=== PATIENT | male | born 1965 | race Hispanic/Latino ===

== ENCOUNTER 2019-05-24 16:59 | Inpatient (IN) | payer MEDICARE, OTHER ==
[~2019-05-24] VITALS: Ht 175.3 cm; Wt 110.5 kg
[~2019-05-24 16:59] MED LIST: FUROSEMIDE40 MG PO; HYDRALAZINE HCL25 MG PO; METOPROLOL TART25 MG PO
--- NOTE | 2019-05-24 17:12 | NUR ---
PT TAKEN TO RM 5 VIA W/C AND PLACED ON STRETCHER. PT VERY DIAPHORETIC AND STARTED SEIZING. CPR STARTED
--- NOTE | 2019-05-24 17:15 | NUR ---
SEE CODE BLUE SHEET FOR MEDS GIVEN DURING CPR.
[2019-05-24] MEDS ORDERED: SODIUM CHLORIDE 0.9% 1000ML 1,000 ML IV STA (17:18)
[2019-05-24] MEDS ORDERED: SODIUM CHLORIDE 0.9% 1000ML 1,000 ML ONE (17:22)
[2019-05-24] MEDS ORDERED: SODIUM BICARBONATE 8.4% SYRING 50 ML ONE (17:29)
[2019-05-24 17:39] LABS: BASOPHILS # (AUTO) 0.1 (0.0-0.1); BASOPHILS % 0.7 % (0.0-1.0); EOSINOPHILS # (AUTO) 0.3 (0.0-0.4); EOSINOPHILS % 2.7 % (0.0-6.0); HEMATOCRIT 41.9 % (38.2-49.6); HEMOGLOBIN 13.5 g/dL (14.0-18.0); LYMPHOCYTES # (AUTO) 4.3 (1.0-3.2); LYMPHOCYTES % 41.2 % (18.0-39.1); MEAN CORPUSCULAR HEMOGLOBIN 33.6 pg (28-32); MEAN CORPUSCULAR HGB CONC 32.2 g/dL (31-35); MEAN CORPUSCULAR VOLUME 104.2 fL (81-99); MONOCYTES # (AUTO) 0.7 (0.2-0.8); MONOCYTES % 6.9 % (4.4-11.3); NEUTROPHILS % 48.2 % (38.7-80.0); PLATELET COUNT 216 x10e3/uL (140-360); RED BLOOD COUNT 4.02 x10e6/uL (4.3-5.7); RED CELL DISTRIBUTION WIDTH 15.6 % (11.7-14.4)
[2019-05-24 17:54] LABS: ALBUMIN/GLOBULIN RATIO 0.9 (0.8-2.0); ANION GAP 28.2 mmol/L (8-16); CALCIUM 10.4 mg/dL (8.4-10.2); CREATININE, SERUM 11.52 mg/dL (0.72-1.25); POTASSIUM 4.2 mmol/L (3.5-5.1)
[2019-05-24 17:54] LABS: INR 1.04; PROTHROMBIN TIME 14.1 seconds (11.9-14.5)
[2019-05-24 17:55] LABS: PARTIAL THROMBOPLASTIN TIME 28.5 seconds (23.8-35.5)
[2019-05-24 18:13] LABS: THYROID STIMULATING HORMONE 1.029 uIU/mL (0.350-4.940)
[2019-05-24] MEDS ORDERED: LIDOCAINE HCL 2% LOCAL 20 ML VIAL ONE (18:15)
[2019-05-24] MEDS ORDERED: NITROGLYCERIN/D5W 200 MCG/ML 250 ML ONE (18:15)
[2019-05-24] MEDS ORDERED: HEPARIN SOD/SOD CHLORIDE 2,000 ML ONE (18:15)
--- NOTE | 2019-05-24 18:15 | NUR ---
DR. SPRING HAS UPDATED PT'S FAMILY.
--- NOTE | 2019-05-24 18:15 | Diagnostic Imaging Report ---
EXAMINATION: CHEST SINGLE (PORTABLE) INDICATION: Shortness of breath, intubation. COMPARISON: Chest radiograph 07/17/2014. FINDINGS: TUBES and LINES: ET tube terminates 2.4 cm above the reyna. LUNGS: The lungs are moderately inflated. There are are diffuse bilateral airspace opacities. PLEURA: No pleural effusion or pneumothorax. HEART AND MEDIASTINUM: The cardiomediastinal silhouette is unremarkable. BONES AND SOFT TISSUES: No acute osseous abnormality. UPPER ABDOMEN: No free air under the diaphragm. IMPRESSION: Diffuse bilateral airspace opacities, which may reflect pulmonary edema and/or multifocal pneumonia. ET tube as above. No evidence of pneumothorax Signed by: Dr. Sakshi Kaufman MD on 05/24/2019 6:11 PM
[2019-05-24 18:17] LABS: B-TYPE NATRIURETIC PEPTIDE2 560.7 pg/mL (0-100)
[2019-05-24] MEDS ORDERED: HEPARIN SOD (PORCINE) 1000 UNIT/ML 30ML ONE (18:18)
--- NOTE | 2019-05-24 18:18 | Diagnostic Imaging Report ---
Examination: CT BRAIN WO History:Seizures Comparison studies:None Technique: Axial images were obtained from the skull base to the vertex. Coronal and sagittal images reconstructed from the axial data. Dose modulation, iterative reconstruction, and/or weight based adjustment of the mA/kV was utilized to reduce the radiation dose to as low as reasonably achievable. Intravenous contrast: None Findings: Scalp: No abnormalities. Bones: No fractures, blastic or lytic lesions. Brain sulci: Appropriate for age. Ventricles: Normal in size and configuration. No hydrocephalus. Extra-axial space: No abnormalities. Parenchyma: No masses, hemorrhage, or acute or chronic cortical based vascular insults.. Sellar/suprasellar region: No abnormalities. Craniocervical junction: Patent foramen magnum. No Chiari one malformation. Incidental findings: None. Impression: No intracranial abnormalities. Signed by: Dr. Blanquita Fraser M.D. on 05/24/2019 6:15 PM
[2019-05-24] MEDS ORDERED: FENTANYL CITRATE/PF 100MCG/2 ML INJ ONE (18:19)
[2019-05-24] MEDS ORDERED: MIDAZOLAM HCL 2 MG/2 ML VIAL ONE (18:19)
[2019-05-24 18:22] LABS: ABG HCO3 28 mmol/L (23-28); ABG PCO2 71 mmHg (41-51); ABG PO2 68 mmHg (80-105)
--- NOTE | 2019-05-24 18:25 | NUR ---
DR. Vivek BROWNING HAS SPOKEN WITH [facility] INTERVENTIONS
--- NOTE | 2019-05-24 18:35 | NUR ---
PT. TAKEN TO RESIDENT MANAGER.
[2019-05-24] MEDS ORDERED: IOPAMIDOL 370 MG/ML 200 ML INFUS..BTL INJ ONE (18:45)
[2019-05-24] MEDS ORDERED: ATROPINE SULFATE 0.1 MG/ML 10ML SYR ONE ×3 (18:50→23:42)
--- NOTE | 2019-05-24 18:51 | NUR ---
FAMILY ESCORTED TO BILLING AND QUALITY TECHNICIAN WAITING ROOM.
[2019-05-24 19:22] VITALS: BP 173/89
--- OUTSIDE RECORDS SUMMARY | 2019-05-24 19:39 | XMS REPORT ---
Author Author [facility] Address Unknown Phone Unavailable Care Team Providers Care Machine Operator Cane Cutter Name Role Phone Javad SPRING Unavailable Unavailable Problems This patient has no known problems. Allergies, Adverse Reactions, Alerts This patient has no known allergies or adverse reactions. Medications This patient has no known medications. Results Test Description Test Time Test Comments Text Results Atomic Results Result Comments CT BRAIN WO 2019-05-24 18:12:00 [place] [id number] Patient Name: LUDWIG MCGEE MR #: [id number] : 1965 Age/Sex: 53/M Req #: [id number] Adm Physician: Ordered by: FARNAZ SPRING MD Report #: [id number] Location: ER Room/Bed: Procedure: [id number] CT/CT BRAIN WO Exam Date: 05/24/19 Exam Time: 1800 REPORT STATUS: Signed Examination: CT BRAIN WO History:Seizures Comparison studies:None Technique: Axial images were obtained from the skull base to the vertex. Coronal and sagittal images reconstructed from the axial data. Dose modulation, iterative reconstruction, and/or weight based adjustment of the mA/kV was utilized to reduce the radiation dose to as low as reasonably achievable. Intravenous contrast: None Findings: Scalp: No abnormalities. Bones: No fractures, blastic or lytic lesions. Brain sulci: Appropriate for age. Ventricles: Normal in size and configuration. No hydrocephalus. Extra-axial space: No abnormalities. Parenchyma: No masses, hemorrhage, or acute or chronic cortical based vascular insults.. Sellar/suprasellar region: No abnormalities. Craniocervical junction: Patent foramen magnum. No Chiari one malformation. Incidental findings: None. Impression: No intracranial abnormalities. Signed by: Dr. Blanquita Fraser M.D. on 05/24/2019 6:15 PM Dictated By: BLANQUITA HERNANDEZ MD 14 Transcribed By: BRIAN on 05/24/191814 COPY TO: FARNAZ SPRING MD CHEST SINGLE (PORTABLE) 2019-05-24 18:09:00 [place] [id number] Patient Name: LUDWIG MCGEE MR #: [id number] : 1965 Age/Sex: 53/M Req #: [id number] Adm Physician: Ordered by: CARMINE CHAVES AUTOMOBILE BODY REPAIR SUPERVISOR Report #: [id number] Location: ER Room/Bed: Procedure: [id number] DX/CHEST SINGLE (PORTABLE) Exam Date: 05/24/19 Exam Time: 1735 REPORT STATUS: Signed EXAMINATION: CHEST SINGLE (PORTABLE) INDIC ATION: Shortness of breath, intubation. COMPARISON: Chest radiograph 07/17/2014. FINDINGS: TUBES and LINES: ET tube terminates 2.4 cm above the reyna. LUNGS: The lungs are moderately inflated. There are are diffuse bilateral airspace opacities. PLEURA: No pleural effusion or pneumothorax. HEART AND MEDIASTINUM: The cardiomediastinal silhouette is unremarkable. BONES AND SOFT TISSUES: No acute osseous abnormality. UPPER ABDOMEN: No free air under the diaphragm. IMPRESSION: Diffuse bilateral airspace opacities, which may reflect pulmonary edema and/or multifocal pneumonia. ET tube as above. No evidence of pneumothorax Signed by: Dr. Kamila Chavira MD on 05/24/2019 6:11 PM Dictated By: KAMILA CHAVIRA MD 10 Transcribed By: BRIAN on 05/24/191810 COPY TO: CARMINE CHAVES NP
[2019-05-24 20:00] VITALS: BP 161/87
[2019-05-24] MEDS: PROPOFOL IV EMULSION 10MG/ML 100 ML IV SCH (20:14)
[2019-05-24] MEDS ORDERED: HYDRALAZINE HCL 20 MG/ML VIAL IV PRN (20:30)
[2019-05-24 21:00] VITALS: BP 122/72
[2019-05-24] MEDS: SODIUM CHLORIDE 0.9% 1000ML 1,000 ML IV SCH (21:42)
[2019-05-24] MEDS ORDERED: DEXMEDETOMIDINE 200MCG/NS 50ML 50 ML IV ONE (21:57)
[2019-05-24 22:00] VITALS: BP 115/78
[2019-05-24] MEDS ORDERED: DEXMEDETOMIDINE HCL 200 MCG in SODIUM CHLORIDE 0.9% 50ML 48 ML IV PRN ×2 (22:00→23:00)
[2019-05-24] MEDS ORDERED: ALBUMIN 25% 12.5GM 0.25 GM/ML BTL IV ONE (22:00)
[2019-05-24 23:00] VITALS: BP 115/78
[2019-05-24] MEDS ORDERED: EPINEPHRINE HCL 1:1000 1ML 4.8 MG in DEXTROSE 5% 250ML 300 ML IV SCH (23:11)
[2019-05-24] MEDS ORDERED: LORAZEPAM INJ 2 MG/ML VIAL IV ONE (23:30)
[2019-05-24] MEDS ORDERED: EPINEPHRINE HCL SYRINGE ONE (23:32)
[2019-05-24] MEDS ORDERED: SODIUM CHLORIDE 0.9% INJ PRN ×2 (23:45)
[2019-05-24] MEDS ORDERED: LORAZEPAM INJ PRN ×2 (23:45)
[2019-05-24 23:53] LABS: BASOPHILS % 0.2 % (0.0-1.0); EOSINOPHILS # (AUTO) 0.1 (0.0-0.4); EOSINOPHILS % 0.9 % (0.0-6.0); HEMATOCRIT 36.7 % (38.2-49.6); HEMOGLOBIN 12.3 g/dL (14.0-18.0); LYMPHOCYTES # (AUTO) 0.8 (1.0-3.2); LYMPHOCYTES % 4.7 % (18.0-39.1); MEAN CORPUSCULAR HEMOGLOBIN 33.7 pg (28-32); MEAN CORPUSCULAR HGB CONC 33.5 g/dL (31-35); MONOCYTES # (AUTO) 1.1 (0.2-0.8); MONOCYTES % 6.9 % (4.4-11.3); NEUTROPHILS # (AUTO) 13.9 (2.1-6.9); NEUTROPHILS % 86.9 % (38.7-80.0); RED BLOOD COUNT 3.65 x10e6/uL (4.3-5.7); RED CELL DISTRIBUTION WIDTH 15.7 % (11.7-14.4)
[2019-05-24 23:58] LABS: MEAN CORPUSCULAR VOLUME 100.5 fL (81-99); PLATELET COUNT 181 x10e3/uL (140-360)
[2019-05-25] VITALS (23 sets, daily range): BP systolic 77–149; BP diastolic 48–87
[2019-05-25 00:11] LABS: ALBUMIN 4.3 g/dL (3.5-5.0); ALBUMIN/GLOBULIN RATIO 1.1 (0.8-2.0); ANION GAP 25.3 mmol/L (8-16); CALCIUM 10.5 mg/dL (8.4-10.2); CREATININE, SERUM 9.23 mg/dL (0.72-1.25)
[2019-05-25 00:14] LABS: POTASSIUM 5.3 mmol/L (3.5-5.1)
[2019-05-25] MEDS ORDERED: DEXTROSE 5% 250ML 250 ML IV ONE (00:17)
[2019-05-25] MEDS ORDERED: EPINEPHRINE HCL SYRINGE ONE (00:17)
[2019-05-25 00:18] LABS: CREATINE KINASE MB 47.2 ng/mL (0-5.0)
--- NOTE | 2019-05-25 00:40 | NUR ---
Called and spoke with Dr Norman. Notified of rapid response due to HR 28. Pt is now paced at 60 bpm. BP has been 70/80 systolic, but now 90's systolic. The pt is awake and oriented. Dr Vivek Patiño ordered dopamine drip.
[2019-05-25] MEDS ORDERED: CEFEPIME 1GM/NS 0.9% 50 ML 50 ML IV SCH (02:00)
[2019-05-25] MEDS ORDERED: DOXYCYCLINE 100MG/NS 100ML 100 ML IV SCH ×2 (02:00→03:45)
--- NOTE | 2019-05-25 03:00 | NUR ---
Dr No at bedside place a short right IJ line after unsuccessful attempt inserting triple lumen.
--- NOTE | 2019-05-25 03:33 | Diagnostic Imaging Report ---
EXAMINATION: CHEST SINGLE (PORTABLE) COMPARISON: Chest x-ray 05/24/2019 INDICATION: ^chf; S/P CENTRAL LINE PLACEMENT ^[id number] ^0310 DISCUSSION: Frontal view of the chest obtained at 0314 hours. HEART AND MEDIASTINUM: The heart is enlarged and stable in morphology LINES: Endotracheal tube terminates 5 to 6 cm above the reyna. A central venous catheter is not visualized. No evidence of enteric tube. LUNGS: Low lung volumes. Diffuse airspace opacities show some improvement. PLEURA: No pleural effusion or pneumothorax. BONES AND SOFT TISSUES: No focal osseous lesion. The soft tissues are normal. IMPRESSION: No evidence for central line. Endotracheal tube as described above. Minimal improvement in alveolar consolidation. Signed by: Dr. Isabell Faust MD on 05/25/2019 3:30 AM
[2019-05-25 03:57] LABS: ABG HCO3 30 mmol/L (23-28); ABG PCO2 49 mmHg (41-51); ABG PO2 249 mmHg (80-105)
[2019-05-25] MEDS: LORAZEPAM INJ 2 MG/ML VIAL IV PRN ×6 (04:02→23:53)
[2019-05-25] MEDS ORDERED: SODIUM CHLORIDE 0.9% 250ML 250 ML ONE (04:04)
[2019-05-25] MEDS: DOXYCYCLINE 100MG/NS 100ML 100 ML IV SCH ×2 (04:52→15:26)
[2019-05-25 05:04] LABS: BASOPHILS % 0.1 % (0.0-1.0); HEMATOCRIT 37.7 % (38.2-49.6); HEMOGLOBIN 12.4 g/dL (14.0-18.0); LYMPHOCYTES # (AUTO) 0.6 (1.0-3.2); LYMPHOCYTES % 4.3 % (18.0-39.1); MEAN CORPUSCULAR HEMOGLOBIN 33.4 pg (28-32); MEAN CORPUSCULAR HGB CONC 32.9 g/dL (31-35); MEAN CORPUSCULAR VOLUME 101.6 fL (81-99); MONOCYTES # (AUTO) 0.6 (0.2-0.8); MONOCYTES % 4.8 % (4.4-11.3); NEUTROPHILS # (AUTO) 12.1 (2.1-6.9); NEUTROPHILS % 90.3 % (38.7-80.0); PLATELET COUNT 169 x10e3/uL (140-360); RED BLOOD COUNT 3.71 x10e6/uL (4.3-5.7); RED CELL DISTRIBUTION WIDTH 15.7 % (11.7-14.4)
[2019-05-25 05:10] LABS: INR 1.06; PROTHROMBIN TIME 14.3 seconds (11.9-14.5)
[2019-05-25] MEDS ORDERED: MIDAZOLAM HCL 2 MG/2 ML VIAL ONE ×5 (05:10→17:27)
[2019-05-25 05:11] LABS: PARTIAL THROMBOPLASTIN TIME 27.1 seconds (23.8-35.5)
[2019-05-25 05:17] LABS: ALBUMIN 4.3 g/dL (3.5-5.0); ALBUMIN/GLOBULIN RATIO 1.1 (0.8-2.0); ANION GAP 24.9 mmol/L (8-16); CALCIUM 10.2 mg/dL (8.4-10.2); CREATININE, SERUM 9.75 mg/dL (0.72-1.25)
[2019-05-25 05:23] LABS: POTASSIUM 6.9 mmol/L (3.5-5.1)
--- NOTE | 2019-05-25 05:30 | NUR ---
Right IJ not flushing, unable to obtain blood return. Dr. French to bedside and placed left IJ triple lumen cath x 1 attempt. Patient tolerated procedure well
[2019-05-25] MEDS ORDERED: SOD POLYSTYRENE SULFONATE SUSP 15 GM/60 ML BTL PO STA (05:31)
[2019-05-25] MEDS ORDERED: CALCIUM GLUCONATE 10% INJ 0.465 MEQ/ML VIAL IV STA (05:31)
[2019-05-25] MEDS ORDERED: DEXTROSE 50% SYRINGE 50 ML IV STA (05:31)
[2019-05-25 05:42] LABS: CREATINE KINASE MB 85.6 ng/mL (0-5.0)
[2019-05-25] MEDS ORDERED: INSULIN REGULAR, HUMAN 100 UNIT/1 ML 3ML VIAL IV ONE (05:45)
--- NOTE | 2019-05-25 05:55 | NUR ---
Called Dr. Nelson with labs, informed of orders received from Dr. French to treat elevated potassium. Orders received to redraw BMP - specimen obtained and taken to lab. will hold all treatment until new lab results reported to Dr. Nelson.
--- NOTE | 2019-05-25 05:59 | Diagnostic Imaging Report ---
EXAMINATION: CHEST SINGLE (PORTABLE) COMPARISON: Chest x-ray 0314 hours INDICATION: ^S/P CVC PLACEMENT DISCUSSION: Frontal view of the chest obtained at 0535 hours. HEART AND MEDIASTINUM: The heart is enlarged and stable in morphology. The aorta is tortuous LINES: Right IJ catheter terminates in the brachiocephalic vein. Endotracheal tube terminates approximate 5 cm above the reyna. LUNGS: Stable low lung volumes. No change in diffuse pulmonary infiltrates PLEURA: No pleural effusion or pneumothorax. BONES AND SOFT TISSUES: No focal osseous lesion. The soft tissues are normal. IMPRESSION: Left IJ catheter terminates in the brachiocephalic vein without pneumothorax. No change in diffuse pulmonary infiltrates. Endotracheal tube as described above. Signed by: Dr. Isabell Faust MD on 05/25/2019 5:55 AM
--- NOTE | 2019-05-25 06:04 | NUR ---
Spoke with ER physician, Dr. Gillian momin to use left IJ central line
--- NOTE | 2019-05-25 06:45 | Consultation ---
DATE OF CONSULTATION: 05/24/2019 Pulmonary and Critical Care Medicine Consult REASON FOR REFERRAL: Respiratory failure, multiorgan dysfunction. HISTORY OF PRESENT ILLNESS: Mr. Duke is a pleasant 53-year-old gentleman with shortness of breath. The patient came to emergency room with shortness of breath, but he was seem to have increasing shortness of breath. The patient degenerated into asystole. He had 8 minutes into return of spontaneous circulation. The patient was intubated during the time frame. The patient after the arrest had some arrhythmia of bradycardia, possibly junctional rhythm with bradycardia into the 30 beats per minute. The patient required pressors and positive chronotropes. The patient's chest x-ray with manish pulmonary edema. He did have dialysis already of 3 hours with 2 L out. He did eventually recover full neurologic status, asking and writing complex questions. PAST MEDICAL HISTORY: Diabetes, hypertension, ESRD, chronic anemia, peripheral vascular disease, status post toe amputation, possible obstructive sleep apnea. MEDICATIONS: Medication list reviewed per the chart record. ALLERGIES: NO KNOWN DRUG ALLERGIES. SOCIAL HISTORY: No smoking. No drinking. No drugs. He is and at bedside. FAMILY HISTORY: Noncontributory. REVIEW OF SYSTEMS: Cannot get as he is intubated, not speaking. OBJECTIVE: VITAL SIGNS: Afebrile, vital signs stable recently but poorly. He is looking better and more stable with heart rate 110 beats per minute. HEENT: Normocephalic, atraumatic. NECK: Supple. Throat midline. LUNGS: Bilateral air entry, rare rhonchi. CARDIOVASCULAR: S1, S2. No murmurs, rubs, or gallops. ABDOMEN: Soft and nontender. EXTREMITIES: No clubbing. No cyanosis. There is no edema. INTEGUMENT: No rash. No purpura. LABORATORY DATA: ABG; 7.20/21/68/28. 5.2 potassium, 25 bicarbonate, 14 BUN, 9.2 creatinine. 6 white count, 37 hematocrit, 181 platelets. The albumin was 4.3, globulin 3.8, troponin was 6.3, 561 BNP, lactic acid 84. TSH normal. 16 white count, 37 hematocrit, 101 platelets. Chest x-ray with manish pulmonary edema, intubated. CT scan of the head with no acute abnormality. IMPRESSION AND PLAN: 1. Acute respiratory failure, intubated. 2. Pulmonary edema. 3. Abnormal chest x-ray, possible pneumonia. 4. Status post cardiac arrest. 5. Critical bradycardia, possible junctional rhythm versus atrial fibrillation with junctional rhythm versus other sick sinus syndrome with bradycardia. 6. End-stage renal disease. 7. Hypertension. 8. Diabetes. 9. Chronic anemia. 10. Peripheral vascular disease, status post toe amputation. 11. Shock, likely attributed. Heart catheterization just done with no obstructive coronary artery disease, LVEF 65%. 12. Encephalopathy, multifactorial including mild anoxia, resolving fast. 13. Shock. Multiple orders given. Maintain blood pressure and heart rate. Maintain intubated. Adjust settings and check blood gas. Continue positive chronotrope and mild inotrope. Sedate him for safety and comfort. We will follow along closely. Greater than 30 minutes in direct care today, multiple evaluations and intervention. Thank you very much, Dr. Miranda and Dr. Mcgraw for allowing me a chance to participate in the care of Mr. Braxton Duke. Please call with any questions. MD MARLENE Mcallister/ROBER /[id number]
[2019-05-25 06:57] LABS: ANION GAP 22.3 mmol/L (8-16); CALCIUM 9.7 mg/dL (8.4-10.2); CREATININE, SERUM 9.86 mg/dL (0.72-1.25)
--- NOTE | 2019-05-25 07:15 | Operative Report ---
DATE OF PROCEDURE: 05/25/2019 SURGEON: Fredi No MD PROCEDURE: Central venous catheter placement, ultrasound guided. INDICATION: Medication administration, shock. CONSENT: Informed consent obtained from the patient. ANESTHESIA: 5 mL 1% anesthesia administered twice due to need to reprep the patient. OPERATIVE FINDINGS: Under ultrasound guidance, the patient had sterile prep and drape. The patient had ultrasound identification of the right internal jugular vein at the anterior triangle area. The central venous catheter needle was inserted on three different occasions into the right IJ with limitation on advancement of the guidewire. As we cannot confirm full advancement of the guidewire, we never dilated into this area as there was consideration for obstruction at this level. Thereafter, we prepped the patient once again with more 1% lidocaine to get that 5 mL total and the single- lumen short internal jugular catheter was inserted into the right internal jugular vein without difficulty. There was flow back upon aspiration and this line was flushed and sutured in place. Therefore, the procedure was terminated after. Difficult/aborted placement of the three-lumen central venous catheter via the right internal jugular access. Consideration for venous obstruction. Thereafter successful single-lumen short internal jugular catheter passed into right internal jugular vein with ultrasound guidance successfully. RECOMMENDATION: May use line. Continue to get chest x-ray not to confirm the line placement but to ensure there is no pneumothorax after procedure. Consideration can be per Renal or Vascular specialist and the need to further study the venous anatomy if indicated. MD MARLENE Mcallister/MODL /[id number] MTDMayte
[2019-05-25 07:17] LABS: POTASSIUM 6.3 mmol/L (3.5-5.1)
--- NOTE | 2019-05-25 07:53 | NUR ---
NOTIFIED MD DIAZ OF CRITICAL LABS STATES HE HAS ALREADY SPOKEN TO DIALYSIS NURSE
--- NOTE | 2019-05-25 08:18 | NUR ---
SPOKE TO REGARDING POC, STATES HE WILL CALL EP DOC TO DISCUSS FURTHER POC.
[2019-05-25] MEDS: FAMOTIDINE 20 MG/2 ML VIAL IV SCH (08:21)
[2019-05-25] MEDS: HEPARIN SOD (PORCINE) 5,000 UNIT/ML VIAL SC SCH ×2 (08:28→20:21)
[2019-05-25] MEDS ORDERED: RENVELA0.8 GM PO (10:33)
[2019-05-25] MEDS ORDERED: SODIUM BICARBO650 MG PO (10:34)
[2019-05-25] MEDS ORDERED: CLONIDINE HCL0.1 MG PO (10:34)
--- NOTE | 2019-05-25 12:42 | Consultation ---
DATE OF CONSULTATION: 05/25/2019 Renal Consultation HISTORY OF PRESENT ILLNESS: Thank you for the consultation. Mr. Duke is a well known patient of mine, 53-year-old male patient with a past medical history significant for end-stage renal disease. The patient has been on hemodialysis, Saturday, Saturday, and Saturday at [facility] under my care. The patient also has a prior history of hypertension. In any case, the patient came into the hospital emergency room apparently with shortness of breath. Chest x-ray was consistent with what appears to be pulmonary edema. During his time in the emergency room apparently, the patient became unresponsive and underwent a Code ABC, had to be intubated. Subsequently, was taken urgently to the cardiac cath lab technologist and also urgently had dialysis treatment yesterday for about 2-1/2 hours, about 2 L of fluid were removed. The patient's potassium this morning was high at 6.9, was treated medically and repeat potassium was slightly better at 6.3. He remains intubated. However, he is responsive to commands and follows commands appropriately. The patient is currently seen on the dialysis treatment, which he is tolerating. He is being dialyzed on a low-potassium bath. He also remains on low-dose dopamine to keep his heart rate up since he has been getting more bradycardic without it. He is also scheduled to have a pacemaker placed later today. Most of the history is obtained from the chart. The patient is unable to provide any history since he is intubated and sedated. PAST MEDICAL HISTORY: As outlined above. MEDICATIONS: That he takes at home, metoprolol, hydralazine, furosemide, and Renvela. Medications have all been reviewed per chart. REVIEW OF SYSTEMS: As in HPI, otherwise all systems negative or not obtainable. FAMILY HISTORY: Noncontributory. SOCIAL HISTORY: No tobacco, no alcohol use. ALLERGIES: NO KNOWN DRUG ALLERGIES. PHYSICAL EXAMINATION: VITAL SIGNS: Blood pressure 140s/70s, heart rate is in the 100, and 18 respiration. The patient is on the vent. HEENT: No cervical lymphadenopathy. NECK: Supple without masses. No obvious JVD. Moist-appearing mucosa. SKIN: Moist with good skin turgor. CHEST WALL: Good expansion. No chest wall tenderness. LUNGS: Rales bilateral lung aranda. CARDIOVASCULAR: S1 and S2. No obvious gallop or murmur. ABDOMEN: Soft. Positive bowel sounds. Nontender. EXTREMITIES: Evidence of 2+ edema. No clubbing. No cyanosis. NEUROLOGICAL: He is intubated and sedated. He is, however, arousable and does follow commands. LABORATORY DATA: H and H are 12.4 and 37.7. Chemistry; sodium 137, potassium was 6.9, now at 6.3, earlier last night was 5.2, that was post dialysis. When he came in, it was actually 4.2. Sodium 137, potassium 6.3, chloride 95, bicarb 26, BUN 45, and creatinine 9.86. Chest x-ray shows diffuse bilateral pulmonary infiltrates, likely pulmonary edema. IMPRESSION AND PLAN: 1. End-stage renal disease. We will continue to provide hemodialysis. We will do 4 hours today on 1% 1K bath, which is a low K bath to allow the potassium to come down and we will make further recommendations. Recheck labs again in the morning including basic metabolic panel, mag, phos, CBC and make further recommendations. 2. Hypertension. Would recommend to use p.r.n. medications for now, especially since the patient is on dopamine. I would not be too aggressive with lowering his blood pressure since I would like to be able to do more ultrafiltration to allow for improvement in his pulmonary edema. Would gradually re-introduce his blood pressure medications. 3. Bradycardia. Plan is for pacemaker as per Cardiology recommendations. We will keep the dopamine at low doses to allow for the heart rate to increase. We will also do dialysis on a low-potassium bath to allow for the potassium to improve, which should also help for the bradycardia. 4. Anemia of chronic disease. Stable HGB. We will continue to monitor closely and make further recommendations. 5. Hyperkalemia has been treated medically and also did an urgent dialysis last night and we will also do another dialysis session today on a low-potassium bath. Thank you once again for the consultation. Total time spent in this consultation is 35 minutes. MD MIGEL Dhaliwal/MODL /[id number] cc: MD Joe Johansen MD
--- NOTE | 2019-05-25 13:02 | Progress Note ---
DATE: 05/25/2019 Cardiology Progress Note SUBJECTIVE: The patient remains intubated, but will follow commands and communicate with writing per the staff. OBJECTIVE: VITAL SIGNS: Temperature 98.5 degrees, pulse 101, respiratory rate 18, blood pressure 149/72, oxygen saturation 100% on mechanical ventilation. GENERAL: Well-developed and well-nourished man, in no acute distress. Remains intubated. LUNGS: Clear to auscultation in anterior lung aranda. No wheezes or crackles. CARDIOVASCULAR: Tachycardic, but regular. No murmur. Normal S1, S2. ABDOMEN: Soft, nontender. EXTREMITIES: No edema. CARDIAC MEDICATIONS: None. LABORATORY DATA: WBC 13.35, hemoglobin 12.4, hematocrit 37.7, platelets 169. Sodium 137, potassium 6.3, chloride 95, CO2 of 26, BUN 45, creatinine 9.86. Troponin 19.196. TELEMETRY: Sinus rhythm, episode of what appears to be atrial fib with a slow ventricular response. IMPRESSION: 1. Acute respiratory failure, currently intubated. 2. Status post cardiac arrest. 3. Elevated troponin. 4. Bradycardia, appears to be sick sinus syndrome. 5. End-stage renal disease, on hemodialysis. 6. Hypertension. 7. Diabetes mellitus. 8. Peripheral arterial disease. RECOMMENDATIONS: Mechanical ventilation per Pulmonary. Continue supportive care. The patient is undergoing hemodialysis at this time per Nephrology for his volume overload as well as hyperkalemia. Continue trending cardiac biomarkers. The patient had emergent cardiac catheterization done yesterday evening with no obstructive coronary artery disease, likely secondary to his cardiac arrest. LVEF was preserved at the time of cardiac catheterization. EP has been consulted for permanent pacemaker placement, await their evaluation. Monitor patient closely on telemetry. Hold all AV mamie blocking agents. Thank you for this consult. We will continue to follow. Ching Melchor MD ABS/MODL /[id number]
[2019-05-25 13:08] LABS: CREATINE KINASE MB 64.3 ng/mL (0-5.0)
--- NOTE | 2019-05-25 13:48 | NUR ---
Pulmonary / CCM Medicine Date of encounter: 05/25/2019 SUBJECTIVE: pATIENT remains in the ICU. Intubated with the critical bradycardia, possible junctional escape as low as 29 bpm the patient is tentative for PPM insertion today. remains on low dose dopamine < 5 mcg /min pt is awake REVIEW OF SYSTEMS: Cannot get as he is intubated, not speaking. OBJECTIVE: VITAL SIGNS: vital signs reviewed per EMR HEENT: Normocephalic, atraumatic. NECK: Supple. Throat midline. LUNGS: Bilateral air entry, rare rhonchi. CARDIOVASCULAR: S1, S2. No murmurs, rubs, or gallops. ABDOMEN: Soft and nontender. EXTREMITIES: No clubbing. No cyanosis. There is no edema. INTEGUMENT: No rash. No purpura. LABORATORY DATA: 6.3 k, hco3 26, cr 9.9. 13 wbc. 38 hct. plt 169 Chest x-ray with improving pulmonary edema, intubated. IMPRESSION AND PLAN: 1. Acute respiratory failure, intubated. 2. Pulmonary edema. 3. Abnormal chest x-ray, possible pneumonia. 4. Status post cardiac arrest. 5. Critical bradycardia, symptomatic junctional rhythm escape (sick sinus syndrome) 6. End-stage renal disease. 7. Hypertension. 8. Diabetes. 9. Chronic anemia. 10. Peripheral vascular disease, status post toe amputation. 11. Shock, likely distributive. Heart catheterization just done with no obstructive coronary artery disease, LVEF 65%. 12. Encephalopathy, resolved? Dopamine PPM investigation/implantation likely today PM HD this AM. Treat kalemia Maintain intubated, ventilator suppport. Glycemic control Thank you very much, Dr. Miranda and Dr. Mcgraw for allowing me a chance to participate in the care of Mr. Braxton Duke. Please call with any questions. Greater than 30 minutes in direct care today not including procedure time, with multiple evaluations and intervention during the night and day.
--- NOTE | 2019-05-25 14:48 | NUR ---
NOTIFIED OFFICE OF PATIENT TRANSFER OF CARE TO HIS SERVICE.
[2019-05-25] MEDS ORDERED: FENTANYL CITRATE/PF 100MCG/2 ML INJ ONE ×2 (15:36→17:27)
[2019-05-25] MEDS ORDERED: BACITRACIN 50,000 UNIT VIAL ONE (15:37)
[2019-05-25] MEDS ORDERED: LIDOCAINE HCL 2% LOCAL 20 ML VIAL ONE (15:37)
[2019-05-25] MEDS ORDERED: VANCOMYCIN 1GM/NS 250 ML 250 ML ONE (15:37)
[2019-05-25] MEDS ORDERED: SODIUM CHLORIDE 0.9% 1000ML 3,000 ML ONE (15:38)
[2019-05-25] MEDS: SODIUM CHLORIDE 0.9% 1000ML 1,000 ML IV SCH (15:41)
--- NOTE | 2019-05-25 15:45 | NUR ---
PATIENT TO CASH REGISTER OPERATOR FOR PACEMAKER PLACEMENT.
[2019-05-25] MEDS: SODIUM BICARBONATE 650 MG TAB PO SCH (17:00)
[2019-05-25] MEDS: SEVELAMER CARBONATE 800 MG TAB PO SCH (17:00)
--- NOTE | 2019-05-25 18:15 | NUR ---
RECEIVED PT FROM BRUSH HEAD MAKER FOR PACEMAKER PLACEMENT, R UPPER CHEST PRESSURE DRESSING NOTED PER TO STAY IN PLACE AT THIS TIME. WILL CONTINUE TO MONITOR
--- NOTE | 2019-05-25 19:30 | History and Physical ---
ADDENDUM: Time spent around 45 minutes. MD CUBA Johansen/ROBER /[id number]
--- NOTE | 2019-05-25 19:35 | History and Physical ---
HISTORY OF PRESENT ILLNESS: The patient is a 53-year-old male, past medical history positive for hypertension, diabetes, history of dialysis also. Apparently, never had any cardiac issues. He has history of smoking also. The patient had a cardiac arrest and he was successfully resuscitated. He was found to have atrial fibrillation and left bundle-branch block. He was found to have also hyperkalemia. He received dialysis today. The potassium is down to 6.3. He also was sent to the cardiac stucco laborer immediately. There was no evidence of any coronary artery disease and ejection fraction was 65%. The patient is intubated right now with a central line. He is undergoing dialysis. Apparently, he has been on dialysis for several years, like 4 or 5 years at least after he was diagnosed with diabetes. Permanent pacemaker going to be placed today. REVIEW OF SYSTEMS: The patient is intubated, cannot get any information obviously. PAST MEDICAL HISTORY: End-stage renal disease on dialysis for 4 or 5 years at least, uncontrolled diabetes mellitus type 2, and hypertension. SOCIAL HISTORY: He does smoke. He does not drink apparently, he does socially. PHYSICAL EXAMINATION: VITAL SIGNS: Blood pressure 113/50, temperature 98.5, heart rate 72 per minute, respiratory rate 22 per minute, and oxygen saturation 100%. HEART: Showed regular rhythm. Normal S1 and S2 sound. LUNGS: Clear bilaterally. ABDOMEN: Soft. EXTREMITIES: Show no evidence of cyanosis or hematoma. LABORATORY DATA: On the BMP; sodium 137, potassium 6.3, chloride 95, CO2 26, BUN 45, creatinine 9.86, and glucose 303. On the CBC; white blood cell count 13,300, hemoglobin 12.4, hematocrit 37.7, and platelet count 159,000. PTT 14.3, INR 1.06, and PTT 27.1. AST 70, ALT 23, total bilirubin 1.0, and alkaline phosphatase 110. FINAL IMPRESSION: 1. Status post cardiac arrest, most likely secondary to hyperkalemia. 2. Acute respiratory failure. 3. Hyperkalemia. 4. End-stage renal disease, on dialysis. 5. Uncontrolled diabetes mellitus type 2 with end-stage renal disease. 6. Hypotension. PLAN OF TREATMENT: The patient is going to go for pacemaker today. He is on dialysis, which we will continue. Continue dopamine infusion. Continue cefepime 1 g IV daily. Continue epinephrine drip p.r.n. for hypotension, lorazepam 2 mg IV q.2 hours as needed, doxycycline 100 mg IV twice a day, hydralazine 10 mg IV every 2 hours as needed for hypertension, propofol drip, Pepcid 20 mg daily, heparin 5000 units subcutaneously twice a day for DVT prophylaxis. I discussed the case with the family at the bedside and with the ER physician. The patient is in critical condition. Today, he is going to go for pacemaker. MD CUBA Johansen/ROBER /[id number]
[2019-05-25] MEDS: PROPOFOL IV EMULSION 10MG/ML 100 ML IV SCH (20:00)
[2019-05-25 22:00] LABS: CREATINE KINASE MB 30.6 ng/mL (0-5.0)
[2019-05-26] VITALS (25 sets, daily range): BP systolic 97–170; BP diastolic 44–103
[2019-05-26] MEDS: DOXYCYCLINE 100MG/NS 100ML 100 ML IV SCH ×2 (04:00→17:47)
--- NOTE | 2019-05-26 04:39 | Diagnostic Imaging Report ---
EXAMINATION: CHEST SINGLE (PORTABLE) INDICATION: Congestive heart failure COMPARISON: Chest radiograph 05/25/2019 5:35 AM FINDINGS: AP view TUBES and LINES: ET tube tip terminates in the mid intrathoracic trachea. Left jugular venous catheter tip projects at the expected location of the left brachiocephalic vein. New right chest wall cardiac device with leads in the right atrium and right ventricle. LUNGS: Lungs are well inflated. Lungs are clear. There is no evidence of pneumonia or pulmonary edema. Prominent central pulmonary vasculature. Hazy airspace opacities in the mid to lower lungs. PLEURA: No pleural effusion or pneumothorax. HEART AND MEDIASTINUM: Cardiac size is mildly enlarged. BONES AND SOFT TISSUES: No acute osseous lesion. Soft tissues are unremarkable. UPPER ABDOMEN: No free air under the diaphragm. IMPRESSION: New right chest wall cardiac device with leads in the right atrium and right ventricle. Mild cardiomegaly and pulmonary edema. Signed by: Andrade Albrecht DO on 05/26/2019 4:35 AM
--- NOTE | 2019-05-26 05:17 | Operative Report ---
DATE OF PROCEDURE: 05/25/2019 SURGEON: Dylan Baxter MD PREPROCEDURE DIAGNOSES: 1. Complete heart block. 2. Status post cardiac arrest from asystole and severe bradycardia. POSTPROCEDURE DIAGNOSES: 1. Complete heart block. 2. Status post cardiac arrest from asystole and severe bradycardia. 3. End-stage renal disease on hemodialysis. ESTIMATED BLOOD LOSS: 5 mL. COMPLICATIONS: None. PROCEDURES PERFORMED: 1. Dual chamber pacemaker placement. 2. Moderate sedation. Moderate conscious sedation was provided under my direct supervision by a sedation trained nurse. Sedation approximate time 30 minutes, Versed and fentanyl. There were no complications. See sedation form for details. DESCRIPTION OF PROCEDURE: After informed consent was obtained, the patient was brought to the electrophysiology laboratory in a fasting state. He was intubated and sedated. The area over his chest was prepped and draped in the usual sterile fashion. Moderate sedation and prophylactic antibiotic were given and 1% lidocaine was used as local anesthetic and a 3 cm skin incision was made in the right subclavicular area. Electrocautery, sharp and blunt dissection were used to bridge the muscular fascia and a pocket was created for the implantation of the device. Vascular access was obtained x2 in the right axillary vein using a modified Seldinger technique under fluoroscopic guidance. Two 7-Korean sheaths were placed. Ventricular lead advanced to the RV apex, R-wave 4, pacing 0.4 at 3.6. Atrial lead to the right atrial appendage, P-wave 1.5, pacing 0.4 at 3.6. Impedance around 400. Sheaths were removed from the body. Leads were secured through fascia using Ethibond. Pocket was irrigated with antibiotic solution using the pulse adjunct professor of [employer]. Hemostasis was meticulous. Leads were connected to the device and entire pacemaker sits in place in the pocket. Incision was closed using absorbable sutures and Dermabond. The patient tolerated the procedure well. The procedure was then complete. SUMMARY OF HARDWARE IMPLANT: The new pacemaker is Medtronic, serial #[id number]. The atrial lead is Medtronic, serial #[id number]. The ventricular lead is Medtronic, serial #[id number]. IMPRESSION: Successful dual chamber pacemaker placement via right axillary vein. PLAN: 1. Routine postoperative monitoring on telemetry bed. 2. Chest x-ray. 3. Follow up in 2 weeks. MD RUBIN Chacon/ROBER /[id number]
[2019-05-26 05:29] LABS: BASOPHILS % 0.2 % (0.0-1.0); EOSINOPHILS % 0.3 % (0.0-6.0); HEMATOCRIT 33.4 % (38.2-49.6); HEMOGLOBIN 10.7 g/dL (14.0-18.0); LYMPHOCYTES # (AUTO) 1.1 (1.0-3.2); LYMPHOCYTES % 12.6 % (18.0-39.1); MEAN CORPUSCULAR HEMOGLOBIN 33.3 pg (28-32); MONOCYTES # (AUTO) 0.7 (0.2-0.8); MONOCYTES % 7.9 % (4.4-11.3); NEUTROPHILS % 78.7 % (38.7-80.0); PLATELET COUNT 130 x10e3/uL (140-360); RED BLOOD COUNT 3.21 x10e6/uL (4.3-5.7); RED CELL DISTRIBUTION WIDTH 15.9 % (11.7-14.4)
[2019-05-26 05:53] LABS: ALBUMIN 3.6 g/dL (3.5-5.0); ALBUMIN/GLOBULIN RATIO 0.9 (0.8-2.0); ANION GAP 20.3 mmol/L (8-16); CALCIUM 10.1 mg/dL (8.4-10.2); CREATININE, SERUM 7.99 mg/dL (0.72-1.25); POTASSIUM 4.3 mmol/L (3.5-5.1)
--- NOTE | 2019-05-26 05:56 | Consultation ---
DATE OF CONSULTATION: 05/25/2019 REASON FOR CONSULT: Heart block. HISTORY OF PRESENT ILLNESS: This is a 53-year-old gentleman with history of end-stage renal disease on hemodialysis, who presented to the ER. He had a cardiac arrest. He was found to have asystole and episodes of bradycardia with complete heart block. He has a left bundle branch block at baseline. He then received dopamine and multiple pressors with heart rate improved, currently going intermittently into heart block. There is no evidence of ventricular arrhythmias. The patient is currently intubated and sedated in the ICU. REVIEW OF SYSTEMS: Unable to obtain due to the patient is intubated. PAST MEDICAL HISTORY: End-stage renal disease on hemodialysis. PAST SURGICAL HISTORY: Left-sided AV fistula. SOCIAL HISTORY: There is no history of alcohol or smoking. FAMILY HISTORY: There is no history of premature coronary artery disease. No sudden cardiac . PHYSICAL EXAMINATION: VITAL SIGNS: Blood pressure 148/60, pulse 40, respirations 20, and O2 saturation 98%. GENERAL: No acute distress. HEENT: Moist mucous membranes. CARDIOVASCULAR: Regular. RESPIRATORY: Clear. ABDOMEN: Soft and nontender. MUSCULOSKELETAL: 2+ pulses. NEUROLOGIC: No focal deficits. LABORATORY DATA: EKG, sinus rhythm, complete heart block and left bundle branch block, only escape rhythm. IMPRESSION: 1. Complete heart block and status post cardiac arrest due to severe bradycardia and asystole. 2. End-stage renal disease on hemodialysis. 3. Normal ejection fraction. RECOMMENDATIONS: Discussed with the patient's family and wished to proceed. Benefits and risks. Plan for dual chamber pacemaker placement. MD RUBIN Chacon/MODL /[id number]
[2019-05-26] MEDS: SEVELAMER CARBONATE 800 MG TAB PO SCH ×3 (07:51→17:00)
[2019-05-26] MEDS: SODIUM BICARBONATE 650 MG TAB PO SCH ×2 (08:01→17:00)
[2019-05-26] MEDS: FAMOTIDINE 20 MG/2 ML VIAL IV SCH (08:01)
[2019-05-26] MEDS: HEPARIN SOD (PORCINE) 5,000 UNIT/ML VIAL SC SCH ×2 (08:38→20:46)
--- NOTE | 2019-05-26 11:49 | Progress Note ---
DATE: 05/26/2019 Renal Progress Note SUBJECTIVE: Followed for end-stage renal disease. The patient tolerated dialysis yesterday. He is awake, alert, and responsive. Today, the patient is much better in terms of breathing. He is on CPAP trial. Chest x-ray still showing some vascular congestion, however, it significantly improved. No fever, no chills, no nausea, no vomiting, and no abdominal pain at this time. OBJECTIVE: VITAL SIGNS: Have been noted, blood pressure is 130s to 160s/70s, heart rate in the 90s, and 20 respirations. LUNGS: Rales at the bases bilaterally. CARDIOVASCULAR: S1, S2. No rub. ABDOMEN: Soft and nontender. EXTREMITIES: 1+ edema. LABORATORY DATA: Potassium 4.3, BUN is 41, and creatinine 7.99. IMPRESSION AND PLAN: 1. End-stage renal disease. We will do a short dialysis treatment today and then place him back on his regular schedule Saturday, Saturday, and Saturday from tomorrow. The patient likely will get extubated today post dialysis. 2. Hypertension. Continue current medications. 3. Anemia of chronic disease, stable H and H. 4. Hyperkalemia, resolved now. We will continue to monitor closely. MD MIGEL Dhaliwal/ROBER /[id number]
--- NOTE | 2019-05-26 11:50 | NUR ---
PT EXTUBATED IN ROOM, PT PLACED ON 2 L NC
[2019-05-26] MEDS: SODIUM CHLORIDE 0.9% 1000ML 1,000 ML IV SCH (12:00)
--- NOTE | 2019-05-26 12:05 | Progress Note ---
DATE: 05/26/2019 Cardiology progress note. SUBJECTIVE: The patient remains intubated, but awake. He reports his chest is sore. Denies any shortness of breath. Plan for additional ultrafiltration today status post permanent pacemaker yesterday by Dr. Grady. OBJECTIVE: VITAL SIGNS: Temperature 97.9 degrees, pulse 97, respiratory rate 25, blood pressure 150/79, oxygen saturation 100% on mechanical ventilation. GENERAL: Well-developed, well-nourished man, in no acute distress. Remains intubated. LUNGS: Clear to auscultation in anterior lung aranda. No wheezes or crackles. CARDIOVASCULAR: Tachycardic but regular. No murmur. Normal S1, S2. ABDOMEN: Soft and nontender. EXTREMITIES: No edema. CARDIAC MEDICATIONS: None. LABORATORY DATA: WBC 8.95, hemoglobin 10.7, hematocrit 33.4, platelets 130. Sodium 139, potassium 4.3, chloride 99, CO2 of 24, BUN 41, creatinine 7.99. Troponin 16.744. BNP 608. TELEMETRY: Sinus tachycardia. IMPRESSION: 1. Acute respiratory failure, currently intubated. 2. Status post cardiac arrest. 3. Elevated troponin. 4. Sick sinus syndrome status post permanent pacemaker. 5. End-stage renal disease, on hemodialysis. 6. Hypertension. 7. Diabetes mellitus. 8. Peripheral arterial disease. RECOMMENDATIONS: Mechanical ventilation per Pulmonary. Continue supportive care. Further volume removal per Nephrology given need for dialysis. The patient's elevated troponin is likely secondary to cardiac arrest as he had emergent cardiac catheterization done Saturday evening without obstructive coronary artery disease with preserved LVEF at time of catheterization. Appreciate EP assistance for permanent pacemaker placement. Continue to monitor patient on telemetry. Monitor blood pressure. If he becomes more hypertensive, we will start carvedilol. Thank you for this consult. We will continue to follow. Ching Melchor MD ABS/MODL /[id number]
--- NOTE | 2019-05-26 13:11 | NUR ---
ST Note: Order for bedside swallow eval noted. Pt extubated ~ 1100 today, intubated >48 hours. Will defer swallow eval until tomorrow 05/27/19. Spoke with АНДРЕЙ Deras.
--- NOTE | 2019-05-26 15:00 | NUR ---
DIALYSIS STARTED AT THIS TIME
--- NOTE | 2019-05-26 19:30 | NUR ---
page out to Dr. Knutson regarding pain or cough medication
[2019-05-26] MEDS: PROPOFOL IV EMULSION 10MG/ML 100 ML IV SCH (20:00)
--- NOTE | 2019-05-26 20:05 | NUR ---
Dr. Knutson, returned page. New order noted, see eMAR
[2019-05-26] MEDS ORDERED: GUAIFENESIN/CODEINE 10 ML CUP PO PRN (20:15)
--- NOTE | 2019-05-26 21:22 | NUR ---
Pulmonary / CCM Medicine Date of encounter: 05/26/2019 SUBJECTIVE: ventilator on patient received PPM yesterday heart rhythm stable so far given a chance for extubation today AM patient noted with good spontaneous breathing after REVIEW OF SYSTEMS: Cannot get as he is intubated, not speaking. OBJECTIVE: VITAL SIGNS: vital signs reviewed per EMR HEENT: Normocephalic, atraumatic. NECK: Supple. Throat midline. LUNGS: Bilateral air entry, rare rhonchi. CARDIOVASCULAR: S1, S2. No murmurs, rubs, or gallops. ABDOMEN: Soft and nontender. EXTREMITIES: No clubbing. No cyanosis. There is no edema. INTEGUMENT: No rash. No purpura. LABORATORY DATA: 4.3 k, cr 7.99. 9 wbc. 33 hct. plt 130 Chest x-ray with improving pulmonary edema, intubated. IMPRESSION AND PLAN: 1. Acute respiratory failure, intubated/extubated 2. Pulmonary edema. Improving 3. Abnormal chest x-ray, possible pneumonia. 4. Status post cardiac arrest. 5. Critical bradycardia, asystoles + symptomatic junctional rhythm escape 6. End-stage renal disease. 7. Hypertension. 8. Diabetes. 9. Chronic anemia. 10. Peripheral vascular disease, status post toe amputation. 11. Shock, distributive + cardiac. Heart catheterization just done with no obstructive coronary artery disease, LVEF 65%. 12. Encephalopathy, resolved? Dopamine wean off s/p PPM, follow per EPS HD per renal expert exntubated, dc ventilator suppport. Glycemic control consider initiating PO diet today PM per patient progress Thank you very much, Dr. Miranda and Dr. Mcgraw for allowing me a chance to participate in the care of Mr. Braxton Duke. Please call with any questions.
[2019-05-26] MEDS: ACETAMINOPHEN 325 MG TAB PO PRN (21:38)
[2019-05-27] VITALS (26 sets, daily range): BP systolic 92–160; BP diastolic 50–105
[2019-05-27] MEDS: DOXYCYCLINE 100MG/NS 100ML 100 ML IV SCH ×2 (04:14→16:00)
[2019-05-27 04:30] LABS: BASOPHILS % 0.3 % (0.0-1.0); EOSINOPHILS # (AUTO) 0.1 (0.0-0.4); EOSINOPHILS % 0.5 % (0.0-6.0); HEMATOCRIT 33.8 % (38.2-49.6); HEMOGLOBIN 11.1 g/dL (14.0-18.0); LYMPHOCYTES # (AUTO) 1.4 (1.0-3.2); LYMPHOCYTES % 14.7 % (18.0-39.1); MEAN CORPUSCULAR HEMOGLOBIN 33.5 pg (28-32); MEAN CORPUSCULAR HGB CONC 32.8 g/dL (31-35); MEAN CORPUSCULAR VOLUME 102.1 fL (81-99); MONOCYTES # (AUTO) 0.7 (0.2-0.8); MONOCYTES % 7.9 % (4.4-11.3); NEUTROPHILS % 76.2 % (38.7-80.0); PLATELET COUNT 130 x10e3/uL (140-360); RED BLOOD COUNT 3.31 x10e6/uL (4.3-5.7); RED CELL DISTRIBUTION WIDTH 15.7 % (11.7-14.4)
[2019-05-27 04:49] LABS: MAGNESIUM 2.3 MG/DL (1.3-2.1)
[2019-05-27 04:53] LABS: ALBUMIN 3.7 g/dL (3.5-5.0); ALBUMIN/GLOBULIN RATIO 0.9 (0.8-2.0); ANION GAP 22.3 mmol/L (8-16); CALCIUM 10.5 mg/dL (8.4-10.2); CREATININE, SERUM 8.21 mg/dL (0.72-1.25); POTASSIUM 4.3 mmol/L (3.5-5.1)
--- NOTE | 2019-05-27 07:44 | Diagnostic Imaging Report ---
EXAMINATION: CHEST SINGLE (PORTABLE) INDICATION: Cardiac arrest, CHF. COMPARISON: Chest radiograph 05/26/19. FINDINGS: TUBES and LINES: Interval extubation. Left IJ central central venous catheter terminates in the expected location of the left brachiocephalic vein. Right-sided pacemaker with leads in the right atrium and right ventricle. LUNGS: Lungs are well inflated. Persistent bilateral perihilar and interstitial opacities. Patchy opacities of the bilateral lower lungs. PLEURA: No pleural effusion or pneumothorax. HEART AND MEDIASTINUM: Cardiac size is mildly enlarged. BONES AND SOFT TISSUES: No acute osseous abnormality. UPPER ABDOMEN: No free air under the diaphragm. IMPRESSION: Cardiomegaly and persistent pulmonary edema. Superimposed pneumonia is possible in the appropriate clinical setting. Signed by: Dr. Sakshi Kaufman MD on 05/27/2019 7:41 AM
[2019-05-27] MEDS: HEPARIN SOD (PORCINE) 5,000 UNIT/ML VIAL SC SCH ×2 (09:00→20:20)
[2019-05-27] MEDS: FAMOTIDINE 20 MG/2 ML VIAL IV SCH (09:00)
[2019-05-27] MEDS ORDERED: SODIUM CHLORIDE 0.9% 1000ML 2,000 ML IV PRN (09:30)
[2019-05-27] MEDS ORDERED: MANNITOL 25% 12.5GM/50 ML VIAL IV PRN (09:30)
[2019-05-27] MEDS: SODIUM BICARBONATE 650 MG TAB PO SCH ×2 (09:30→17:25)
[2019-05-27] MEDS ORDERED: SODIUM CHLORIDE 0.9% 250ML 250 ML IV PRN (09:30)
[2019-05-27] MEDS ORDERED: ALBUMIN 25% 12.5GM 0.25 GM/ML BTL IV PRN (09:30)
[2019-05-27] MEDS: SEVELAMER CARBONATE 800 MG TAB PO SCH ×3 (09:30→17:25)
[2019-05-27] MEDS: ASPIRIN 81 MG CHEW TAB PO SCH (10:15)
--- NOTE | 2019-05-27 10:55 | Progress Note ---
DATE: 05/27/2019 Renal Progress Note SUBJECTIVE: Followed for end-stage renal disease. Tolerating dialysis Saturday, Saturday, and Saturday, also needed additional treatments for profound fluid overload, pulmonary edema. The patient is much better now. He is extubated. No nausea, no vomiting. Breathing is improved significantly. He is extubated now, in no acute distress. OBJECTIVE: VITAL SIGNS: Blood pressure is 160/75, 94 pulse. Afebrile. LUNGS: Mostly clear to auscultation bilaterally. CARDIOVASCULAR: S1, S2. ABDOMEN: Soft. Positive bowel sounds. EXTREMITIES: No edema. LABORATORY DATA: Labs reviewed for today is 4.3 potassium, BUN is 47, creatinine is 8.2, calcium is 10.5. IMPRESSION AND PLAN: 1. End-stage renal disease. We will continue dialysis today and then Saturday, Saturday, Saturday per his schedule. 2. Hypertension, stable. Continue to monitor closely. Would recommend to discontinue the IV fluids. 3. Anemia of chronic disease, stable. We will continue to monitor closely. MD MIGEL Dhaliwal/MODL /[id number]
[2019-05-27] MEDS ORDERED: DEXTROSE 50% SYRINGE 50 ML IV PRN (11:00)
[2019-05-27] MEDS: GUAIFENESIN/DEXTROMETHORPHAN LIQD 5 ML UDC NG PRN ×2 (11:00→18:44)
[2019-05-27] MEDS: INSULIN LISPRO 100 UNIT/1 ML 3ML VIAL SQ SCH ×3 (11:30→20:44)
--- NOTE | 2019-05-27 16:42 | Progress Note ---
DATE: 05/27/2019 Cardiology Progress Note SUBJECTIVE: The patient was successfully extubated. He was seen during dialysis. He reports his chest is sore from CPR, but denies shortness of breath. OBJECTIVE: VITAL SIGNS: Temperature 99 degrees, pulse 94, respiratory rate 18, blood pressure 160/78, oxygen saturation 100% on 2 L nasal cannula. GENERAL: Well-developed, well-nourished man, in no acute distress. LUNGS: Clear to auscultation in anterior lung aranda. No wheezes or crackles. CARDIOVASCULAR: Normal rate, regular rhythm. No murmur. Normal S1, S2. ABDOMEN: Soft, nontender. EXTREMITIES: No edema. CARDIAC MEDICATIONS: Aspirin 81 mg p.o. daily. LABORATORY DATA: Sodium 140, potassium 4.3, chloride 99, CO2 of 23, BUN 47, creatinine 8.71. BNP 766. Troponin 13.8. WBC 9.17, hemoglobin 11.1, hematocrit 33.8, platelets 130. TELEMETRY: Normal sinus rhythm. IMPRESSION: 1. Acute respiratory failure, now extubated. 2. Status post cardiac arrest. 3. Elevated troponin. 4. Sick sinus syndrome, status post permanent pacemaker. 5. End-stage renal disease, on hemodialysis. 6. Hypertension. 7. Diabetes mellitus. 8. Peripheral arterial disease. RECOMMENDATIONS: The patient has been successfully extubated. Continue supportive care. Volume management per Nephrology given need for dialysis, would likely benefit from continued ultrafiltration, given elevated BNP. Elevated troponins secondary to cardiac arrest as he had emergent cardiac catheterization without obstructive coronary artery disease and preserved LVEF. Appreciate EP assistance for permanent pacemaker placement. Continue to monitor patient on telemetry. Check fasting lipid panel as the patient is now more hypertensive, start low-dose carvedilol. Thank you for this consult. We will continue to follow. Ching Melchor MD ABS/MODL /[id number]
--- NOTE | 2019-05-27 16:56 | NUR ---
Nutrition Screen Note RD Recommendation for Physician: -Continue diet as ordered Plan of Care: RD following, monitoring for tolerance and adequacy Nutrition reason for involvement: Diagnosis Primary Diagnose(s): Cardiac arrest, acute respiratory failure, ESRD, CHF PMH: End-stage renal disease on dialysis for 4 or 5 years at least, uncontrolled diabetes mellitus type 2, and hypertension Ht: 69in Wt: 248lb BMI: 26.6kg/m2 IBW: 160lb +/- 10% RD Assessment: (05/27) Chart reviewed. Labs and meds reviewed. 53yo M, who was admitted for cardiac diet. Pt was extubated yesterday. Pt had HD today. Diet has been advanced to ADA/ renal. Visited pt in the room. Pt reported feeling hungry and eager to eat. No complain of nausea or vomiting. Pt denied any chewing or swallowing difficulty. Pt reported some weight gain recently. Pt was aware of renal diet restriction but not compliant with diet at home. Son stated that the family will be going to HD treatment with patient to speak with dietitian there for diet instruction. Family will be caring for pt once discharged. No other question at this time. Current Diet: ADA 2000/ renal Malnutrition Evaluation (05/27) The patient does not meet criteria for a specified degree of malnutrition at this time. Will re-evaluate at follow-up as appropriate. Diet Education Needs Assessment: Diet education indicated, pt and family would like to follow up with his dietitian at [facility]. Nutrition Care Level: low Signed: Holli Arias, MS, RD, LD
[2019-05-27] MEDS: CARVEDILOL 3.125 MG TAB PO SCH ×2 (17:00→19:15)
[2019-05-27] MEDS: ALBUTEROL/IPRATROPIUM 3 ML NEB NEB SCH ×3 (17:39→23:32)
--- NOTE | 2019-05-27 20:18 | NUR ---
Pulmonary / CCM Medicine Date of encounter: 05/27/2019 SUBJECTIVE: Eats ok Off dopamine 2 L/min by nasal cannula wears sling HD today, ~3.5 L out REVIEW OF SYSTEMS: Cannot get as he is intubated, not speaking. OBJECTIVE: VITAL SIGNS: vital signs reviewed per EMR HEENT: Normocephalic, atraumatic. NECK: Supple. Throat midline. LUNGS: Bilateral air entry, rare rhonchi. CARDIOVASCULAR: S1, S2. No murmurs, rubs, or gallops. ABDOMEN: Soft and nontender. EXTREMITIES: No clubbing. No cyanosis. There is no edema. INTEGUMENT: No rash. No purpura. LABORATORY DATA: k 4.3. cr 8.2. hco3 23. bun 47. 9 wbc, hct 34. plt 130. Chest x-ray with continued pulmonary edema, intubated. IMPRESSION AND PLAN: 1. Acute respiratory failure, intubated/extubated 2. Pulmonary edema. Improving 3. Abnormal chest x-ray, possible pneumonia. 4. Status post cardiac arrest. 5. Critical bradycardia, asystoles + symptomatic junctional rhythm escape 6. End-stage renal disease. 7. Hypertension. 8. Diabetes. 9. Chronic anemia. 10. Peripheral vascular disease, status post toe amputation. 11. Shock, distributive + cardiac. Heart catheterization just done with no obstructive coronary artery disease, LVEF 65%. 12. Encephalopathy, resolved? Dopamine dc PPM care per EPS HD per renal expert Glycemic control PO diet Thank you very much, Dr. Miranda and Dr. Mcgraw for allowing me a chance to participate in the care of Mr. Braxton Duke. Please call with any questions.
[2019-05-27] MEDS: INSULIN GLARGINE 100 UNITS/ML VIAL SQ SCH (20:44)
[2019-05-27] MEDS: CEFEPIME 1GM/NS 0.9% 50 ML 50 ML IV SCH (21:20)
[2019-05-27] MEDS ORDERED: HYDROCODONE/APAP 5MG-325MG TAB ONE (21:48)
[2019-05-27] MEDS: HYDROCODONE/APAP 5MG-325MG TAB PO PRN (21:51)
[2019-05-28] VITALS (24 sets, daily range): BP systolic 86–160; BP diastolic 52–97
[2019-05-28] MEDS: ALBUTEROL/IPRATROPIUM 3 ML NEB NEB SCH ×4 (03:00→14:20)
[2019-05-28] MEDS: DOXYCYCLINE 100MG/NS 100ML 100 ML IV SCH ×2 (04:35→16:00)
[2019-05-28 05:05] LABS: BASOPHILS % 0.4 % (0.0-1.0); EOSINOPHILS # (AUTO) 0.2 (0.0-0.4); HEMATOCRIT 33.5 % (38.2-49.6); HEMOGLOBIN 11.1 g/dL (14.0-18.0); LYMPHOCYTES # (AUTO) 1.4 (1.0-3.2); LYMPHOCYTES % 19.5 % (18.0-39.1); MEAN CORPUSCULAR HEMOGLOBIN 33.2 pg (28-32); MEAN CORPUSCULAR HGB CONC 33.1 g/dL (31-35); MEAN CORPUSCULAR VOLUME 100.3 fL (81-99); MONOCYTES # (AUTO) 0.7 (0.2-0.8); MONOCYTES % 9.1 % (4.4-11.3); NEUTROPHILS # (AUTO) 4.9 (2.1-6.9); NEUTROPHILS % 67.3 % (38.7-80.0); PLATELET COUNT 132 x10e3/uL (140-360); RED BLOOD COUNT 3.34 x10e6/uL (4.3-5.7); RED CELL DISTRIBUTION WIDTH 15.5 % (11.7-14.4)
[2019-05-28 05:21] LABS: ALBUMIN 3.3 g/dL (3.5-5.0); ALBUMIN/GLOBULIN RATIO 0.8 (0.8-2.0); ANION GAP 18.8 mmol/L (8-16); CALCIUM 9.9 mg/dL (8.4-10.2); CREATININE, SERUM 7.04 mg/dL (0.72-1.25); POTASSIUM 3.8 mmol/L (3.5-5.1)
[2019-05-28 06:00] LABS: CHOL/HDL RATIO 4.1 (3.9-4.7)
[2019-05-28] MEDS: GUAIFENESIN/DEXTROMETHORPHAN LIQD 5 ML UDC NG PRN ×2 (06:41→09:30)
[2019-05-28] MEDS: INSULIN LISPRO 100 UNIT/1 ML 3ML VIAL SQ SCH ×4 (07:30→20:45)
[2019-05-28] MEDS: SEVELAMER CARBONATE 800 MG TAB PO SCH ×3 (08:00→17:46)
[2019-05-28] MEDS: ACETAMINOPHEN 325 MG TAB PO PRN ×2 (08:34→20:50)
[2019-05-28] MEDS: HEPARIN SOD (PORCINE) 5,000 UNIT/ML VIAL SC SCH ×2 (09:00→20:45)
[2019-05-28] MEDS: CARVEDILOL 3.125 MG TAB PO SCH ×2 (09:00→17:46)
[2019-05-28] MEDS: ASPIRIN 81 MG CHEW TAB PO SCH (09:00)
[2019-05-28] MEDS: SODIUM BICARBONATE 650 MG TAB PO SCH ×2 (09:00→17:46)
[2019-05-28] MEDS: FAMOTIDINE 20 MG/2 ML VIAL IV SCH (09:00)
--- NOTE | 2019-05-28 17:03 | Progress Note ---
DATE: 05/28/2019 Cardiology Progress Note SUBJECTIVE: The patient denies chest pain or shortness of breath. OBJECTIVE: VITAL SIGNS: Temperature 97.7 degrees, pulse 93, respiratory rate 18, blood pressure 98/76, oxygen saturation 100% on 2 L nasal cannula. GENERAL: Awake, alert, in no acute distress. LUNGS: Clear to auscultation bilaterally. No wheezes or crackles. CARDIOVASCULAR: Normal rate, regular rhythm. No murmur. Normal S1, S2. ABDOMEN: Soft, nontender. EXTREMITIES: No edema. CARDIAC MEDICATIONS: Carvedilol 3.125 mg p.o. b.i.d., aspirin 81 mg p.o. daily. LABORATORY DATA: WBC 7.28, hemoglobin 11.1, hematocrit 33.5, platelets 132. Sodium 138, potassium 3.8, chloride 97, CO2 of 26, BUN 37, creatinine 7.04. Cholesterol 153, triglycerides 241, LDL 68, HDL 37. TELEMETRY: Normal sinus rhythm. IMPRESSION: 1. Acute respiratory failure, now extubated. 2. Status post cardiac arrest. 3. Elevated troponin secondary to cardiac arrest. 4. Sick sinus syndrome status post permanent pacemaker. 5. End-stage renal disease, on hemodialysis. 6. Hypertension. 7. Diabetes mellitus. 8. Peripheral arterial disease. RECOMMENDATIONS: Continue supportive care. Volume management per Nephrology given need for dialysis, likely benefit from continued ultrafiltration. Elevated troponin secondary to cardiac arrest as he had emergent cardiac catheterization without obstructive coronary artery disease and preserved LVEF. Appreciate EP systems for permanent pacemaker. Monitor patient closely on telemetry. Continue low-dose carvedilol. The patient's LDL is at goal. Continue aspirin. Thank you for this consult. We will continue to follow. Ching Melchor MD ABS/MODL /[id number]
[2019-05-28] MEDS: HYDROCODONE/APAP 5MG-325MG TAB PO PRN (17:30)
[2019-05-28] MEDS: ALBUTEROL/IPRATROPIUM 3 ML NEB NEB PRN ×2 (19:10→23:15)
--- NOTE | 2019-05-28 20:21 | Diagnostic Imaging Report ---
EXAMINATION: CHEST 2 VIEWS INDICATION: ^CHF and pneumonia ^[id number] ^1931 ^Y COMPARISON: Chest radiograph 05/27/2019 5:52 AM FINDINGS: PA and lateral views TUBES and LINES: Stable left IJ central venous catheter with tip overlying either the brachiocephalic vein or a persistent left SVC, unchanged. 2-lead pacemaker device overlying the right upper chest with leads overlying the right atrial appendage and right ventricle, stable. There are 2 packing material overlying the right shoulder. LUNGS: Lungs are well inflated. Resolved pulmonary edema. Bibasilar atelectasis. PLEURA: No pleural effusion or pneumothorax. HEART AND MEDIASTINUM: Stable moderate enlargement of the cardiac silhouette. BONES AND SOFT TISSUES: No acute osseous lesion. Soft tissues are unremarkable. UPPER ABDOMEN: No free air under the diaphragm. IMPRESSION: Interval resolution of the bilateral pulmonary edema. No consolidation to suggest pneumonia. Signed by: Dr. Catrachita Burnette M.D. on 05/28/2019 8:18 PM
[2019-05-28] MEDS: INSULIN GLARGINE 100 UNITS/ML VIAL SQ SCH (20:46)
--- NOTE | 2019-05-28 21:43 | NUR ---
Pulmonary / CCM Medicine Date of encounter: 05/28/2019 SUBJECTIVE: 97% saturation RA fio2 walked, no dizziness eating REVIEW OF SYSTEMS: no headaches, no bleed OBJECTIVE: VITAL SIGNS: vital signs reviewed per EMR HEENT: Normocephalic, atraumatic. NECK: Supple. Throat midline. LUNGS: Bilateral air entry, rare rhonchi. CARDIOVASCULAR: S1, S2. No murmurs, rubs, or gallops. ABDOMEN: Soft and nontender. EXTREMITIES: No clubbing. No cyanosis. There is no edema. INTEGUMENT: No rash. No purpura. LABORATORY DATA: 3.8 k, cr 7.0 wbc 7.3, pl t 132 Chest x-ray with continued pulmonary edema, intubated. IMPRESSION AND PLAN: 1. Acute respiratory failure, intubated/extubated 2. Pulmonary edema. Improving 3. Abnormal chest x-ray, possible pneumonia. 4. Status post cardiac arrest. 5. Critical bradycardia, asystoles + symptomatic junctional rhythm escape 6. End-stage renal disease. 7. Hypertension. 8. Diabetes. 9. Chronic anemia. 10. Peripheral vascular disease, status post toe amputation. 11. Shock, distributive + cardiac. Resolved. Heart catheterization just done with no obstructive coronary artery disease, LVEF 65%. 12. Encephalopathy, resolved PPM care per EPS, sling mobilize PT follow up HD per renal expert Glycemic control PO diet de-escalate meds Thank you very much, Dr. Miranda and Dr. Mcgraw for allowing me a chance to participate in the care of Mr. Braxton Duke. Please call with any questions.
[2019-05-29] VITALS (7 sets, daily range): BP systolic 106–147; BP diastolic 51–85
[2019-05-29] MEDS: DOXYCYCLINE 100MG/NS 100ML 100 ML IV SCH ×2 (03:39→17:04)
[2019-05-29 04:57] LABS: BASOPHILS % 0.2 % (0.0-1.0); EOSINOPHILS # (AUTO) 0.2 (0.0-0.4); EOSINOPHILS % 1.6 % (0.0-6.0); HEMATOCRIT 34.1 % (38.2-49.6); HEMOGLOBIN 11.3 g/dL (14.0-18.0); LYMPHOCYTES % 9.6 % (18.0-39.1); MEAN CORPUSCULAR HGB CONC 33.1 g/dL (31-35); MEAN CORPUSCULAR VOLUME 99.7 fL (81-99); MONOCYTES % 8.8 % (4.4-11.3); NEUTROPHILS # (AUTO) 8.6 (2.1-6.9); NEUTROPHILS % 79.2 % (38.7-80.0); PLATELET COUNT 151 x10e3/uL (140-360); RED BLOOD COUNT 3.42 x10e6/uL (4.3-5.7); RED CELL DISTRIBUTION WIDTH 15.2 % (11.7-14.4)
[2019-05-29 05:21] LABS: ALBUMIN 3.5 g/dL (3.5-5.0); ALBUMIN/GLOBULIN RATIO 0.8 (0.8-2.0); ANION GAP 22.2 mmol/L (8-16); CALCIUM 10.2 mg/dL (8.4-10.2); CREATININE, SERUM 9.32 mg/dL (0.72-1.25); POTASSIUM 4.2 mmol/L (3.5-5.1)
--- NOTE | 2019-05-29 07:10 | NUR ---
Pt received resting in bed during walking rounds. Alert and oriented x4 with left forearm AV fistula, pt is for HD. Oriented to staff and surroundings. Encouraged to press call jeffries if help needed. Pt verbalized understanding of teaching. Emotional support given. Call jeffries within reach. Will monitor
[2019-05-29] MEDS: CARVEDILOL 3.125 MG TAB PO SCH ×2 (09:00→17:04)
[2019-05-29] MEDS: ASPIRIN 81 MG CHEW TAB PO SCH (09:25)
[2019-05-29] MEDS: FAMOTIDINE 20 MG/2 ML VIAL IV SCH (09:25)
[2019-05-29] MEDS: ACETAMINOPHEN 325 MG TAB PO PRN ×2 (09:25→17:00)
[2019-05-29] MEDS: SEVELAMER CARBONATE 800 MG TAB PO SCH ×3 (09:25→17:04)
--- NOTE | 2019-05-29 09:25 | NUR ---
Pt given all meds as ordered. Dialysis nurse at bedside to begin treatment. Will monitor
[2019-05-29] MEDS: SODIUM BICARBONATE 650 MG TAB PO SCH ×2 (09:26→17:04)
[2019-05-29] MEDS: INSULIN LISPRO 100 UNIT/1 ML 3ML VIAL SQ SCH ×6 (09:26→21:03)
[2019-05-29] MEDS: HEPARIN SOD (PORCINE) 5,000 UNIT/ML VIAL SC SCH ×2 (09:27→20:44)
--- NOTE | 2019-05-29 11:59 | NUR ---
EDUCATED ABOUT IMM, SIGNED, FILED IN CHART, WITH COPY LEFT WITH FAMILY AT BEDSIDE.
[2019-05-29] MEDS: GUAIFENESIN/DEXTROMETHORPHAN LIQD 5 ML UDC NG PRN ×2 (12:03→22:03)
--- NOTE | 2019-05-29 13:09 | NUR ---
Pulmonary / CCM Medicine Date of encounter: 05/29/2019 SUBJECTIVE: HD tolerated well, 2 L out eating well BM walked REVIEW OF SYSTEMS: no headaches, no bleed OBJECTIVE: VITAL SIGNS: vital signs reviewed per EMR HEENT: Normocephalic, atraumatic. NECK: Supple. Throat midline. LUNGS: Bilateral air entry, rare rhonchi. CARDIOVASCULAR: S1, S2. No murmurs, rubs, or gallops. ABDOMEN: Soft and nontender. EXTREMITIES: No clubbing. No cyanosis. There is no edema. INTEGUMENT: No rash. No purpura. LABORATORY DATA: per EMR Chest x-ray with resolving edema yesterday IMPRESSION AND PLAN: 1. Acute respiratory failure, intubated/extubated 2. Pulmonary edema. Improving 3. Abnormal chest x-ray, possible pneumonia. 4. Status post cardiac arrest. 5. Critical bradycardia, asystoles + symptomatic junctional rhythm escape 6. End-stage renal disease. 7. Hypertension. 8. Diabetes. 9. Chronic anemia. 10. Peripheral vascular disease, status post toe amputation. 11. Shock, distributive + cardiac. Resolved. Heart catheterization just done with no obstructive coronary artery disease, LVEF 65%. 12. Encephalopathy, resolved PPM care per EPS, sling mobilize PT follow up HD per renal expert Glycemic control, started long acting insulin ~ 32 hrs ago PO diet Thank you very much, Dr. Miranda and Dr. Mcgraw for allowing me a chance to participate in the care of Mr. Braxton Duke. Please call with any questions.
--- NOTE | 2019-05-29 13:40 | NUR ---
Hemodialysis completed. 2L fluid pulled. Vitals stable. Will monitor
--- NOTE | 2019-05-29 16:38 | Progress Note ---
DATE: 05/29/2019 Internal Medicine Progress Note SUBJECTIVE: The patient complained of chest pain after he had a CPR when he had a cardiac arrest almost a week ago. Otherwise, no other significant complaint. PHYSICAL EXAMINATION: VITAL SIGNS: Blood pressure 106/51, temperature 99.2, heart rate 92 per minute, respiratory rate 17 per minute, and O2 saturation 97%. HEART: Showed regular rhythm. Normal S1, S2 sound. LUNGS: Clear bilaterally. ABDOMEN: Soft. LABORATORY DATA: On the BMP; sodium 137, potassium 4.2, chloride 95, CO2 24, BUN 59, creatinine 9.32, glucose 179. On the CBC; white blood count 10.8, hemoglobin 11.3, hematocrit 34.1, platelet count 161,000. PT 14.3, INR 1.06, PTT 27.1. AST 23, ALT 20, total bilirubin 1.0, alkaline phosphatase 94. FINAL IMPRESSION: 1. Status post cardiac arrest. 2. Acute respiratory failure, which has resolved. 3. Hyperkalemia, which has resolved. 4. End-stage renal disease, on dialysis. 5. Uncontrolled diabetes mellitus type 2 with end-stage renal disease. 6. Hypertension, which has resolved. 7. Anemia of chronic disease. 8. Chronic systolic congestive heart failure. PLAN OF TREATMENT: 1. Continue current medication regimen. 2. Continue physical and occupational therapy. 3. Pain control for costochondral pain. 4. Continue albuterol and Atrovent q.4 hours. 5. Doxycycline 100 mg IV twice a day. 6. Cefepime 1 g IV Saturday, Saturday, and Saturday. 7. Continue with heparin 5000 units subcutaneous twice a day for DVT prophylaxis. 8. Guaifenesin 10 mL q.4 hours as needed for cough. 9. Continue [place] 1 tablet q.4 hours as needed for severe pain. 10. Sevelamer 4000 mg three times a day. 11. Continue Lantus 28 units at bedtime subcutaneously. 12. Continue hydralazine 10 mg IV q.82 hours as needed for hypertension. 13. Continue sodium bicarbonate 650 mg twice a day. 14. Continue to monitor blood sugar before meals and at bedtime. 15. Continue Pepcid 20 mg daily. 16. Tylenol 650 mg q.6 hours as needed. 17. Aspirin 81 mg daily. 18. Carvedilol 3.125 mg twice a day. Dr. Hamlin will be here tomorrow to continue seeing the patient. MD CUBA Johansen/ROBER /[id number]
--- NOTE | 2019-05-29 17:19 | Progress Note ---
DATE: 05/29/2019 Cardiology Progress Note SUBJECTIVE: The patient reports that chest is sore from his prior CPR. He denies any shortness of breath. He was seen during hemodialysis. OBJECTIVE: VITAL SIGNS: Temperature 100.4 degrees, pulse 103, respiratory rate 19, blood pressure 131/81, and oxygen saturation 99% on 2 L nasal cannula. GENERAL: Awake and alert, in no acute distress. LUNGS: Clear to auscultation bilaterally. No wheezes or crackles. CARDIOVASCULAR: Normal rate. Regular rhythm. No murmur. Normal S1, S2. ABDOMEN: Soft, nontender. EXTREMITIES: No edema. CARDIAC MEDICATIONS: Aspirin 81 mg p.o. daily and carvedilol 3.125 mg p.o. b.i.d. LABORATORY DATA: WBC 10.86, hemoglobin 11.3, hematocrit 34.1, and platelets 151. Sodium 137, potassium 4.2, chloride 95, CO2 of 24, BUN 59, and creatinine 9.32. Chest x-ray interval resolution of bilateral pulmonary edema. No consolidation to suggest pneumonia. Telemetry, normal sinus rhythm. IMPRESSION: 1. Acute respiratory failure, now extubated. 2. Status post cardiac arrest. 3. Elevated troponin secondary to cardiac arrest. 4. Sick sinus syndrome status post permanent pacemaker. 5. End-stage renal disease, on hemodialysis. 6. Hypertension. 7. Diabetes mellitus. 8. Peripheral arterial disease. RECOMMENDATIONS: Continue supportive care. Volume management per Nephrology given need for dialysis. Elevated troponin secondary to cardiac arrest as he had emergent cardiac catheterization without obstructive coronary artery disease and preserved LVEF. Appreciate EP assistance for permanent pacemaker. Monitor patient closely on telemetry while admitted. Continue low-dose carvedilol. LDL is at goal. Continue aspirin. Thank you for this consult. We will continue to follow. Ching Melchor MD ABS/MODL /[id number]
--- NOTE | 2019-05-29 18:10 | NUR ---
Temp 101.9. Dr. Mcgraw called. Blood cultures ordered. Dr. Melvin consulted. Will monitor Addendum: 05/29/19 at 1812 by Lb Cano RN Tylenol 650mg PO given
--- NOTE | 2019-05-29 18:21 | NUR ---
Dr. Melvin paged regarding consult
[2019-05-29] MEDS: CEFEPIME 1GM/NS 0.9% 50 ML 50 ML IV SCH (20:53)
[2019-05-29] MEDS: INSULIN GLARGINE 100 UNITS/ML VIAL SQ SCH (21:02)
[2019-05-30] VITALS (8 sets, daily range): BP systolic 90–133; BP diastolic 44–66
[2019-05-30] MEDS: DOXYCYCLINE 100MG/NS 100ML 100 ML IV SCH (03:59)
[2019-05-30 05:05] LABS: BASOPHILS % 0.1 % (0.0-1.0); EOSINOPHILS # (AUTO) 0.1 (0.0-0.4); EOSINOPHILS % 0.6 % (0.0-6.0); HEMOGLOBIN 10.4 g/dL (14.0-18.0); LYMPHOCYTES # (AUTO) 1.4 (1.0-3.2); LYMPHOCYTES % 10.3 % (18.0-39.1); MEAN CORPUSCULAR HEMOGLOBIN 33.7 pg (28-32); MEAN CORPUSCULAR HGB CONC 33.5 g/dL (31-35); MEAN CORPUSCULAR VOLUME 100.3 fL (81-99); MONOCYTES # (AUTO) 1.4 (0.2-0.8); MONOCYTES % 10.3 % (4.4-11.3); NEUTROPHILS # (AUTO) 10.7 (2.1-6.9); NEUTROPHILS % 78.4 % (38.7-80.0); PLATELET COUNT 144 x10e3/uL (140-360); RED BLOOD COUNT 3.09 x10e6/uL (4.3-5.7); RED CELL DISTRIBUTION WIDTH 15.3 % (11.7-14.4)
--- NOTE | 2019-05-30 07:00 | NUR ---
Pt received resting in bed. Walking rounds done with outgoing nurse. Will monitor
[2019-05-30] MEDS: SEVELAMER CARBONATE 800 MG TAB PO SCH ×3 (08:00→16:55)
[2019-05-30] MEDS: ASPIRIN 81 MG CHEW TAB PO SCH (08:12)
[2019-05-30] MEDS: SODIUM BICARBONATE 650 MG TAB PO SCH ×2 (08:13→16:55)
[2019-05-30] MEDS: CARVEDILOL 3.125 MG TAB PO SCH ×2 (08:13→16:21)
[2019-05-30] MEDS: INSULIN LISPRO 100 UNIT/1 ML 3ML VIAL SQ SCH ×8 (08:14→20:12)
--- NOTE | 2019-05-30 08:14 | NUR ---
Pt took home Renvela. Educated to refrain from taking home meds. Emotional support given. Will monitor
[2019-05-30] MEDS: HEPARIN SOD (PORCINE) 5,000 UNIT/ML VIAL SC SCH ×2 (08:15→20:11)
--- NOTE | 2019-05-30 09:00 | NUR ---
Linens changed. Pt took a bath last night. Will monitor
[2019-05-30] MEDS: GUAIFENESIN/DEXTROMETHORPHAN LIQD 5 ML UDC NG PRN ×3 (12:15→21:09)
[2019-05-30] MEDS: HYDROCODONE/APAP 7.5MG-325MG 1 EA TAB PO PRN (12:48)
[2019-05-30] MEDS: CEPACOL SORE THROAT LOZENGES PO PRN (13:24)
--- NOTE | 2019-05-30 15:11 | NUR ---
Pulmonary / CCM Medicine Date of encounter: 05/30/2019 SUBJECTIVE: eats well BM walked min dizziness REVIEW OF SYSTEMS: no headaches, no bleed OBJECTIVE: VITAL SIGNS: vital signs reviewed per EMR HEENT: Normocephalic, atraumatic. NECK: Supple. Throat midline. LUNGS: Bilateral air entry, rare rhonchi. CARDIOVASCULAR: S1, S2. No murmurs, rubs, or gallops. ABDOMEN: Soft and nontender. EXTREMITIES: No clubbing. No cyanosis. There is no edema. INTEGUMENT: No rash. No purpura. LABORATORY DATA: per EMR Chest x-ray with resolving edema yesterday IMPRESSION AND PLAN: 1. Acute respiratory failure, intubated/extubated 2. Pulmonary edema. Improving 3. Abnormal chest x-ray, possible pneumonia. 4. Status post cardiac arrest. 5. Critical bradycardia, asystoles + symptomatic junctional rhythm escape 6. End-stage renal disease. 7. Hypertension. 8. Diabetes. 9. Chronic anemia. 10. Peripheral vascular disease, s/p toe amputation. 11. Shock, distributive + cardiac. Resolved. Heart catheterization with no obstructive coronary artery disease, LVEF 65%. 12. Encephalopathy, resolved PPM care per EPS, clark mobilize PT follow up HD per renal expert Glycemic control PO diet Thank you very much, Dr. Miranda and Dr. Mcgraw for allowing me a chance to participate in the care of Mr. Braxton Duke. Please call with any questions.
[2019-05-30] MEDS: CHOLESTYRAMINE 4 GM PACKET PO PRN (16:55)
--- NOTE | 2019-05-30 17:40 | Progress Note ---
DATE: 05/30/2019 Cardiology Progress Note SUBJECTIVE: The patient is feeling better. Reports some musculoskeletal chest pain. OBJECTIVE: VITAL SIGNS: Temperature is 98.9, heart rate is 81, respirations are 15, blood pressure is 103/49 and ox saturation 95% on 2 L nasal cannula. GENERAL: Well appearing, no apparent distress. CARDIOVASCULAR: Regular rate and rhythm. LUNGS: Clear to auscultation. ABDOMEN: Soft, nontender, and nondistended. EXTREMITIES: No edema. CARDIOVASCULAR MEDICATIONS: Reviewed. Telemetry monitoring revealed normal sinus rhythm with PACs. LABORATORY DATA: Reviewed. IMPRESSION: 1. Acute respiratory failure, resolved. 2. Status post cardiac arrest. 3. Elevated troponin secondary to cardiac arrest. 4. Sick sinus syndrome, status post pacemaker. 5. End-stage renal disease. 6. Hypertension. 7. Hyperlipidemia. 8. Diabetes mellitus. 9. Peripheral artery disease. RECOMMENDATIONS: Continue current cardiovascular medications. Cardiac catheterization after the cardiac arrest revealed no obstructive coronary artery disease with preserved left ventricular ejection fraction. He is now status post pacemaker for sick sinus syndrome. Continue to monitor on telemetry. DO CHRIS Mckee/MODL /[id number]
[2019-05-30] MEDS: INSULIN GLARGINE 100 UNITS/ML VIAL SQ SCH (20:12)
--- NOTE | 2019-05-30 22:26 | Consultation ---
DATE OF CONSULTATION: 05/30/2019 REASON FOR CONSULTATION: Fever. HISTORY OF PRESENT ILLNESS: This patient who is a very pleasant 53-year-old with history of obesity, history of end-stage renal disease, on hemodialysis. The patient comes in on May 25 to [facility] with shortness of breath. The patient came to the emergency room with shortness of breath. Apparently, he was intubated. He had an arrest. He had arrhythmia, possibly bradycardia, possibly junctional rhythm. The patient's chest x-ray showed pulmonary edema. He had dialysis 3 hours, 2 L were removed. The patient started antibiotic. He is currently alert and oriented. He has been here since then. He has been seen by Pulmonary. He has been seen by Critical Care. The patient was admitted in the hospital. He is currently alert and oriented. He has no complaints whatsoever, but he is telling me he has been having diarrhea for a while on and off and his renal doctor told him this has to do with his dialysis, but I was asked to see him for a fever. He is telling me he did not feel the fever when it took place yesterday. PAST MEDICAL HISTORY: Obesity, diabetes mellitus, hypertension, end-stage disease on hemodialysis, chronic anemia, peripheral vascular disease, status post toe amputation, obstructive sleep apnea, coronary artery disease. PAST SURGICAL HISTORY: Amputation of the toe, IV access for dialysis. ALLERGIES: NKA. SOCIAL HISTORY: There is no smoking, drug abuse, or alcohol abuse. FAMILY HISTORY: Hypertension. REVIEW OF SYSTEMS: HEENT: Negative. PULMONARY: Negative. CARDIAC: Negative. : Negative. GI: Negative. SKIN: There are no other rashes. JOINTS: Negative. LABORATORY DATA: Reviewed. Blood cultures negative for 3 days. His white count when he first came was 8.9, it went up to 13.4, hemoglobin 10.4. Sodium 137, potassium 4.2, calcium of 6.3. PHYSICAL EXAMINATION: GENERAL: He is currently alert, oriented, does not seem to be in acute distress. VITAL SIGNS: He is running the low temperature now at 100.0, yesterday it was 100.4, had no fevers before that. Vital signs stable. HEENT: Normocephalic, not icteric. NECK: Supple. No JVD. No lymphadenopathy. No thyromegaly. CHEST: Clear bilateral. HEART: S1, S2. No S3, S4, or murmur. ABDOMEN: Soft. Bowel sounds present. No tenderness. EXTREMITIES: No edema. SKIN: No rash. IMPRESSION: Low fever. Clinically seems to be stable. Has no evidence of infection at present time. I would recommend to discontinue antibiotic. Observe the patient clinically. It could be drug fever versus others. Discussed with the patient. Discussed with the medical team. We will reassess in the morning. Laboratory data reviewed. Chart reviewed again. MD PRATIK Mello/ROBER /[id number]
[2019-05-31] VITALS (7 sets, daily range): BP systolic 98–142; BP diastolic 52–86
[2019-05-31] MEDS: HYDROCODONE/APAP 7.5MG-325MG 1 EA TAB PO PRN ×4 (00:52→21:32)
--- NOTE | 2019-05-31 07:00 | NUR ---
Pt received resting in recliner during shift change. at bedside. Call jeffries within reach. Will monitor
[2019-05-31] MEDS: INSULIN LISPRO 100 UNIT/1 ML 3ML VIAL SQ SCH ×8 (07:30→21:23)
[2019-05-31] MEDS: SODIUM BICARBONATE 650 MG TAB PO SCH ×2 (07:58→15:49)
[2019-05-31] MEDS: SEVELAMER CARBONATE 800 MG TAB PO SCH ×3 (07:58→16:49)
[2019-05-31] MEDS: HEPARIN SOD (PORCINE) 5,000 UNIT/ML VIAL SC SCH ×2 (07:58→21:24)
[2019-05-31] MEDS: ASPIRIN 81 MG CHEW TAB PO SCH (07:58)
[2019-05-31] MEDS: CARVEDILOL 3.125 MG TAB PO SCH ×2 (07:58→15:49)
[2019-05-31] MEDS: GUAIFENESIN/DEXTROMETHORPHAN LIQD 5 ML UDC NG PRN ×2 (07:59→15:49)
[2019-05-31] MEDS: CEPACOL SORE THROAT LOZENGES PO PRN (07:59)
--- NOTE | 2019-05-31 08:00 | NUR ---
All meds given as ordered. Call jeffries within reach. at bedside. Will monitor
--- NOTE | 2019-05-31 12:32 | Progress Note ---
DATE: 05/31/2019 Cardiology Progress Note SUBJECTIVE: The patient is feeling better. Denies any chest pain or shortness of breath. Some musculoskeletal pain with movement. OBJECTIVE: VITAL SIGNS: Temperature 96.5, heart rate 78, respirations are 19, blood pressure is 142/72, ox saturation 100% on 2 L nasal cannula. GENERAL: Well appearing, well built, in no apparent distress. CARDIOVASCULAR: Regular rate and rhythm. LUNGS: Clear to auscultation. ABDOMEN: Soft, nontender, nondistended. EXTREMITIES: Trace edema. LABORATORY DATA: Reviewed. Hemoglobin 10.4. CARDIOVASCULAR MEDICATIONS: Reviewed. Telemetry monitoring revealed normal sinus rhythm. IMPRESSION: 1. Cardiac arrest. 2. Elevated troponin secondary to cardiac arrest. 3. Sick sinus syndrome, status post pacemaker. 4. End-stage renal disease. 5. Hypertension. 6. Hyperlipidemia. 7. Diabetes mellitus. 8. Peripheral artery disease. RECOMMENDATIONS: The patient is stable from a cardiovascular standpoint. Continue current cardiovascular medications. Cardiac catheterization after his cardiac arrest revealed no obstructive coronary artery disease with preserved left ventricular ejection fraction. He is now status post pacemaker for his sick sinus syndrome. The patient may be discharged from a cardiovascular standpoint with outpatient followup. DO CHRIS Mckee/MODL /[id number]
[2019-05-31] MEDS: CHOLESTYRAMINE 4 GM PACKET PO PRN (15:50)
--- NOTE | 2019-05-31 16:17 | NUR ---
Pulmonary / CCM Medicine Date of encounter: 05/31/2019 SUBJECTIVE: fever low level cultures unremarkable so far new pacer in place, arm slinged REVIEW OF SYSTEMS: no headaches, no bleed OBJECTIVE: VITAL SIGNS: vital signs reviewed per EMR HEENT: Normocephalic, atraumatic. NECK: Supple. Throat midline. LUNGS: Bilateral air entry, rare rhonchi. CARDIOVASCULAR: S1, S2. No murmurs, rubs, or gallops. ABDOMEN: Soft and nontender. EXTREMITIES: No clubbing. No cyanosis. There is no edema. INTEGUMENT: No rash. No purpura. LABORATORY DATA: k 4.2, cr 9.3 IMPRESSION AND PLAN: 1. Acute respiratory failure, intubated/extubated 2. Pulmonary edema. Improving 3. Abnormal chest x-ray, possible pneumonia. 4. Status post cardiac arrest. 5. Critical bradycardia, asystoles + symptomatic junctional rhythm escape 6. End-stage renal disease. 7. Hypertension. 8. Diabetes. 9. Chronic anemia. 10. Peripheral vascular disease, s/p toe amputation. 11. Shock, distributive + cardiac. Resolved. Heart catheterization with no obstructive coronary artery disease, LVEF 65%. 12. Encephalopathy, resolved PPM care per EPS, sling mobilize PT follow up HD per renal expert Glycemic control PO diet Follow fevers closely, especially in the setting of the new pacer Check AM CXR Thank you very much, Dr. Miranda and Dr. Mcgraw for allowing me a chance to participate in the care of Mr. Braxton Duke. Please call with any questions.
--- NOTE | 2019-05-31 17:39 | Progress Note ---
DATE: 05/31/2019 SUBJECTIVE: Mr. Duke is doing well today, has no complaints, looking forward to go home. REVIEW OF SYSTEMS: HEENT: Negative. PULMONARY: Negative. CARDIAC: Negative. : Negative. All within normal limit. PHYSICAL EXAMINATION: GENERAL: He is currently alert, oriented, does not seem to be in acute distress. VITAL SIGNS: Stable, afebrile. HEENT: Normocephalic, not icteric. NECK: Supple. CHEST: Clear. HEART: S1, S2. No murmur. ABDOMEN: Soft and obese. No tenderness. No hepatosplenomegaly. EXTREMITIES: No edema. SKIN: No rash. His physical examination is currently alert and oriented. There is no more fever since 8 a.m. LABORATORY DATA: His cultures are remaining negative. His white count is 13.64, hemoglobin of 10. His platelet 144, and there is no left shift. IMPRESSION: 1. Low fever. Clinically stable, off antibiotic, probably due to antibiotic since I started antibiotic there is no more fever. 2. End-stage renal disease. 3. Obesity. 4. Diabetes mellitus. 5. Hypertension. 6. Peripheral vascular disease. From Infectious Disease point of view, the patient seemed to be doing well and stable. Discharge planning per Internal Medicine and other. MD PRATIK Mello/MODL /[id number]
[2019-05-31] MEDS: INSULIN GLARGINE 100 UNITS/ML VIAL SQ SCH (21:24)
--- NOTE | 2019-05-31 21:40 | NUR ---
dialysis called and confirmed that patient will have dialysis tomorrow. Spoke with Ray.
--- NOTE | 2019-05-31 22:47 | NUR ---
patient got sweaty and lethargic, blood sugar was checked it was 50 at this time. Dextrose 50% given, will continue to monitor.
--- NOTE | 2019-05-31 23:08 | NUR ---
re checked blood sugar again, its 186 this time.
[2019-06-01 00:11] VITALS: BP 85/60
[2019-06-01 04:13] VITALS: BP 130/106
--- NOTE | 2019-06-01 07:21 | NUR ---
reports given to upcoming nurse.
[2019-06-01] MEDS: INSULIN LISPRO 100 UNIT/1 ML 3ML VIAL SQ SCH ×4 (07:30→11:25)
[2019-06-01 07:34] VITALS: BP 139/84
[2019-06-01 07:35] VITALS: BP 139/84
[2019-06-01] MEDS: CARVEDILOL 3.125 MG TAB PO SCH (08:31)
--- NOTE | 2019-06-01 08:32 | NUR ---
PT BEGINNING DIALYSIS
[2019-06-01] MEDS: SODIUM BICARBONATE 650 MG TAB PO SCH (08:48)
[2019-06-01] MEDS: SEVELAMER CARBONATE 800 MG TAB PO SCH ×2 (08:48→11:25)
[2019-06-01] MEDS: ASPIRIN 81 MG CHEW TAB PO SCH (08:48)
--- NOTE | 2019-06-01 08:50 | Diagnostic Imaging Report ---
EXAMINATION: CHEST SINGLE (PORTABLE) INDICATION: Shortness of breath COMPARISON: Multiple prior chest radiographs, most recently of 05/28/2019 FINDINGS: LINES/TUBES:Left IJ central venous catheter terminates in the left innominate vein. EKG leads overlie the chest. Right chest pacemaker device with leads terminating in the right atrium and right ventricle. LUNGS:The lungs are well-inflated. No focal consolidation or manish edema. PLEURA: No pleural effusion or pneumothorax. MEDIASTINUM:Cardiomediastinal silhouette is stably enlarged. BONES/SOFT TISSUES:No acute osseous injury. ABDOMEN:No free air under the diaphragm. IMPRESSION: No focal pneumonia or pulmonary edema. Signed by: Jay Jay Ferrell MD on 06/01/2019 8:47 AM
[2019-06-01] MEDS: ACETAMINOPHEN 325 MG TAB PO PRN (10:56)
[2019-06-01 11:24] VITALS: BP 122/62
[2019-06-01] MEDS: CHOLESTYRAMINE 4 GM PACKET PO PRN (13:03)
[2019-06-01 15:52] VITALS: BP 117/63
--- NOTE | 2019-06-01 15:53 | NUR ---
reviewed dc instructions with pt and family, verbalized understanding. stable
--- NOTE | 2019-06-01 22:49 | NUR ---
Pulmonary / CCM Medicine Date of encounter: 06/01/2019 SUBJECTIVE: patient with low normal blood pressure during Blood pressure with goal of 3-4 L< chest x-ray NEARLY RESOLVED Room air FiO2 REVIEW OF SYSTEMS: no headaches, no bleed OBJECTIVE: VITAL SIGNS: vital signs reviewed per EMR HEENT: Normocephalic, atraumatic. NECK: Supple. Throat midline. LUNGS: Bilateral air entry, rare rhonchi. CARDIOVASCULAR: S1, S2. No murmurs, rubs, or gallops. ABDOMEN: Soft and nontender. EXTREMITIES: No clubbing. No cyanosis. There is no edema. INTEGUMENT: No rash. No purpura. LABORATORY DATA: no new updates IMPRESSION AND PLAN: 1. Acute respiratory failure, intubated/extubated 2. Pulmonary edema. Improving 3. Abnormal chest x-ray, possible pneumonia. 4. Status post cardiac arrest. 5. Critical bradycardia, asystoles + symptomatic junctional rhythm escape 6. End-stage renal disease. 7. Hypertension. 8. Diabetes. 9. Chronic anemia. 10. Peripheral vascular disease, s/p toe amputation. 11. Shock, distributive + cardiac. Resolved. Heart catheterization with no obstructive coronary artery disease, LVEF 65%. 12. Encephalopathy, resolved PPM care, sling mobilize PT follow up HD per renal expert Glycemic control PO diet okay for discharge and outpatient fo Thank you very much, Dr. Miranda and Dr. Mcgraw for allowing me a chance to participate in the care of Mr. Braxton Duke. Please call with any questions.
--- NOTE | 2019-06-01 23:22 | Progress Note ---
DATE: 06/01/2019 Cardiology Progress Note SUBJECTIVE: The patient denies shortness of breath. His chest continues to be sore, but improving. OBJECTIVE: VITAL SIGNS: Temperature 98.4 degrees, pulse 81, respiratory rate 18, blood pressure 122/62, oxygen saturation 100% on 2 L nasal cannula. He was seen on hemodialysis. GENERAL: Awake and alert, in no acute distress. LUNGS: Clear to auscultation bilaterally. No wheezes or crackles. CARDIOVASCULAR: Normal rate and regular rhythm. No murmur. Normal S1 and S2. ABDOMEN: Soft, nontender. EXTREMITIES: No edema. CARDIAC MEDICATIONS: Aspirin 81 mg p.o. daily and carvedilol 3.125 mg p.o. b.i.d. LABORATORY DATA: None today. TELEMETRY: Normal sinus rhythm. IMPRESSION: 1. Cardiac arrest. 2. Elevated troponin secondary to cardiac arrest. 3. Sick sinus syndrome, status post pacemaker. 4. End-stage renal disease, on hemodialysis. 5. Hypertension. 6. Hyperlipidemia. 7. Diabetes mellitus. 8. Peripheral arterial disease. RECOMMENDATIONS: The patient has been stable from a cardiovascular standpoint. Continue current cardiac medications. Cardiac catheterization after his cardiac arrest reveal nonobstructive coronary artery disease with preserved LVEF. He is now status post permanent pacemaker. The patient was instructed on the importance of followup with Electrophysiology and Cardiology 1 week after discharge. Thank you for this consult. We will continue to follow. Ching Melchor MD ABS/MODL /[id number]
--- NOTE | 2019-06-08 14:08 | Operative Report ---
DATE OF PROCEDURE: 05/24/2019 SURGEON: César Patiño MD INDICATION FOR PROCEDURE: Suspected ST-elevation TX and ventricular tachycardia. PROCEDURES PERFORMED: 1. Coronary angiography, right femoral approach. 2. Left heart catheterization. PROCEDURE DETAILS: The patient was brought to the cardiac catheterization laboratory in an emergency fashion. Bilateral groins were prepped and draped in a sterile fashion. Access to the right common femoral artery was obtained using modified Seldinger technique. A 6-Fijian sheath was inserted into the right common femoral artery without any complications. Coronary angiography was performed using the JL4 and JR4 diagnostic catheters. Left heart catheterization was performed using pigtail catheter. Left ventricular angiography was performed using the same pigtail catheter. Multiple orthogonal views were taken of each coronary artery. All catheters were removed over a wire. Access site was closed using ProGlide vascular closure device. There were no immediate complications. SIGNIFICANT FINDINGS: Right dominant system with luminal irregularities only. No significant coronary artery disease. Left ventricular end-diastolic pressure of 28 mmHg. Left ventricular ejection fraction of 65%. No gradient across the aortic valve. GRAFTS AND IMPLANTS: None. SPECIMEN REMOVED: None. ESTIMATED BLOOD LOSS: 10 mL. COMPLICATIONS: None. FINAL RECOMMENDATIONS: 1. Continue optimal medical therapy and risk factor control. 2. Follow up in clinic 2 weeks post procedure. César Patiño MD KVP/MODL /[id number]
--- NOTE | 2019-06-08 17:29 | Consultation ---
DATE OF CONSULTATION: 05/25/2019 Cardiology Consult Note REASON FOR CONSULT: Ventricular tachycardia, suspected ST-elevation OR. CHIEF COMPLAINT: Shortness of breath. HISTORY OF PRESENT ILLNESS: This is a 53-year-old man with history of hypertension, diabetes, end-stage renal disease and dialysis, and prior history of smoking, quit many years ago, who presented to the ER with shortness of breath, pulmonary edema requiring emergent intubation was noted to have ventricular tachycardia and cardiac arrest while he was in the ER, status post shock and returned to sinus rhythm followed by atrial fibrillation with rapid ventricular response concern for ST-elevation OR given left bundle-branch block and possible VT. The patient was taken to the cardiac catheterization laboratory urgent manner for suspected ST-elevation OR. However, coronary angiography revealed no significant coronary artery disease. REVIEW OF SYSTEMS: Could not be obtained as the patient is intubated. PAST MEDICAL HISTORY: 1. End-stage renal disease. 2. Hypertension. 3. Diabetes. 4. Hyperlipidemia. SOCIAL HISTORY: The patient is a former smoker, currently does not smoke or drink per the family. FAMILY HISTORY: Noncontributory. REVIEW OF SYSTEMS: Could not be obtained. OUTPATIENT MEDICATIONS: List not available to review. ALLERGIES: NO KNOWN DRUG ALLERGIES. PHYSICAL EXAMINATION: VITAL SIGNS: Temperature afebrile, blood pressure 113/50, heart rate 72, respiratory rate 22, saturating on mechanical ventilation. GENERAL: Intubated and sedated. CARDIOVASCULAR: Regular rate and rhythm. No murmurs, rubs, or gallops. LUNGS: Clear to auscultation bilaterally. ABDOMEN: Soft, nontender, nondistended. INPATIENT MEDICATIONS: Reviewed. LABORATORY DATA: Reviewed. TELEMETRY DATA: Reviewed. Unclear whether he had DVT or not earlier, as no strips were available. The patient has left bundle-branch block at baseline. ASSESSMENT AND PLAN: 1. Cardiac arrest, most likely secondary to hyperkalemia. 2. Acute respiratory failure requiring mechanical ventilation. 3. Hyperkalemia. 4. End-stage renal disease, on dialysis. 5. Uncontrolled diabetes. 6. History of hypertension. PLAN: Coronary angiography did not reveal any significant coronary artery disease as left bundle baseline left ventriculography showed normal LV ejection fraction. Cardiac arrest most likely secondary to hyperkalemia and respiratory failure, which are being treated with dialysis. Continue IV amiodarone. We will continue to monitor closely. Thank you for this consult. We will continue to follow. MD HARPER Damian/ROBER /[id number]
== END 2019-06-01 16:30 | disposition home or self-care (01) | DRG 242 ==
LOC: ER 16:59 → ERHOLD 18:41 → ICU 19:38 → IMCU 05-29 02:41
PROC: 5A1945Z Respiratory Ventilation, 24-96 Consecutive Hours (ICD-10-PCS; principal; 2019-05-24)
PROC: 4A023N7 Measurement of Cardiac Sampling and Pressure, Left Heart, Percutaneous Approach (ICD-10-PCS; 2019-05-24)
PROC: B2111ZZ Fluoroscopy of Multiple Coronary Arteries using Low Osmolar Contrast (ICD-10-PCS; 2019-05-24)
PROC: B2151ZZ Fluoroscopy of Left Heart using Low Osmolar Contrast (ICD-10-PCS; 2019-05-24)
PROC: 5A1D70Z Performance of Urinary Filtration, Intermittent, Less than 6 Hours Per Day (ICD-10-PCS; 2019-05-24)
PROC: 0JH606Z Insertion of Pacemaker, Dual Chamber into Chest Subcutaneous Tissue and Fascia, Open Approach (ICD-10-PCS; 2019-05-25)
PROC: 02H63JZ Insertion of Pacemaker Lead into Right Atrium, Percutaneous Approach (ICD-10-PCS; 2019-05-25)
PROC: 02HK3JZ Insertion of Pacemaker Lead into Right Ventricle, Percutaneous Approach (ICD-10-PCS; 2019-05-25)
PROC: 05H433Z Insertion of Infusion Device into Left Innominate Vein, Percutaneous Approach (ICD-10-PCS; 2019-05-25)
PROC: 5A1D70Z Performance of Urinary Filtration, Intermittent, Less than 6 Hours Per Day (ICD-10-PCS; 2019-05-25)
PROC: 5A1D70Z Performance of Urinary Filtration, Intermittent, Less than 6 Hours Per Day (ICD-10-PCS; 2019-05-27)
PROC: 5A1D70Z Performance of Urinary Filtration, Intermittent, Less than 6 Hours Per Day (ICD-10-PCS; 2019-05-29)
PROC: 5A1D70Z Performance of Urinary Filtration, Intermittent, Less than 6 Hours Per Day (ICD-10-PCS; 2019-06-01)
DX: I44.2 Atrioventricular block, complete (principal); J96.00 Acute respiratory failure, unspecified whether with hypoxia or hypercapnia; I21.4 Non-ST elevation (NSTEMI) myocardial infarction; I46.9 Cardiac arrest, cause unspecified; N18.6 End stage renal disease; I50.21 Acute systolic (congestive) heart failure; R57.9 Shock, unspecified; I12.0 Hypertensive chronic kidney disease with stage 5 chronic kidney disease or end stage renal disease; J81.1 Chronic pulmonary edema; G93.1 Anoxic brain damage, not elsewhere classified; I13.2 Hypertensive heart and chronic kidney disease with heart failure and with stage 5 chronic kidney disease, or end stage renal disease; I49.5 Sick sinus syndrome; E87.5 Hyperkalemia; I10 Essential (primary) hypertension; E11.22 Type 2 diabetes mellitus with diabetic chronic kidney disease; I48.91 Unspecified atrial fibrillation; I44.7 Left bundle-branch block, unspecified; E11.65 Type 2 diabetes mellitus with hyperglycemia; Z99.2 Dependence on renal dialysis; Z79.4 Long term (current) use of insulin; D63.1 Anemia in chronic kidney disease; E11.51 Type 2 diabetes mellitus with diabetic peripheral angiopathy without gangrene; E66.9 Obesity, unspecified; Z68.36 Body mass index [BMI] 36.0-36.9, adult
CPT/HCPCS: 33208; 36415; 36600; 70450; 71045; 71046; 80048; 80053; 80061; 82550; 82553; 82805; 82948; 83605; 83735; 83880; 84100; 84132; 84443; 84484; 85025; 85610; 85730; 86704; 86705; 86706; 86707; 87040; 87340; 87350; 90962; 93005; 93306; 93458; 94002; 94003; 94640; 96372; 99285; C1725; C1751; C1769; J0171; J0692; J1644; J1815; J2001; J2060; J2250; J3010; J3370; J7030; J7050; J7070; J7799; Q9967

== ENCOUNTER 2019-06-15 14:31 | Emergency (ER) | payer MEDICARE ==
[~2019-06-15] VITALS: Ht 175.3 cm; Wt 110.2 kg
[~2019-06-15 14:31] MED LIST changes: +CLONIDINE HCL0.1 MG PO; +RENVELA0.8 GM PO; +SODIUM BICARBO650 MG PO
[2019-06-15 15:38] LABS: BASOPHILS % 0.5 % (0.0-1.0); EOSINOPHILS # (AUTO) 0.1 (0.0-0.4); EOSINOPHILS % 0.9 % (0.0-6.0); HEMATOCRIT 29.8 % (38.2-49.6); LYMPHOCYTES # (AUTO) 0.9 (1.0-3.2); LYMPHOCYTES % 9.6 % (18.0-39.1); MEAN CORPUSCULAR HEMOGLOBIN 33.2 pg (28-32); MEAN CORPUSCULAR HGB CONC 33.6 g/dL (31-35); MONOCYTES # (AUTO) 0.9 (0.2-0.8); MONOCYTES % 10.5 % (4.4-11.3); NEUTROPHILS # (AUTO) 6.9 (2.1-6.9); NEUTROPHILS % 78.2 % (38.7-80.0); PLATELET COUNT 221 x10e3/uL (140-360); RED BLOOD COUNT 3.01 x10e6/uL (4.3-5.7); RED CELL DISTRIBUTION WIDTH 14.5 % (11.7-14.4)
[2019-06-15 15:49] LABS: INR 1.15; PROTHROMBIN TIME 15.3 seconds (11.9-14.5)
[2019-06-15 16:02] LABS: CREATINE KINASE MB 1.7 ng/mL (0-5.0)
[2019-06-15 16:17] LABS: ALBUMIN 2.8 g/dL (3.5-5.0); ALBUMIN/GLOBULIN RATIO 0.8 (0.8-2.0); ANION GAP 14.4 mmol/L (8-16); CALCIUM 9.2 mg/dL (8.4-10.2); CREATININE, SERUM 5.03 mg/dL (0.72-1.25); POTASSIUM 3.4 mmol/L (3.5-5.1)
--- NOTE | 2019-06-15 16:53 | Diagnostic Imaging Report ---
EXAMINATION: CHEST SINGLE (PORTABLE) INDICATION: Fever, abdominal pain COMPARISON: None FINDINGS: LINES/TUBES:Right chest wall lead pacemaker with with leads in unchanged position. LUNGS:The lungs are moderately inflated. There is perihilar fullness and indistinctness of the pulmonary vasculature. PLEURA:No pleural effusion or pneumothorax. MEDIASTINUM:Cardiomediastinal silhouette is stably enlarged. BONES/SOFT TISSUES:No acute osseous injury. ABDOMEN:No free air under the diaphragm. IMPRESSION: Cardiomegaly and mild pulmonary edema. Signed by: Jay Jay Ferrell MD on 06/15/2019 4:50 PM
--- NOTE | 2019-06-15 17:05 | Diagnostic Imaging Report ---
EXAM: CT Abdomen and Pelvis WITHOUT intravenous contrast INDICATION: Fever, abdominal pain COMPARISON: None. TECHNIQUE: Abdomen and pelvis were scanned utilizing a multidetector helical scanner from the lung base to the pubic symphysis without administration of IV contrast. Coronal and sagittal reformations were obtained. IV CONTRAST: None ORAL CONTRAST: Water COMPLICATIONS: None RADIATION DOSE: Total DLP: 892.98 mGy*cm Dose modulation, iterative reconstruction, and/or weight based adjustment of the mA/kV was utilized to reduce the radiation dose to as low as reasonably achievable. FINDINGS: LOWER THORAX: Minimal bibasilar dependent subsegmental atelectasis. Pacemaker leads partially visualized. Atherosclerotic calcifications of the coronary arteries. HEPATOBILIARY: No focal liver lesions. Gallbladder appears unremarkable. SPLEEN: No splenomegaly. PANCREAS: No focal masses or ductal dilatation. ADRENALS: No adrenal nodules. KIDNEYS/URETERS: No hydronephrosis, stones, or solid mass lesions. PELVIC ORGANS/BLADDER: Unremarkable. PERITONEUM / RETROPERITONEUM: Trace free fluid in the pelvis. No free air. LYMPH NODES: Multiple enlarged right lower quadrant mesenteric lymph nodes along the course of the ileocolic branch of the superior mesenteric artery, the largest of which measures up to 17 x 9 mm (series 3 image 101). There is adjacent mesenteric fat stranding in this distribution as well. VESSELS: Diffuse atherosclerotic calcifications of the nonaneurysmal abdominal aorta and major branches, particularly mesenteric and renal arterial branches. GI TRACT: Mild small bowel wall thickening in the right lower quadrant adjacent to area of mesenteric fat stranding, possibly reactive. No other abnormal bowel wall thickening. No bowel obstruction. Normal appendix. BONES AND SOFT TISSUES: No acute osseous injury. No suspicious lytic or blastic lesions. Mild degenerative changes of the visualized spine. IMPRESSION: Right lower quadrant mesenteric lymphadenopathy along the ileocolic branch of the superior mesenteric artery with adjacent mesenteric fat stranding and likely reactive adjacent small bowel wall thickening. Trace associated free fluid in the pelvis. In the presence of a normal appendix, this likely represents mesenteric adenitis. No other acute findings in abdomen or pelvis. Specifically, no renal calculi or hydronephrosis. Signed by: Jay Jay Ferrell MD on 06/15/2019 5:02 PM
[2019-06-15 18:33] VITALS: BP 102/59
== END 2019-06-15 17:45 | disposition home or self-care (01) ==
LOC: ER 14:31
DX: R50.9 Fever, unspecified (principal); R10.33 Periumbilical pain
CPT/HCPCS: 36415; 71045; 74176; 80053; 82150; 82550; 82553; 83690; 84484; 85025; 85610; 85730; 87400; 93005; 99284

== ENCOUNTER 2019-08-17 04:31 | Emergency (ER) | payer MEDICARE, OTHER ==
[~2019-08-17] VITALS: Ht 175.3 cm; Wt 110.2 kg
[2019-08-17 04:54] LABS: BASOPHILS # (AUTO) 0.1 (0.0-0.1); BASOPHILS % 0.7 % (0.0-1.0); EOSINOPHILS # (AUTO) 0.3 (0.0-0.4); EOSINOPHILS % 3.8 % (0.0-6.0); LYMPHOCYTES # (AUTO) 2.1 (1.0-3.2); LYMPHOCYTES % 29.7 % (18.0-39.1); MEAN CORPUSCULAR HEMOGLOBIN 28.5 pg (28-32); MEAN CORPUSCULAR HGB CONC 30.3 g/dL (31-35); MONOCYTES # (AUTO) 0.5 (0.2-0.8); MONOCYTES % 6.8 % (4.4-11.3); NEUTROPHILS # (AUTO) 4.2 (2.1-6.9); NEUTROPHILS % 58.7 % (38.7-80.0); PLATELET COUNT 224 x10e3/uL (140-360); RED BLOOD COUNT 3.51 x10e6/uL (4.3-5.7)
[2019-08-17 05:08] LABS: ALBUMIN 2.2 g/dL (3.5-5.0); ALBUMIN/GLOBULIN RATIO 0.6 (0.8-2.0); ANION GAP 15.8 mmol/L (8-16); CREATININE, SERUM 9.23 mg/dL (0.72-1.25); POTASSIUM 3.8 mmol/L (3.5-5.1)
[2019-08-17 05:15] LABS: CREATINE KINASE MB 4.1 ng/mL (0-5.0)
--- NOTE | 2019-08-17 05:15 | NUR ---
pt c 5 beat and beat run of vtach. to room, pt resting quietly in bed. no distress noted. resp even and unlabored on o2 3l nc. dr rodas informed, strips printed and placed on chart. Addendum: 08/17/19 at 0526 by HEAVEN pt c 5 beat and 8 beat run of vtach. to room, pt resting quietly in bed. no distress noted. resp even and unlabored on o2 3l nc. dr rodas informed, strips printed and placed on chart. Addendum: 08/17/19 at 0642 by HEAVEN pt c arrhythmia on telemetry. to room, pt resting quietly in bed. no distress noted. resp even and unlabored on o2 3l nc. dr rodas informed, strips printed and placed on chart.
--- NOTE | 2019-08-17 05:59 | Diagnostic Imaging Report ---
EXAMINATION: CHEST SINGLE (PORTABLE) INDICATION: Chest pain. COMPARISON: Chest radiograph 06/15/2019. FINDINGS: LINES/TUBES: Right chest wall lead pacemaker with with leads in unchanged position. LUNGS:The lungs are moderately inflated. There is increasing perihilar fullness and indistinctness of the pulmonary vasculature. Patchy bibasilar opacities, likely atelectasis. No new consolidation. PLEURA:No pleural effusion or pneumothorax. MEDIASTINUM: Mild enlargement of the cardiomediastinal silhouette. BONES/SOFT TISSUES:No acute osseous injury. ABDOMEN:No free air under the diaphragm. IMPRESSION: Cardiomegaly and increasing pulmonary edema. Signed by: Dr. Sakshi Kaufman MD on 08/17/2019 5:55 AM
[2019-08-17 08:04] LABS: CREATINE KINASE MB 3.7 ng/mL (0-5.0)
[2019-08-17] MEDS ORDERED: CEFTRIAXONE SOD 1 GM/NS 50 ML 50 ML IV STA (08:35)
[2019-09-22] MEDS ORDERED: ELIQUIS5 MG PO (12:33)
== END 2019-08-17 08:22 | disposition home or self-care (01) ==
LOC: ER 04:31
DX: I12.0 Hypertensive chronic kidney disease with stage 5 chronic kidney disease or end stage renal disease (principal); E11.22 Type 2 diabetes mellitus with diabetic chronic kidney disease; N18.6 End stage renal disease; Z99.2 Dependence on renal dialysis; I25.2 Old myocardial infarction
CPT/HCPCS: 36415; 71045; 80053; 82550; 82553; 84484; 85025; 93005; 99284

== ENCOUNTER 2019-12-23 15:37 | Inpatient (IN) | payer MEDICARE, OTHER ==
[~2019-12-23] VITALS: Ht 175.3 cm; Wt 106.1 kg
[~2019-12-23 15:37] MED LIST changes: +ELIQUIS5 MG PO
--- OUTSIDE RECORDS SUMMARY | 2019-12-23 15:40 | XMS REPORT | Summary of Care ---
Author Author [facility] - Health Organization [facility] - Health Address Unknown Phone Unavailable Care Team Providers Care Certified Medication Technician Name Role Phone Danielle Truong PCP Encounter Details Care Team Description Date Type Department Doctor Unassigned, [address] [place] [address] 10/06/2019 Orders Only [address] [address] Allergies No Known Allergiesdocumented as of this encounter (statuses as of 10/06/2019) Medications End Date Status Medication Sig Dispensed Refills Start Date Active metoprolol succinate XL Take 25 mg by 0 25 mg 24 hr tablet mouth daily. Active amLODIPine 5 mg tablet Take 5 mg by 0 mouth daily. Active apixaban (ELIQUIS) 5 mg Take 5 mg by 0 tablet mouth 2 (two) times daily. Active cloNIDine 0.1 mg tablet Take 0.1 mg 0 by mouth 2 (two) times daily. Active furosemide 40 mg tablet Take 40 mg by 0 mouth daily. Active insulin detemir (LEVEMIR inject under 0 U-100 INSULIN SC) the skin at bedtime. Active NOVOLOG U-100 INSULIN inject under 0 ASPART SC the skin. Active omeprazole 20 mg capsule Take 20 mg by 0 mouth daily. Active sevelamer (RENVELA) 800 Take 800 mg 0 mg tablet by mouth 3 (three) times daily with meals. Active SODIUM BICARBONATE ORAL Take 650 mg 0 by mouth 2 (two) times daily. Active acetaminophen (TYLENOL Take 500 mg 0 ORAL) by mouth as needed. Active amiodarone 200 mg Take 1 tablet 90 tablet 1 tabletIndications: S/P by mouth 2 0 ablation of atrial (two) times fibrillation daily. 10/30/2019 Active sucralfate 100 mg/mL Take 10 mL by 600 mL 0 suspensionIndications: mouth 2 (two) 0 S/P ablation of atrial times daily fibrillation for 30 days. documented as of this encounter (statuses as of 10/06/2019) Active Problems Problem Noted Date S/P ablation of atrial fibrillation 09/29/2019 Overview: Pulmonary vein isolation ablation by Dr. Baxter on 09/29/2019 H/O atrioventricular mamie ablation 09/29/2019 documented as of this encounter (statuses as of 10/06/2019) Social History Date Tobacco Use Types Packs/Day Years Used Never Assessed Sex Assigned at Date Recorded Not on file Industry Job Start Date Occupation Not on file Not on file Not on file Travel End Travel History Travel Start No recent travel history available. documented as of this encounter Last Filed Vital Signs Not on filedocumented in this encounter Plan of Treatment Health Maintenance Due Date Last Done Comments HEPATITIS C (HCV) SCREEN 1964 DTaP,Tdap,and Td Vaccines 01/01/1976 (1 - Tdap) COLONOSCOPY 2014 Zoster Recombinant 2014 Vaccine (SHINGRIX) (1 of 2) INFLUENZA VACCINE (#1) 2019 PNEUMOCOCCAL 0-64 YEARS Aged Out No longer eligible based COMBINED SERIES on patient's age to complete this topic documented as of this encounter Implants Device Identifier Shelf Expiration Date Model / Serial / Lot Implanted Type Area Manufactur er Pacemaker PACEMAKER Left: Chest documented as of this encounter Procedures Comments Procedure Name Priority Date/Time Associated Diagnosis EXTERNAL PROVIDER RECORDS Routine 10/06/2019 12:01 AM 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 [place] [id number] HMO/PPO/POS [facility] [id number] 2019-P HEALTHCARE resent PPO documented as of this encounter
--- OUTSIDE RECORDS SUMMARY | 2019-12-23 15:40 | XMS REPORT | Summary of Care ---
Author Author [facility] - Health Organization [facility] - Health Address Unknown Phone Unavailable Care Team Providers Care Speech Pathology Supervisor Name Role Phone Danielle Truong PCP Reason for Visit * Auth/Cert Referred By Contact Referred To Contact Status Reason Specialty Diagnoses / Procedures Clc [address]a [address] [place] [address] Medicine - Diagnoses Inpatient only Paroxysmal atrial fibrillation I48.1 Procedures EP procedure Encounter Details Care Team Description [place] [address] [facility] [address] [place] [address] [phone] [place] [address] [facility] [address] [place] [address] [phone] 1, Clc Cardiac Proc Room Anesthesia, Clc Ep Lab S/P ablation of atrial fibrillation 09/29/2019 Hospital [facility] Health - Encounter Medicine/Surgery CLC 4A 09/30/2019 [address] [place] [address] Allergies No Known Allergiesdocumented as of this encounter (statuses as of 09/30/2019) Medications End Date Status Medication Sig Dispensed [...] as of this encounter (statuses as of 09/30/2019) Active Problems Problem Noted Date S/P ablation of atrial fibrillation 09/29/2019 Overview: Pulmonary vein isolation ablation by Dr. Baxter on 09/29/2019 H/O atrioventricular mamie ablation 09/29/2019 documented as of this encounter (statuses as of 09/30/2019) Social History Date Tobacco Use Types Packs/Day Years Used Never Assessed Sex Assigned at Date Recorded Not on file Industry Job Start Date Occupation Not on file Not on file Not on file Travel End Travel History Travel Start No recent travel history available. documented as of this encounter Last Filed Vital Signs Reading Time Taken Comments Vital Sign 135/76 09/30/2019 7:27 PM DENSITOMETRIST Blood Pressure 74 09/30/2019 7:27 PM DENSITOMETRIST Pulse 37 C (98.6 F) 09/30/2019 7:27 PM DENSITOMETRIST Temperature 17 09/30/2019 7:27 PM DENSITOMETRIST Respiratory Rate 98% 09/30/2019 7:27 PM DENSITOMETRIST Oxygen Saturation - - Inhaled Oxygen Concentration 106.8 kg (235 lb 7.2 oz) 09/30/2019 7:08 PM DENSITOMETRIST Weight - - Height 34.77 09/22/2019 7:55 AM DENSITOMETRIST Body Mass Index documented in this encounter Discharge Summaries * Sudarshan Suarez MD - 09/30/2019 12:14 PM DENSITOMETRIST XpertMD Discharge Note Dr. Sudarshan Suarez Subjective: Patient seen & examined. Events reviewed. Objective: Vitals: 09/29/19 2000 09/30/19 0000 09/30/19 0400 09/30/19 0800 BP: (!) 180/83 119/50 (!) 153/62 (!) 179/94 Pulse: 97 82 74 85 Resp: 16 18 16 18 Temp: 36.8 C (98.2 F) 37.4 C (99.3 F) 37.2 C (98.9 F) 36.8 C (98.3 F) TempSrc: Oral Oral Oral Oral SpO2: 93% 97% 98% 93% General: awake, alert, no distress HEENT: NC, AT, PERRLA, EOMI, MMM, anicteric sclera Neck: no JVD/lymphadenopathy CV: RRR, no murmurs, rubs, gallops Lungs: clear to auscultation bilaterally Abdomen: soft, NT, ND, (+)BS Skin: no rashes Extremities: no clubbing, cyanosis, edema Neuro: CN 2-12 intact, no focal deficits Psych: oriented x 3, normal affect Labs: Recent Results (from the past 48 hour(s)) Type and Screen - ONCE Routine Collection Time: 09/29/19 11:09 AM Result Value Ref Range ABO & RH B Positive IAT Negative BASIC METABOLIC PANEL (NA, K, CL, CO2, GLUCOSE, BUN, CREATININE, CA) Collection Time: 09/29/19 11:11 AM Result Value Ref Range NA 138 135 - 145 mmol/L K 3.8 3.5 - 5.0 mmol/L CL 97 (L) 98 - 108 mmol/L CO2 TOTAL 30 23 - 31 mmol/L AGAP 11 2 - 16 BUN 18 7 - 23 mg/dL GLUCOSE 140 (H) 70 - 110 mg/dL CREATININE 5.77 (H) 0.60 - 1.25 mg/dL CALCIUM 8.9 8.6 - 10.6 mg/dL eGFR Calculation (Non-) 10.3 mL/min/1.73m2 eGFR Calculation () 12.5 mL/min/1.73m2 PROTHROMBIN TIME / INR Collection Time: 09/29/19 11:11 AM Result Value Ref Range PROTIME PATIENT 16.8 (H) 10.1 - 12.6 Seconds INR 1.5 CBC WITH DIFFERENTIAL Collection Time: 09/29/19 11:11 AM Result Value Ref Range WBC 6.35 4.20 - 10.70 10*3/L RBC 4.37 4.26 - 5.52 10*6/L HGB 11.9 (L) 12.2 - 16.4 g/dL HCT 39.8 38.4 - 49.3 % MCV 91.1 81.7 - 95.6 fL MCH 27.2 26.1 - 32.7 pg MCHC 29.9 (L) 31.2 - 35.0 g/dL RDW-SD 49.1 38.5 - 51.6 fL RDW-CV 15.0 12.1 - 15.4 % PLT 215 150 - 328 10*3/L MPV 10.3 9.8 - 13.0 fL NRBC/100 WBC 0.0 0.0 - 10.0 /100 WBCs NRBC x10^3 <0.01 10*3/L GRAN MAT (NEUT) % 60.5 % IMM GRAN % 0.30 % LYMPH % 27.1 % MONO % 8.8 % EOS % 2.7 % BASO % 0.6 % GRAN MAT x10^3(ANC) 3.84 1.99 - 6.95 10*3/uL IMM GRAN x10^3 <0.03 0.00 - 0.06 10*3/uL LYMPH x10^3 1.72 1.09 - 3.23 10*3/uL MONO x10^3 0.56 0.36 - 1.02 10*3/uL EOS x10^3 0.17 0.06 - 0.53 10*3/uL BASO x10^3 0.04 0.01 - 0.09 10*3/uL ABORH CONFIRMATION Collection Time: 09/29/19 11:55 AM Result Value Ref Range ABO & RH B Positive POCT ACT LOW RANGE Collection Time: 09/29/19 12:45 PM Result Value Ref Range ACTLR 353 (H) 89 - 169 Seconds POCT ACT LOW RANGE Collection Time: 09/29/19 1:38 PM Result Value Ref Range ACTLR 271 (H) 89 - 169 Seconds POCT GLUCOSE (AUTOMATED) Collection Time: 09/29/19 6:21 PM Result Value Ref Range POCT GLU 157 (H) 70 - 110 mg/dL POCT GLUCOSE (AUTOMATED) Collection Time: 09/29/19 8:58 PM Result Value Ref Range POCT GLU 163 (H) 70 - 110 mg/dL Basic Metabolic Panel (NA, K, CL, CO2, GLUCOSE, BUN, CREATININE, CA) Collection Time: 09/30/19 5:55 AM Result Value Ref Range NA 136 135 - 145 mmol/L K 4.2 3.5 - 5.0 mmol/L CL 99 98 - 108 mmol/L CO2 TOTAL 29 23 - 31 mmol/L AGAP 8 2 - 16 BUN 24 (H) 7 - 23 mg/dL GLUCOSE 122 (H) 70 - 110 mg/dL CREATININE 6.56 (H) 0.60 - 1.25 mg/dL CALCIUM 8.7 8.6 - 10.6 mg/dL eGFR Calculation (Non-) 8.9 mL/min/1.73m2 eGFR Calculation () 10.8 mL/min/1.73m2 CBC WITH DIFFERENTIAL Collection Time: 09/30/19 5:55 AM Result Value Ref Range WBC 5.79 4.20 - 10.70 10*3/L RBC 3.70 (L) 4.26 - 5.52 10*6/L HGB 10.6 (L) 12.2 - 16.4 g/dL HCT 34.2 (L) 38.4 - 49.3 % MCV 92.4 81.7 - 95.6 fL MCH 28.6 26.1 - 32.7 pg MCHC 31.0 (L) 31.2 - 35.0 g/dL RDW-SD 50.9 38.5 - 51.6 fL RDW-CV 15.3 12.1 - 15.4 % PLT 189 150 - 328 10*3/L MPV 10.0 9.8 - 13.0 fL NRBC/100 WBC 0.0 0.0 - 10.0 /100 WBCs NRBC x10^3 <0.01 10*3/L GRAN MAT (NEUT) % 63.5 % IMM GRAN % 0.30 % LYMPH % 22.1 % MONO % 10.5 % EOS % 3.1 % BASO % 0.5 % GRAN MAT x10^3(ANC) 3.67 1.99 - 6.95 10*3/uL IMM GRAN x10^3 <0.03 0.00 - 0.06 10*3/uL LYMPH x10^3 1.28 1.09 - 3.23 10*3/uL MONO x10^3 0.61 0.36 - 1.02 10*3/uL EOS x10^3 0.18 0.06 - 0.53 10*3/uL BASO x10^3 0.03 0.01 - 0.09 10*3/uL Hepatitis B Surface Antigen (HBsAg) Collection Time: 09/30/19 5:55 AM Result Value Ref Range HBsAg Negative Negative HBsAg Semi-Quantitative 0.04 POCT GLUCOSE (AUTOMATED) Collection Time: 09/30/19 7:54 AM Result Value Ref Range POCT GLU 122 (H) 70 - 110 mg/dL POCT GLUCOSE (AUTOMATED) Collection Time: 09/30/19 12:00 PM Result Value Ref Range POCT GLU 126 (H) 70 - 110 mg/dL Current Facility-Administered Medications: acetaminophen (TYLENOL) tablet 650 mg, 650 mg, Oral, Q6HPRN, Real Granger, ACNP, 650 mg at 09/30/19 1106 acetaminophen-codeine (TYLENOL #3) 300-30 mg tablet 1 tablet, 1 tablet, Yohannesa l, Q6HPRN, Aliyah Granger, ACNP amiodarone (PACERONE) tablet 200 mg, 200 mg, Oral, BID, Bocado, Marieflor, MANAGER CLINICAL SERVICES, 200 mg at 09/30/19 0907 amLODIPine (NORVASC) tablet 5 mg, 5 mg, Oral, DAILY, Bocado, Marieflor, MANAGER CLINICAL SERVICES , 5 mg at 09/30/19 0905 apixaban (ELIQUIS) tablet 5 mg, 5 mg, Oral, BID, Bocado, Marieflor, MANAGER CLINICAL SERVICES, 5 mg at 09/30/19 0905 cloNIDine (CATAPRES) tablet 0.1 mg, 0.1 mg, Oral, BID, Bocado, Marieflor, F DIRECTOR OF INSTRUCTIONAL TECHNOLOGY, 0.1 mg at 09/30/19 0904 cloNIDine (CATAPRES) tablet 0.1 mg, 0.1 mg, Oral, Q8HPRN, Katelyn Suarez MD, 0.1 mg at 09/29/19 1823 docusate (COLACE) capsule 100 mg, 100 mg, Oral, DAILY, Aliyah Granger M, ACNP furosemide (LASIX) tablet 40 mg, 40 mg, Oral, DAILY, Bocado, Kaylynneflor, MANAGER CLINICAL SERVICES , 40 mg at 09/30/19 0904 insulin detemir U-100 (LEVEMIR U-100 INSULIN) injection 28 Units, 28 Units, Subcutaneous, QHS, Bocado, Marieflor, MANAGER CLINICAL SERVICES metoprolol succinate XL (TOPROL XL) tablet 25 mg, 25 mg, Oral, DAILY, Bocad o, Kaylynneflor, MANAGER CLINICAL SERVICES, 25 mg at 09/30/19 0904 morpHINE injection 2 mg, 2 mg, Slow IV Push, Q4HPRN, Aliyah Granger, A EVENT ATTENDANT morpHINE injection 4 mg, 4 mg, Slow IV Push, Q6HPRN, Bocjamir, Kaylnyneflor, MANAGER CLINICAL SERVICES omeprazole (PRILOSEC) capsule 20 mg, 20 mg, Oral, DAILY, Bocjamir, Kaylynneflor, MANAGER CLINICAL SERVICES, 20 mg at 09/30/19 0904 ondansetron (ZOFRAN (PF)) injection 4 mg, 4 mg, Slow IV Push, Q6HPRN, Aliyah Lozada M, ACNP sevelamer (RENVELA) tablet 800 mg, 800 mg, Oral, TID MEALS, Harini, Kaylynnefl or, MANAGER CLINICAL SERVICES, 800 mg at 09/30/19 0904 Sliding Scale Insulin - Aspart (NOVOLOG) + Fsbg Testing, , Subcutaneous, TI D MEALS+HS, Bocado, Kaylynneflor, MANAGER CLINICAL SERVICES, Stopped at 09/29/19 1700 sodium bicarbonate (ANTACID (SODIUM BICARBONATE)) tablet 650 mg, 650 mg, Or al, BID, Bocado, Marieflor, MANAGER CLINICAL SERVICES, 650 mg at 09/30/19 0904 sucralfate (CARAFATE) 100 mg/mL suspension 1,000 mg, 1 g, Oral, BID, Bocado , Marieflor, MANAGER CLINICAL SERVICES, 1,000 mg at 09/30/19 0907 Assessment: Ludwig Mcgee is a 53 year old male admitted with: S/P ablation for atrial fibrillation HTN DM 2 PLAN: Telemetry Anticoagulation 6 hours post op Pain medication Labs Home medication Likely DC tomorrow Further recommendations based on clinical course Hospital Course: Mr. Mcgee presented yesterday for atrial fibrillation on the behest of his elec trophysiologist for ablation. He had pulmonary vein ablation done yesterday and reports only mild chest pain this morning. The case was discussed at bedside wit h electrophysiology as well and the patient is being cleared for discharge after hemodialysis today. The patient will have hemodialysis here and then follow-up with his regular care time on Saturday. He had prescription sent for amiodarone an d Carafate and he was instructed on monitoring his access site is well. He will follow-up with electrophysiology in 2 weeks. ADMISSION DATE: 09/29/2019 DISCHARGE DATE:09/30/2019 DISPOSITION: To home CONDITION: Improved ACTIVITY: As tolerated DIET: Cardiac MEDICATION: See discharge medical reconciliation form FOLLOW UP: PCP in one week Sudarshan Suarez MD ITOMETRIST documented in this encounter Discharge Instructions * Attachments The following attachments cannot be sent through Care Everywhere.* About Arrhythmias ([place]) * Ablation, Having Catheter ([place]) * Amiodarone tablets ([place]) * Sucralfate tablets ([place]) documented in this encounter Progress Notes * Adriana Schuler, MANAGER CLINICAL SERVICES - 09/30/2019 9:21 AM DENSITOMETRIST Brief Cath/EP Progress Note POD #1 HPI: Ludwig Mcgee is a 53 year old male is s-p pulmonary vein ablation on 2019. Subjective: The patient was seen this morning sitting up in bed, reports of mild chest pain, tolerable. Awaiting dialysis. Objective: Vitals: 09/29/19 2000 09/30/19 0000 09/30/19 0400 09/30/19 0800 BP: (!) 180/83 119/50 (!) 153/62 (!) 179/94 Pulse: 97 82 74 85 Resp: 16 18 16 18 Temp: 36.8 C (98.2 F) 37.4 C (99.3 F) 37.2 C (98.9 F) 36.8 C (98.3 F) TempSrc: Oral Oral Oral Oral SpO2: 93% 97% 98% 93% Results for LUDWIG MCGEE ( ) as of 09/30/2019 10:59 Ref. Range 09/30/2019 05:55 WBC x10^3 Latest Ref Range: 4.20 - 10.70 10*3/L 5.79 RBC x10^6 Latest Ref Range: 4.26 - 5.52 10*6/L 3.70 (L) HGB Latest Ref Range: 12.2 - 16.4 g/dL 10.6 (L) HCT Latest Ref Range: 38.4 - 49.3 % 34.2 (L) MCV Latest Ref Range: 81.7 - 95.6 fL 92.4 MCH Latest Ref Range: 26.1 - 32.7 pg 28.6 MCHC Latest Ref Range: 31.2 - 35.0 g/dL 31.0 (L) RDW-SD Latest Ref Range: 38.5 - 51.6 fL 50.9 RDW-CV Latest Ref Range: 12.1 - 15.4 % 15.3 PLT x10^3 Latest Ref Range: 150 - 328 10*3/L 189 MPV Latest Ref Range: 9.8 - 13.0 fL 10.0 NRBC /100 WBC Latest Ref Range: 0.0 - 10.0 /100 WBCs 0.0 NRBC x10^3 Latest Units: 10*3/L <0.01 GRAN MAT (NEUT) % Latest Units: % 63.5 IMM GRAN % Latest Units: % 0.30 LYMPH% Latest Units: % 22.1 MONO % Latest Units: % 10.5 EOS % Latest Units: % 3.1 BASO % Latest Units: % 0.5 GRAN MAT x10^3(ANC) Latest Ref Range: 1.99 - 6.95 10*3/uL 3.67 IMM GRAN x10^3 Latest Ref Range: 0.00 - 0.06 10*3/uL <0.03 LYMPH x10^3 Latest Ref Range: 1.09 - 3.23 10*3/uL 1.28 MONO x10^3 Latest Ref Range: 0.36 - 1.02 10*3/uL 0.61 EOS x10^3 Latest Ref Range: 0.06 - 0.53 10*3/uL 0.18 BASO x10^3 Latest Ref Range: 0.01 - 0.09 10*3/uL 0.03 NA Latest Ref Range: 135 - 145 mmol/L 136 K Latest Ref Range: 3.5 - 5.0 mmol/L 4.2 CL Latest Ref Range: 98 - 108 mmol/L 99 CO2 TOTAL Latest Ref Range: 23 - 31 mmol/L 29 AGAP Latest Ref Range: 2 - 16 8 BUN Latest Ref Range: 7 - 23 mg/dL 24 (H) GLUCOSE Latest Ref Range: 70 - 110 mg/dL 122 (H) CREATININE Latest Ref Range: 0.60 - 1.25 mg/dL 6.56 (H) eGFR CALCULATION (non ) Latest Units: mL/min/1.73m2 8.9 eGFR CALCULATION () Latest Units: mL/min/1.73m2 10.8 CALCIUM Latest Ref Range: 8.6 - 10.6 mg/dL 8.7 Telemetry: sinus rhythm Procedure site: right groin suture removed, slight oozing noted. Site soft, no h ematoma. Tegaderm clean dry and intact. Physical Exam Constitutional: He is oriented to person, place, and time. He appears well-devel oped and well-nourished. HENT: Head: Normocephalic and atraumatic. Eyes: Pupils are equal, round, and reactive to light. Neck: Normal range of motion. Cardiovascular: Normal rate and regular rhythm. Pulmonary/Chest: Effort normal and breath sounds normal. Abdominal: Soft. Bowel sounds are normal. Musculoskeletal: Normal range of motion. Neurological: He is alert and oriented to person, place, and time. Skin: Skin is warm and dry. Psychiatric: He has a normal mood and affect. Plan: Ok for discharge home per EP F/u with Dr. Grday in 2 weeks Rx sent for amiodarone and carafate Resume other meds Monitor for s/s of infection at access sites ITOMETRIST * Adriana Schuler, [facility] - 09/29/2019 2:23 PM DENSITOMETRIST Preliminary Electrophysiology Study/Ablation Procedure Report Date of Service: 09/29/2019 [place] Supervisor: Dylan Baxter MD Indication/Diagnosis: Atrial fibrillation Consent type: elective procedure and indications/complications discussed; writte n consent obtained Time out completed: Yes Aseptic technique: Chloroprep Procedure(s): EP study & ablation Local Anesthesia: 1% lidocaine without epinephrine Sedation: general; see anesthesia flowsheet Access site: Right femoral veins; radial arterial line for hemodynamic monitorin g Closure Method: Manual Sterile dressing: yes Complications: None Estimated Blood Loss: <10 cc Specimens Removed: None Impression: Successful pulmonary vein isolation with 3D mapping, transseptal puncture, and i ntra-cardiac echo Plan: Admit to telemetry; anticipated discharge date tomorrow Resume home meds, including anticoagulation 6 hrs post procedure Start amiodarone 200 mg PO BID BRx4 hrs, keep right legs straight; suture to be removed tomorrow Chest pain anticipated- morphine PRN Start sucralfate 1000mg BID x 2 weeks, and pantoprazole 40 mg daily x 30 days Full report to follow. Case discussed with Dr. Baxter. ITOMETRIST documented in this encounter Plan of Treatment Care Team Description [place] [address] [place] [address] [phone] Anesthesia, Clc Ep Lab 2, Clc Cardiac Proc Room Canceled (PATIENT CANCELLED ) 10/01/2019 [facility] Cardiac Electrophysiology Encounter Order Schedule Name Type Priority Associated Diagnoses TOMORROW AM AT 0600 for 1 Occurrences starting 09/30/2019 until 09/30/2019 EKG-12 LEAD ROUTINE HEART STATION Routine Health Maintenance Due Date Last Done Comments [...] Comments Procedure Name Priority Date/Time Associated Diagnosis POCT GLUCOSE (AUTOMATED) Routine 09/30/2019 4:41 PM DENSITOMETRIST POCT GLUCOSE (AUTOMATED) Routine 09/30/2019 12:00 PM DENSITOMETRIST POCT GLUCOSE (AUTOMATED) Routine 09/30/2019 7:54 AM DENSITOMETRIST CBC WITH DIFFERENTIAL Routine 09/30/2019 5:55 AM DENSITOMETRIST HEPATITIS B SURFACE Add-on 09/30/2019 ANTIGEN 5:55 AM DENSITOMETRIST CBC WITH DIFFERENTIAL Routine 09/30/2019 5:55 AM DENSITOMETRIST BASIC METABOLIC PANEL Routine 09/30/2019 (NA, K, CL, CO2, GLUCOSE, 5:55 AM DENSITOMETRIST BUN, CREATININE, CA) POCT GLUCOSE (AUTOMATED) Routine 09/29/2019 8:58 PM DENSITOMETRIST POCT GLUCOSE (AUTOMATED) Routine 09/29/2019 6:21 PM DENSITOMETRIST POCT ACT LOW RANGE Routine 09/29/2019 1:38 PM DENSITOMETRIST POCT ACT LOW RANGE Routine 09/29/2019 12:45 PM DENSITOMETRIST ABORH CONFIRMATION Routine 09/29/2019 11:55 AM DENSITOMETRIST CBC WITH DIFFERENTIAL Routine 09/29/2019 Paroxysmal atrial 11:11 AM DENSITOMETRIST fibrillation PROTHROMBIN TIME / INR Routine 09/29/2019 Paroxysmal atrial 11:11 AM DENSITOMETRIST fibrillation CBC WITH DIFFERENTIAL Routine 09/29/2019 Paroxysmal atrial 11:11 AM DENSITOMETRIST fibrillation BASIC METABOLIC PANEL Routine 09/29/2019 Paroxysmal atrial (NA, K, CL, CO2, GLUCOSE, 11:11 AM DENSITOMETRIST fibrillation BUN, CREATININE, CA) HB ABO GROUPING Routine 09/29/2019 Paroxysmal atrial 11:09 AM DENSITOMETRIST fibrillation EXTERNAL PROVIDER RECORDS Routine 09/29/2019 12:01 AM DENSITOMETRIST documented in this encounter Results * POCT GLUCOSE (AUTOMATED) (09/30/2019 4:41 PM DENSITOMETRIST) POCT GLU 127 (H) 70 - 110 mg/dL [facility] Specimen Blood Performing Organization Address City/State/Zipcode Phone Number [facility] CLIA: [id number], [address] [place] [address] St * POCT GLUCOSE (AUTOMATED) (09/30/2019 12:00 PM DENSITOMETRIST) POCT GLU 126 (H) 70 - 110 mg/dL [facility] Specimen Blood Performing Organization Address [facility] Phone Number [facility] CLIA: [id number], [address] [place] [address] St * POCT GLUCOSE (AUTOMATED) (09/30/2019 7:54 AM DENSITOMETRIST) POCT GLU 122 (H) 70 - 110 mg/dL [facility] Specimen Blood Performing Organization Address [facility] Phone Number [facility] CLIA: [id number], [address] [place] [address] St * Hepatitis B Surface Antigen (HBsAg) (09/30/2019 5:55 AM DENSITOMETRIST) Pathologist [facility] HBsAg Negative Negative [facility] HBsAg 0.04 [facility] Semi-Quantitati [facility] Specimen Blood - HAND, RIGHT Performing Organization Address [facility] Phone Number [facility] CLIA: [id number], [address] [place] [address] [facility] * CBC WITH DIFFERENTIAL (09/30/2019 5:55 AM DENSITOMETRIST) WBC 5.79 4.20 - 10.70 [facility] 10*3/L [facility] RBC 3.70 (L) 4.26 - 5.52 10*6/L [facility] HGB 10.6 (L) 12.2 - 16.4 g/dL [facility] HCT 34.2 (L) 38.4 - 49.3 % [facility] MCV 92.4 81.7 - 95.6 fL [facility] MCH 28.6 26.1 - 32.7 pg [facility] MCHC 31.0 (L) 31.2 - 35.0 g/dL [facility] RDW-SD 50.9 38.5 - 51.6 fL [facility] RDW-CV 15.3 12.1 - 15.4 % [facility] PLT 189 150 - 328 10*3/L [facility] MPV 10.0 9.8 - 13.0 fL [facility] NRBC/100 WBC 0.0 0.0 - 10.0 /100 WBCs [facility] NRBC x10^3 <0.01 10*3/L [facility] GRAN MAT (NEUT) 63.5 % [facility] % [facility] IMM GRAN % 0.30 % [facility] LYMPH % 22.1 % [facility] MONO % 10.5 % [facility] EOS % 3.1 % [facility] BASO % 0.5 % [facility] GRAN MAT 3.67 1.99 - 6.95 10*3/uL [facility] x10^3(ANC) [facility] IMM GRAN x10^3 <0.03 0.00 - 0.06 10*3/uL [facility] LYMPH x10^3 1.28 1.09 - 3.23 10*3/uL [facility] MONO x10^3 0.61 0.36 - 1.02 10*3/uL [facility] EOS x10^3 0.18 0.06 - 0.53 10*3/uL [facility] BASO x10^3 0.03 0.01 - 0.09 10*3/uL [facility] Specimen Blood - HAND, RIGHT Performing Organization Address City/State/Zipcode Phone Number [facility] CLIA: [id number], [address] [place], [place] [id number] [facility] * Basic Metabolic Panel (NA, K, CL, CO2, GLUCOSE, BUN, CREATININE, CA) (09/30/2019 5:55 AM DENSITOMETRIST) NA 136 135 - 145 mmol/L [facility] K 4.2 3.5 - 5.0 mmol/L [facility] CL 99 98 - 108 mmol/L [facility] CO2 TOTAL 29 23 - 31 mmol/L [facility] AGAP 8 2 - 16 [facility] BUN 24 (H) 7 - 23 mg/dL [facility] GLUCOSE 122 (H) 70 - 110 mg/dL [facility] CREATININE 6.56 (H) 0.60 - 1.25 mg/dL [facility] CALCIUM 8.7 8.6 - 10.6 mg/dL [facility] eGFR 8.9 mL/min/1.73m2 [facility] Calculation [facility] ([facility] [place]ian) eGFR 10.8 mL/min/1.73m2 [facility] ([facility] [place]) Specimen Blood - HAND, RIGHT Narrative Performed At Association of Glomerular Filtration Rate (GFR) and Staging of Kidney Disease* [facility] + + + + [facility] | GFR (mL/min/1.73 m2) | With Kidney Damage | Without Kidney Damage CAMPUS + + + + | >90 | Stage one | Normal + + + + | 60-89 | Stage two | Decreased GFR + + + + | 30-59 | Stage three | Stage three + + + + | 15-29 | Stage four | Stage four + + + + | <15 (or dialysis) | Stage five | Stage five + + + + *Each stage assumes the associated GFR level has been in effect for at least three months. Stages 1 to 5, with or without kidney disease, indicate chronic kidney disease. Notes: Determination of stages one and two (with eGFR >59mL/min/1.73 m2) requires estimation of kidney damage for at least three months as defined by structural or functional abnormalities of the kidney, manifested by either: Pathological abnormalities or Markers of kidney damage (including abnormalities in the composition of the blood or urine or abnormalities in imaging tests). Performing Organization Address City/State/Zipcode Phone Number [facility] CLIA: [id number], [address] [place] [address] [facility] * POCT GLUCOSE (AUTOMATED) (09/29/2019 8:58 PM DENSITOMETRIST) POCT GLU 163 (H) [phone] mg/dL [facility] Specimen Blood Performing Organization Address City/[facility]/Zipcode Phone Number [facility] CLIA: [id number], [address] [place] [address] St * POCT GLUCOSE (AUTOMATED) (09/29/2019 6:21 PM DENSITOMETRIST) Pathologist [facility] POCT GLU 157 (H) 70 - 110 mg/dL [facility] Specimen Blood Performing Organization Address City/[facility]/Zipcode Phone Number [facility] CLIA: [id number], [address] [place], [place] [address] St * POCT ACT LOW RANGE (09/29/2019 1:38 PM DENSITOMETRIST) ACTLR 271 (H) 89 - 169 Seconds [facility] Specimen Blood Performing Organization Address City/[facility] Cent[facility] Phone Number [facility] CLIA: [id number], [address] [place] [address] [facility] * POCT ACT LOW RANGE (09/29/2019 12:45 PM DENSITOMETRIST) Pathologist [facility] ACTLR 353 (H) 89 - 169 Seconds [facility] Specimen Blood Performing Organization Address City/[facility] [place] [facility] Centercoco Phone Number [facility] CLIA: [id number], [address] [place] [address] [facility] * ABORH CONFIRMATION (09/29/2019 11:55 AM DENSITOMETRIST) Pathologist [facility] ABO & RH B Positive LAB Comment: Performed at [facility] Laboratory Services - [facility] Blood Bank [address] [place] [phone] Toll Free: [phone] CLIA No. [id number] Specimen Performing Organization Address City/[facility] [place] [facility] Cent[facility]oco Phone Number D LAB * CBC WITH DIFFERENTIAL (09/29/2019 11:11 AM DENSITOMETRIST) Pathologist [facility] WBC 6.35 4.20 - 10.70 [facility] 10*3/L [facility] RBC 4.37 4.26 - 5.52 10*6/L [facility] HGB 11.9 (L) 12.2 - 16.4 g/dL [facility] HCT 39.8 38.4 - 49.3 % [facility] MCV 91.1 81.7 - 95.6 fL [facility] MCH 27.2 26.1 - 32.7 pg [facility] MCHC 29.9 (L) 31.2 - 35.0 g/dL [facility] RDW-SD 49.1 38.5 - 51.6 fL [facility] RDW-CV 15.0 12.1 - 15.4 % [facility] PLT 215 150 - 328 10*3/L [facility] MPV 10.3 9.8 - 13.0 fL [facility] NRBC/100 WBC 0.0 0.0 - 10.0 /100 WBCs [facility] NRBC x10^3 <0.01 10*3/L [facility] GRAN MAT (NEUT) 60.5 % [facility] IMM GRAN % 0.30 % [facility] LYMPH % 27.1 % [facility] MONO % 8.8 % [facility] EOS % 2.7 % [facility] BASO % 0.6 % [facility] GRAN MAT 3.84 1.99 - 6.95 10*3/uL [facility] x10^3(ANC) [facility] IMM GRAN x10^3 <0.03 0.00 - 0.06 10*3/uL [facility] LYMPH x10^3 1.72 1.09 - 3.23 10*3/uL [facility] MONO x10^3 0.56 0.36 - 1.02 10*3/uL [facility] EOS x10^3 0.17 0.06 - 0.53 10*3/uL [facility] BASO x10^3 0.04 0.01 - 0.09 10*3/uL [facility] Specimen Blood Performing Organization Address City/State/Zipcode Phone Number [facility] CLIA: [id number], [address] [place] [address] [facility] * PROTHROMBIN TIME / INR (09/29/2019 11:11 AM DENSITOMETRIST) PROTIME PATIENT 16.8 (H) 10.1 - 12.6 Seconds [facility] INR 1.5Comment: Normal INR <1.1; [facility] Warfarin Therapeutic range 2.0 [facility] to 3.0 or 2.5 to 3.5, [facility] depending upon the indications. Specimen Blood Performing Organization Address City/State/Zipcode Phone Number [facility] CLIA: [id number], [address] [place] [address] [facility] * BASIC METABOLIC PANEL (NA, K, CL, CO2, GLUCOSE, BUN, CREATININE, CA) (09/29/2019 11:11 AM DENSITOMETRIST) NA 138 135 - 145 mmol/L [facility] K 3.8 3.5 - 5.0 mmol/L [facility] CL 97 (L) 98 - 108 mmol/L [facility] CO2 TOTAL 30 23 - 31 mmol/L [facility] AGAP 11 2 - 16 [facility] BUN 18 7 - 23 mg/dL [facility] GLUCOSE 140 (H) 70 - 110 mg/dL [facility] CREATININE 5.77 (H) 0.60 - 1.25 mg/dL [facility] CALCIUM 8.9 8.6 - 10.6 mg/dL [facility] eGFR 10.3 mL/min/1.73m2 [facility] Calculation [facility] (Non-[facility] Ghanaian) eGFR 12.5 mL/min/1.73m2 [facility] Calculation [facility] ( [facility] Ghanaian) Specimen Blood Narrative Performed At Association of Glomerular Filtration Rate (GFR) and Staging of Kidney Disease* [facility] + + + + SERVICES- [facility] | GFR (mL/min/1.73 m2) | With Kidney Damage | Without Kidney Damage CAMPUS + + + + | >90 | Stage one | Normal + + + + | 60-89 | Stage two | Decreased GFR + + + + | 30-59 | Stage three | Stage three + + + + | 15-29 | Stage four | Stage four + + + + | <15 (or dialysis) | Stage five | Stage five + + + + *Each stage assumes the associated GFR level has been in effect for at least three months. Stages 1 to 5, with or without kidney disease, indicate chronic kidney disease. Notes: Determination of stages one and two (with eGFR >59mL/min/1.73 m2) requires estimation of kidney damage for at least three months as defined by structural or functional abnormalities of the kidney, manifested by either: Pathological abnormalities or Markers of kidney damage (including abnormalities in the composition of the blood or urine or abnormalities in imaging tests). Performing Organization Address City/State/Zipcode Phone Number [facility] CLIA: [id number], [address] [place] [address] SERVICES-[facility] * Type and Screen - ONCE Routine (09/29/2019 11:09 AM DENSITOMETRIST) ABO & RH B Positive LAB Comment: Performed at [facility] Laboratory Services - [facility] Blood Bank [address] [place] [phone] Toll Free: [phone] CLIA No. [id number] IAT Negative LAB Comment: Performed at [facility] Laboratory Services - [facility] Blood Bank [address] [place] [phone] Toll Free: [phone] CLIA No. [id number] Specimen Blood - VENOUS Performing Organization Address City/State/Zipcode Phone Number BLD LAB documented in this encounter Visit Diagnoses Diagnosis S/P ablation of atrial fibrillation - Primary Other postprocedural status Paroxysmal atrial fibrillation Atrial fibrillation H/O atrioventricular mamie ablation Personal history of surgery to heart and great vessels, presenting hazards to health documented in this encounter Administered Medications Action Date Dose Rate Site Medication Order MAR Action 09/30/2019 11:06 AM DENSITOMETRIST 650 mg acetaminophen (TYLENOL) tablet 650 mg Given 650 mg, Oral, Q6HPRN, Starting Sat09/29/19 at 1533, Until Discontinued, Routine, Pain (scale 1-3) 650 mg Given 09/29/2019 9:09 PM DENSITOMETRIST acetaminophen-codeine (TYLENOL #3) 300-30 mg tablet 1 tablet 1 tablet, Oral, Q6HPRN, Starting Sat09/29/19 at 1533, Until Debbi 10/01/19 at 1532, Routine, Pain (scale 4-6) 09/30/2019 9:07 AM DENSITOMETRIST 200 mg amiodarone (PACERONE) tablet 200 mg Given 200 mg, Oral, BID, First dose on Sat09/29/19 at 2000, Until Discontinued, Routine 200 mg Given 09/29/2019 9:00 PM DENSITOMETRIST 09/30/2019 9:05 AM DENSITOMETRIST 5 mg amLODIPine (NORVASC) tablet 5 mg Given 5 mg, Oral, DAILY, First dose on Sat09/30/19 at 0900, Until Discontinued, Routine 09/30/2019 9:05 AM DENSITOMETRIST 5 mg apixaban (ELIQUIS) tablet 5 mg Given 5 mg, Oral, BID, First dose on Sat09/29/19 at 2000, Until Discontinued, Routine 5 mg Given 09/29/2019 9:02 PM DENSITOMETRIST 09/30/2019 9:04 AM DENSITOMETRIST 0.1 mg cloNIDine (CATAPRES) tablet 0.1 mg Given 0.1 mg, Oral, BID, First dose on Sat09/29/19 at 2000, Until Discontinued, Routine 0.1 mg Given 09/29/2019 9:00 PM DENSITOMETRIST 09/29/2019 6:23 PM DENSITOMETRIST 0.1 mg cloNIDine (CATAPRES) tablet 0.1 mg Given 0.1 mg, Oral, Q8HPRN, Starting Sat09/29/19 at 1756, Until Discontinued, Routine, SBP>169 docusate (COLACE) capsule 100 mg 100 mg, Oral, DAILY, First dose on Sat09/30/19 at 0900, Until Discontinued, Routine 09/30/2019 9:04 AM DENSITOMETRIST 40 mg furosemide (LASIX) tablet 40 mg Given 40 mg, Oral, DAILY, First dose on Sat09/30/19 at 0900, Until Discontinued, Routine 09/30/2019 9:04 AM DENSITOMETRIST 25 mg metoprolol succinate XL (TOPROL XL) Given tablet 25 mg 25 mg, Oral, DAILY, First dose on Sat09/30/19 at 0900, Until Discontinued, Routine morpHINE injection 2 mg 2 mg, Slow IV Push, Q4HPRN, Starting Sat09/29/19 at 1533, Until Discontinued, Routine, Pain (scale 7-10) 09/30/2019 9:04 AM DENSITOMETRIST 20 mg omeprazole (PRILOSEC) capsule 20 mg Given 20 mg, Oral, DAILY, First dose on Sat09/30/19 at 0900, Until Discontinued, Routine ondansetron (ZOFRAN (PF)) injection 4 mg 4 mg, Slow IV Push, Q6HPRN, Starting Sat09/29/19 at 1536, Until Discontinued, Routine, Nausea and Vomiting (N/V) 09/30/2019 4:42 PM DENSITOMETRIST 800 mg sevelamer (RENVELA) tablet 800 mg Given 800 mg, Oral, TID MEALS, First dose on Sat09/29/19 at 1700, Until Discontinued, Routine 800 mg Given 09/30/2019 9:04 AM DENSITOMETRIST 800 mg Given 09/29/2019 6:23 PM DENSITOMETRIST 09/30/2019 9:04 AM DENSITOMETRIST 650 mg sodium bicarbonate (ANTACID (SODIUM Given BICARBONATE)) tablet 650 mg 650 mg, Oral, BID, First dose on Sat09/29/19 at 2000, Until Discontinued 650 mg Given 09/29/2019 9:00 PM DENSITOMETRIST 09/30/2019 9:07 AM DENSITOMETRIST 1,000 mg sucralfate (CARAFATE) 100 mg/mL Given suspension 1,000 mg 1,000 mg (1 g), Oral, BID, First dose on Sat09/29/19 at 2000, Until Discontinued, Routine 1,000 mg Given 09/29/2019 9:00 PM DENSITOMETRIST documented in this encounter Insurance Type Payer Benefit Subscriber ID Effective Phone Address Plan / Dates Group Medicare MEDICARE MEDICARE xxxxxxxxxxx 2014-P [phone] [address] resent [id number] [place] [address] HMO/PPO/POS [facility] [id number] 2019-P HEALTHCARE resent PPO documented as of this encounter"
[2019-12-23 16:24] LABS: BASOPHILS % 0.3 % (0.0-1.0); EOSINOPHILS % 0.6 % (0.0-6.0); HEMATOCRIT 26.7 % (38.2-49.6); HEMOGLOBIN 8.6 g/dL (14.0-18.0); LYMPHOCYTES # (AUTO) 0.6 (1.0-3.2); LYMPHOCYTES % 9.9 % (18.0-39.1); MEAN CORPUSCULAR HEMOGLOBIN 27.8 pg (28-32); MEAN CORPUSCULAR HGB CONC 32.2 g/dL (31-35); MEAN CORPUSCULAR VOLUME 86.4 fL (81-99); MONOCYTES # (AUTO) 0.6 (0.2-0.8); MONOCYTES % 9.4 % (4.4-11.3); NEUTROPHILS % 79.3 % (38.7-80.0); PLATELET COUNT 217 x10e3/uL (140-360); RED BLOOD COUNT 3.09 x10e6/uL (4.3-5.7); RED CELL DISTRIBUTION WIDTH 14.7 % (11.7-14.4)
[2019-12-23 16:39] LABS: ALBUMIN 2.4 g/dL (3.5-5.0); ALBUMIN/GLOBULIN RATIO 0.6 (0.8-2.0); ANION GAP 14.4 mmol/L (8-16); CALCIUM 9.2 mg/dL (8.4-10.2); CREATININE, SERUM 4.46 mg/dL (0.72-1.25); POTASSIUM 3.4 mmol/L (3.5-5.1)
[2019-12-23 16:46] LABS: CREATINE KINASE MB 1.9 ng/mL (0-5.0)
--- NOTE | 2019-12-23 18:01 | Diagnostic Imaging Report ---
EXAMINATION: CHEST SINGLE (PORTABLE) INDICATION: ^ERMD ORDER ^Y COMPARISON: Chest radiograph 08/17/2019 FINDINGS: AP view TUBES and LINES: 2-lead pacemaker device overlying the right upper chest with leads overlying the right atrial appendage and right ventricle, unchanged. LUNGS: Lungs are well inflated. Diffuse bilateral mainly central alveolar opacities. PLEURA: No pleural effusion or pneumothorax. HEART AND MEDIASTINUM: Moderate enlargement of the cardiac silhouette, stable. BONES AND SOFT TISSUES: No acute osseous lesion. Soft tissues are unremarkable. UPPER ABDOMEN: No free air under the diaphragm. IMPRESSION: Interval worsening diffuse bilateral mainly central alveolar opacities suggestive of pulmonary edema. Superimposed viral infection cannot be excluded. Recommend follow-up chest x-ray after diuresis. Signed by: Dr. Catrachita Burnette M.D. on 12/23/2019 5:58 PM
[2019-12-23] MEDS ORDERED: FUROSEMIDE INJ 10 MG/ML 4 ML VIAL IV ONE (18:15)
[2019-12-23] MEDS ORDERED: ONDANSETRON HCL INJ 2MG/ML 2ML 2 MG/ML VIAL IV PRN ×2 (18:45→21:15)
[2019-12-23] MEDS ORDERED: ACETAMINOPHEN 325 MG TAB PO PRN (21:15)
[2019-12-23] MEDS ORDERED: HYDRALAZINE HCL 20 MG/ML VIAL IV PRN (21:15)
[2019-12-23 22:15] VITALS: BP 142/69
--- NOTE | 2019-12-23 22:15 | NUR ---
patient received to room 200 via stretcher from the emergency room. vss. no c/o pain noted. respirations even and unlabored. blood sugar 130. pm snack given. patient instructed to call for assistance when needed.
[2019-12-24] VITALS (8 sets, daily range): BP systolic 123–163; BP diastolic 67–83
--- NOTE | 2019-12-24 01:00 | NUR ---
second set of cardiac markers drawn and sent to lab at this time.
[2019-12-24 01:37] LABS: CREATINE KINASE 48 IU/L (30-200)
[2019-12-24 05:25] LABS: BASOPHILS % 0.5 % (0.0-1.0); EOSINOPHILS # (AUTO) 0.1 (0.0-0.4); EOSINOPHILS % 2.3 % (0.0-6.0); HEMATOCRIT 26.1 % (38.2-49.6); LYMPHOCYTES # (AUTO) 1.1 (1.0-3.2); LYMPHOCYTES % 20.2 % (18.0-39.1); MEAN CORPUSCULAR HGB CONC 30.7 g/dL (31-35); MEAN CORPUSCULAR VOLUME 88.2 fL (81-99); MONOCYTES # (AUTO) 0.5 (0.2-0.8); MONOCYTES % 9.1 % (4.4-11.3); NEUTROPHILS # (AUTO) 3.8 (2.1-6.9); NEUTROPHILS % 67.5 % (38.7-80.0); PLATELET COUNT 230 x10e3/uL (140-360); RED BLOOD COUNT 2.96 x10e6/uL (4.3-5.7); RED CELL DISTRIBUTION WIDTH 14.7 % (11.7-14.4)
[2019-12-24] MEDS ORDERED: AMIODARONE HCL200 MG PO (06:06)
[2019-12-24] MEDS ORDERED: ZYRTEC10 M3 PO (06:07)
[2019-12-24] MEDS ORDERED: NORVASC5 MG PO (06:08)
[2019-12-24] MEDS ORDERED: CLONIDINE HCL0.1 MG PO (06:11)
[2019-12-24] MEDS ORDERED: AMOXICILLIN500 MG PO (06:12)
[2019-12-24] MEDS ORDERED: SODIUM BICARBO650 MG PO (06:14)
[2019-12-24] MEDS: APIXABAN 5 MG TABLET PO SCH ×2 (07:56→15:39)
[2019-12-24] MEDS: SEVELAMER CARBONATE 800 MG TAB PO SCH ×3 (07:56→15:39)
[2019-12-24] MEDS: FAMOTIDINE 20 MG TAB PO SCH ×2 (07:56→15:39)
[2019-12-24 08:03] LABS: CREATINE KINASE MB 1.1 ng/mL (0-5.0)
[2019-12-24 08:18] LABS: ALBUMIN 2.3 g/dL (3.5-5.0); ALBUMIN/GLOBULIN RATIO 0.6 (0.8-2.0); ANION GAP 15.5 mmol/L (8-16); CALCIUM 9.3 mg/dL (8.4-10.2); CREATININE, SERUM 5.62 mg/dL (0.72-1.25); POTASSIUM 3.5 mmol/L (3.5-5.1)
[2019-12-24] MEDS ORDERED: BENZONATATE100 MG PO (10:09)
[2019-12-24] MEDS ORDERED: METOPROLOL SUCC25 MG PO (10:12)
[2019-12-24] MEDS ORDERED: AMLODIPINE BESYLATE 5 MG TAB PO SCH (10:15)
[2019-12-24] MEDS ORDERED: LORATADINE 10 MG TAB PO SCH (10:15)
[2019-12-24] MEDS: AMIODARONE HCL 200 MG TAB PO SCH ×2 (11:53→15:39)
--- NOTE | 2019-12-24 13:01 | Diagnostic Imaging Report ---
EXAM: CHEST SINGLE (PORTABLE) DATE: 12/24/2019 9:40 AM INDICATION: Pulmonary edema COMPARISON: 12/23/2019 FINDINGS: Right sided pacing device identified in stable position. The trachea is midline. Again identified are diffusely increased bilateral interstitial airspace opacities. There is no evidence for lobar consolidation, pneumothorax, or significant pleural effusion. The cardiac silhouette remains enlarged. No acute osseous abnormality is identified. IMPRESSION: No significant interval change from 12/23/2019. Stable appearing diffusely increased interstitial and airspace opacities which are nonspecific but can be seen in the setting of edema. An atypical/viral infectious process could have a similar appearance. Signed by: Dr. Yoav Carver MD on 12/24/2019 12:58 PM
--- NOTE | 2019-12-24 14:22 | NUR ---
Pulmonary [id number] Rx as fluid overload Phlegm, URI vs mild LRTI? Thanks Dr Trevizo
[2019-12-24 15:12] LABS: CREATINE KINASE MB 1.4 ng/mL (0-5.0)
--- NOTE | 2019-12-24 15:21 | Consultation ---
DATE OF CONSULTATION: 12/24/2019 Nephrology Consultation REASON FOR CONSULTATION: End-stage kidney disease. The patient needs hemodialysis. HISTORY OF PRESENT ILLNESS: The patient is a 53-year-old male with diabetes mellitus, hypertension, and end-stage kidney disease, who dialyzes at [facility] in [place] every Saturday, Saturday, and Fridays. He did have a routine dialysis treatment yesterday with removal of what he describes as about 1.5 L. He went home and progressively became short of breath until he was forced to come to the ER last night with the same complaint. He denies having had any fever, cough, or sputum production or chest pain. In the ER, chest x-ray was consistent with bilateral alveolar infiltrates suggestive of fluid overload and pulmonary edema. He has since been admitted and is awaiting dialysis and ultrafiltration today. The patient claims to be compliant with all of his medication. He usually dialyzes three times a week regularly. Denies any abdominal or flank pain, nausea, vomiting, diarrhea, dysuria, or gross hematuria. PAST MEDICAL HISTORY: Congestive heart failure, cardiac arrest, anemia, renal failure, end-stage kidney disease on hemodialysis, diabetes mellitus. MEDICATIONS: Reviewed in NOV. SOCIAL HISTORY: The patient denies any substance abuse. REVIEW OF SYSTEMS: Negative except as noted in HPI above. PHYSICAL EXAMINATION: GENERAL: The patient is alert and oriented x3. Appears in no acute distress at this time. VITAL SIGNS: Stable. Blood pressure 163/76, afebrile. Pulse is 78 per minute, respirations 18 per minute, pulse oximetry 97%. HEENT: Normocephalic, atraumatic head. External ocular movements intact. NECK: Supple without jugular venous distention. RESPIRATORY AND CARDIAC: Exams were not performed by me due to COVID endemic. ABDOMEN: Appears nondistended. EXTREMITIES: Without pitting edema or cyanosis. NEUROLOGIC: He is alert and oriented x3. No obvious focal deficit. Chest x-ray, per report, bilateral alveolar infiltrates. LABORATORY DATA: Reviewed. White count is normal. Hemoglobin 8.6 on admission, down to 8 today. Serum chemistries significant for creatinine of 5.6, BUN 26, potassium 3.5, sodium 134, bicarb 29, glucose 116, calcium 9.3, normal liver function. Initial troponin 0.029. Serum albumin 2.3. IMPRESSION: 1. Acute shortness of breath associated with bilateral alveolar infiltrates on chest x-ray without fever or significant cough. Appears most consistent with cardiogenic pulmonary edema and fluid overload. However, acute coronary syndrome is being ruled out by serial troponins. 2. Hypertension, fair control on current medications. 3. Anemia secondary to chronic kidney disease. 4. Renal bone mineral disease, on sevelamer as phosphate binder. Serum calcium is normal. RECOMMENDATIONS: 1. We will attempt isolated ultrafiltration this afternoon targeting maximally tolerated fluid in the range of 3-4 L. 2. May continue current blood pressure medication and phosphate binders. 3. Serial troponins as ordered by admitting physician. Thank you for this consultation. MD JEANNETTE Quinonez/ROBER /[id number]
[2019-12-24] MEDS ORDERED: SODIUM CHLORIDE 0.9% 1000ML 2,000 ML ONE (16:17)
--- NOTE | 2019-12-24 17:00 | NUR ---
Nutrition Screen Note RD Recommendation for Physician: -Continue renal diet Plan of Care: RD following, monitoring for tolerance and adequacy Nutrition reason for involvement: Diagnosis - CHF, ESRD Primary Diagnose(s): CHF, ESRD, volume overload PMH: ESRD, diabetes, HTN Ht: 69 in Wt:234 lb BMI: 34.6 kg/m2 IBW:[address] Assessment: (12/24/19) Chart reviewed. Labs and meds reviewed. Pt is a 53 year old male admitted with CHF, ESRD, and volume overload. Attempted to call pt, but he did not answer. It is recorded that pt consumed 100% of breakfast and lunch today. Per weight history, pt weighed 243-249 lbs on previous admission in May 2019 and currently has a weight of 234 lbs in chart. This is considered non-significant weight loss. Will continue to monitor. Current Diet: renal diet Malnutrition Evaluation (12/24/19) The patient does not meet criteria for a specified degree of malnutrition at this time. Will re-evaluate at follow-up as appropriate. Diet Education Needs Assessment: RD is available for diet education as needed Nutrition Care Level: low Signed: Cammy Gabriel, RD, LD
[2019-12-24] MEDS ORDERED: DOXYCYCLINE HYCLATE TABLET 100 MG TAB PO SCH (18:00)
--- NOTE | 2019-12-24 18:32 | Consultation ---
DATE OF CONSULTATION: 12/24/2019 Pulmonary Medicine Consult CHIEF COMPLAINT: Shortness of breath. HISTORY OF PRESENT ILLNESS: Mr. Duke is a pleasant 53-year-old gentleman with shortness of breath. The patient presented on December 23, 2019. He had some associated cough with some phlegm. No fevers, however. Onset for a few days was pattern of progression. Therefore, he came to the emergency room. In the emergency room, it was noted chest x-ray with interval worsening diffuse bilateral, mostly central alveolar opacities, but a pattern of moderate edema versus pneumonia noted. BNP level is 1300. The patient is recommended for hospitalization and further aggressive management. The patient is a dialysis patient, however, the patient claims he undergoes rigorous dialysis without issue with good clearance of fluid. The patient without significant lung disease in past. PAST MEDICAL HISTORY: Diabetes, hypertension, end-stage renal disease, chronic anemia, peripheral vascular disease, history of toe amputation, history of cardiac arrest with full recovery, history of heart catheterization with no obstructive CAD. MEDICATIONS: Medication list reviewed per the chart record. ALLERGIES: NO KNOWN DRUG ALLERGIES. SOCIAL HISTORY: No smoking. No drinking. No drugs. He gets out three days a week for dialysis. He does not go anywhere he states. 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 FAMILY HISTORY: Noncontributory. REVIEW OF SYSTEMS: GENERAL: No weight changes. OPHTHALMOLOGIC: No floaters. ENT: No mouth ulcers. ENDOCRINE: No known thyroid disease. PULMONARY: No asthma. IMMUNOLOGIC: No allergies. CARDIAC: No recent TN. GI: No constipation. : No blood in urine. NEUROLOGIC: No seizures. PSYCHIATRIC: No depression. DERMATOLOGIC: No rash. OBJECTIVE: VITAL SIGNS: Afebrile. Vital signs noted, reviewed per the chart record. GENERAL: In no acute distress, in bed, only mild increased work of breathing. HEENT: Normocephalic, atraumatic. NECK: Supple. Throat midline. LUNGS: Bilateral air entry, decreased breath sounds at bases. CARDIOVASCULAR: S1, S2. No murmurs, rubs, or gallops. ABDOMEN: Soft, nontender, mild obese. INTEGUMENT: No rash or purpura. EXTREMITIES: No clubbing, no cyanosis, no edema. INTEGUMENT: No rash. LABORATORY DATA: Potassium 3.5, BUN 26, and creatinine 5.6. White count 5.6, hematocrit 26, 230 platelets. IMPRESSION AND PLAN: 1. Abnormal chest radiography, fluid overload component. BNP 1300. 2. Abnormal chest radiography, less likely pneumonia, but not ruled out. 3. End-stage renal disease, on dialysis. 4. Severe hypoalbuminemia, 2.3 albumin. 5. Mild hypergammaglobulinemia. 6. Hypertension. 7. Diabetes. 8. Moderate anemia. 9. History of peripheral vascular disease, status post toe amputation. Nephrology consulted. PLAN: For the dialysis as tolerated. Repeat chest x-ray tomorrow. Consideration if ultrasonography needed after chest x-ray. For now, pleura appears to not have sizable effusions. Low threshold for antibiotics, so continue serial close followup. Mobilize the patient and facilitate expectoration. With increased phlegm, we will give some either tetracyclines or macrolide antibiotic for short course. Thank you very much, Dr. Trevizo for this consult. Please call for questions. MD MARLENE Mcallister/ROBER /[id number]
--- NOTE | 2019-12-24 19:00 | NUR ---
patient received awake, alert and on hemodialysis treatment. piv out and clean dressing applied. iv to be replaced at later time. no c/o pain noted. pm assessment complete. patient instructed to call for assistance when needed.
--- NOTE | 2019-12-24 20:40 | NUR ---
hd treatment complete. bp 157/84 hr 87 rr 20 temp 99.4. Patient states, " I'm ready to go home. My renal doctor said i could go home when i finished dialysis. " call placed to Marah Freeman NP. No discharge order given at this time. Se said, " If he leaves it will have to be against medical advise. I'm not discharging him. " Patient informed of this. Patient very upset. wet pour supervisor called to speak with him. Patient unwilling to change his mind and will leave ama.
--- NOTE | 2019-12-24 21:57 | NUR ---
patient discharged against medical advise. ama form signed and placed on patients chart.
[2020-01-07 12:46] LABS: ABG PCO2 40 mmHg (35-45)
[2020-01-07 12:47] LABS: ABG HCO3 31 mmol/L (21-29)
[2020-01-08 09:31] LABS: ABG PO2 70 mmHg (80-90)
== END 2019-12-24 21:57 | disposition left against medical advice (07) | DRG 291 ==
LOC: ER 15:37 → ERHOLD 18:39 → MED/SURG2 21:47
PROVIDERS: ADMIT Internal Medicine; ATTEND Internal Medicine
PROC: 5A1D70Z Performance of Urinary Filtration, Intermittent, Less than 6 Hours Per Day (ICD-10-PCS; principal; 2019-12-24)
DX: I13.2 Hypertensive heart and chronic kidney disease with heart failure and with stage 5 chronic kidney disease, or end stage renal disease (principal); N18.6 End stage renal disease; I50.23 Acute on chronic systolic (congestive) heart failure; J81.1 Chronic pulmonary edema; I48.91 Unspecified atrial fibrillation; Z79.01 Long term (current) use of anticoagulants; E11.22 Type 2 diabetes mellitus with diabetic chronic kidney disease; Z99.2 Dependence on renal dialysis; R09.02 Hypoxemia; D63.1 Anemia in chronic kidney disease; E66.01 Morbid (severe) obesity due to excess calories; Z68.34 Body mass index [BMI] 34.0-34.9, adult; E88.09 Other disorders of plasma-protein metabolism, not elsewhere classified; E11.51 Type 2 diabetes mellitus with diabetic peripheral angiopathy without gangrene; Z79.4 Long term (current) use of insulin; D89.2 Hypergammaglobulinemia, unspecified; N25.0 Renal osteodystrophy; Z86.74 Personal history of sudden cardiac arrest; Z89.429 Acquired absence of other toe(s), unspecified side
CPT/HCPCS: 36415; 36600; 71045; 80053; 82550; 82553; 82805; 82948; 83036; 83880; 84443; 84484; 85025; 93005; 93306; 99284; J1940; J2405; J7030

== ENCOUNTER → 2020-05-19 | Outpatient (CLI) | payer MEDICARE, OTHER ==
[~2020-05-19] MED LIST changes: +AMIODARONE HCL200 MG PO; +AMOXICILLIN500 MG PO; +BENZONATATE100 MG PO; +METOPROLOL SUCC25 MG PO; +NORVASC5 MG PO; +PERFLUTREN LIPID MICROSPHERES 2 ML VIAL IV ONE; +ZYRTEC10 M3 PO
== END ==
LOC: RAD 05-11 13:41
PROVIDERS: ATTEND Internal Medicine Cardiovascular Disease
DX: I50.22 Chronic systolic (congestive) heart failure (principal)
CPT/HCPCS: 93306; Q9957

== ENCOUNTER 2020-10-02 09:03 | Emergency (ER) | payer MEDICARE, OTHER ==
[~2020-10-02] VITALS: Ht 175.3 cm; Wt 99.8 kg
[~2020-10-02 09:03] MED LIST changes: -PERFLUTREN LIPID MICROSPHERES 2 ML VIAL IV ONE
== END 2020-10-02 09:25 | disposition home or self-care (01) ==
LOC: EDSEX 09:03 → ER 09:17
DX: J40 Bronchitis, not specified as acute or chronic (principal); R05 Cough; I12.0 Hypertensive chronic kidney disease with stage 5 chronic kidney disease or end stage renal disease; E11.22 Type 2 diabetes mellitus with diabetic chronic kidney disease; N18.6 End stage renal disease; Z99.2 Dependence on renal dialysis; I50.9 Heart failure, unspecified; I25.2 Old myocardial infarction; Z95.810 Presence of automatic (implantable) cardiac defibrillator
CPT/HCPCS: 99282

== ENCOUNTER → 2021-04-14 | Day surgery (SDC) | payer MEDICARE, OTHER ==
[~2021-04-14] MED LIST changes: +BASAGLAR K100 UNIT/1 SC; +BUPIVACAINE HCL 0.5% INJ 30 ML VIAL INJ ONE; +CEPHALEXIN500 MG PO; +DESFLURANE 240 ML BTL INH ONE; +DEXAMETHASONE SOD PHOS INJ 4 MG/ML VIAL ONE; +EPHEDRINE SULFATE INJ 50 MG/ML VIAL ONE; +HUMALOG MI100 UNIT/2 SQ; +LIDOCAINE HCL 2% LOCAL INJ 5 ML SDV VIAL INJ ONE; +LISINOPRIL10 MG PO; +ONDANSETRON HCL INJ 2MG/ML 2ML 2 MG/ML VIAL ONE; +POVIDONE IODINE 0.05% 0.05 % ML PO ONE; +PROPOFOL IV EMULSION 10 MG/ML 20 ML VIAL ONE; +SODIUM CHLORIDE 0.9% 500ML 500 ML ONE
[2021-04-14] MEDS: SODIUM CHLORIDE 0.9% 50ML 100 ML ONE (07:20)
[2021-04-14 07:30] LABS: BASOPHILS # (AUTO) 0.1 (0.0-0.1); BASOPHILS % 0.8 % (0.0-1.0); EOSINOPHILS # (AUTO) 0.2 (0.0-0.4); EOSINOPHILS % 2.9 % (0.0-6.0); HEMATOCRIT 34.9 % (38.2-49.6); HEMOGLOBIN 11.3 g/dL (14.0-18.0); LYMPHOCYTES # (AUTO) 2.1 (1.0-3.2); LYMPHOCYTES % 26.6 % (18.0-39.1); MEAN CORPUSCULAR HGB CONC 32.4 g/dL (31-35); MEAN CORPUSCULAR VOLUME 95.6 fL (81-99); MONOCYTES # (AUTO) 0.6 (0.2-0.8); MONOCYTES % 7.1 % (4.4-11.3); NEUTROPHILS % 62.2 % (38.7-80.0); PLATELET COUNT 227 x10e3/uL (140-360); RED BLOOD COUNT 3.65 x10e6/uL (4.3-5.7); RED CELL DISTRIBUTION WIDTH 15.2 % (11.7-14.4)
[2021-04-14 07:54] LABS: PROTHROMBIN TIME 13.4 seconds (11.9-14.5)
[2021-04-14 07:55] LABS: PARTIAL THROMBOPLASTIN TIME 33.2 seconds (23.8-35.5)
[2021-04-14 08:02] LABS: ANION GAP 22.3 mmol/L (8-16); CALCIUM 9.6 mg/dL (8.4-10.2); CREATININE, SERUM 9.94 mg/dL (0.72-1.25); POTASSIUM 4.3 mmol/L (3.5-5.1)
[2021-04-14 10:40] VITALS: BP 127/73
== END | disposition home or self-care (01) ==
LOC: OR 07:00
PROVIDERS: ATTEND Podiatrist Foot Surgery
DX: E11.69 Type 2 diabetes mellitus with other specified complication (principal); L89.894 Pressure ulcer of other site, stage 4; M86.8X7 Other osteomyelitis, ankle and foot; L03.032 Cellulitis of left toe; M79.671 Pain in right foot; I10 Essential (primary) hypertension; I25.10 Atherosclerotic heart disease of native coronary artery without angina pectoris; Z95.0 Presence of cardiac pacemaker; Z87.891 Personal history of nicotine dependence; Z01.812 Encounter for preprocedural laboratory examination; I73.9 Peripheral vascular disease, unspecified; I48.0 Paroxysmal atrial fibrillation; I50.22 Chronic systolic (congestive) heart failure; E78.5 Hyperlipidemia, unspecified; Z79.4 Long term (current) use of insulin
CPT/HCPCS: 28820; 36415; 80048; 82948; 85025; 85610; 85730; 88304; 88311; J0690; J2001; J2405; J2704; J7040; 88305; J1100

== ENCOUNTER 2022-05-14 10:46 | Emergency (ER) | payer MEDICARE, OTHER ==
[~2022-05-14] VITALS: Ht 175.3 cm; Wt 99.8 kg
[~2022-05-14 10:46] MED LIST changes: -BUPIVACAINE HCL 0.5% INJ 30 ML VIAL INJ ONE; -DESFLURANE 240 ML BTL INH ONE; -DEXAMETHASONE SOD PHOS INJ 4 MG/ML VIAL ONE; -EPHEDRINE SULFATE INJ 50 MG/ML VIAL ONE; -LIDOCAINE HCL 2% LOCAL INJ 5 ML SDV VIAL INJ ONE; -ONDANSETRON HCL INJ 2MG/ML 2ML 2 MG/ML VIAL ONE; -POVIDONE IODINE 0.05% 0.05 % ML PO ONE; -PROPOFOL IV EMULSION 10 MG/ML 20 ML VIAL ONE; -SODIUM CHLORIDE 0.9% 500ML 500 ML ONE
[2022-05-14 11:51] LABS: BASOPHILS % 0.5 % (0.0-1.0); EOSINOPHILS # (AUTO) 0.1 (0.0-0.4); EOSINOPHILS % 1.7 % (0.0-6.0); HEMATOCRIT 33.1 % (38.2-49.6); HEMOGLOBIN 11.2 g/dL (14.0-18.0); LYMPHOCYTES # (AUTO) 1.2 (1.0-3.2); LYMPHOCYTES % 20.1 % (18.0-39.1); MEAN CORPUSCULAR HEMOGLOBIN 32.3 pg (28-32); MEAN CORPUSCULAR HGB CONC 33.8 g/dL (31-35); MEAN CORPUSCULAR VOLUME 95.4 fL (81-99); MONOCYTES # (AUTO) 0.5 (0.2-0.8); NEUTROPHILS # (AUTO) 4.2 (2.1-6.9); NEUTROPHILS % 69.4 % (38.7-80.0); PLATELET COUNT 220 x10e3/uL (140-360); RED BLOOD COUNT 3.47 x10e6/uL (4.3-5.7)
[2022-05-14 12:07] LABS: INR 1.01; PROTHROMBIN TIME 14.2 seconds (11.9-14.5)
[2022-05-14 12:08] LABS: PARTIAL THROMBOPLASTIN TIME 33.1 seconds (23.8-35.5)
[2022-05-14 12:14] LABS: ALBUMIN 3.8 g/dL (3.5-5.0); ANION GAP 18.8 mmol/L (8-16); CALCIUM 9.2 mg/dL (8.4-10.2); CREATININE, SERUM 3.87 mg/dL (0.72-1.25)
[2022-05-14 12:19] LABS: POTASSIUM 2.8 mmol/L (3.5-5.1)
[2022-05-14 12:21] LABS: CREATINE KINASE MB 4.6 ng/mL (0-5.0)
[2022-05-14] MEDS ORDERED: POTASSIUM CHLORIDE 20 MEQ TAB CR PO STA (12:53)
== END 2022-05-14 14:19 | disposition home or self-care (01) ==
LOC: ER 10:59
DX: R31.9 Hematuria, unspecified (principal); I12.0 Hypertensive chronic kidney disease with stage 5 chronic kidney disease or end stage renal disease; E13.22 Other specified diabetes mellitus with diabetic chronic kidney disease; E13.65 Other specified diabetes mellitus with hyperglycemia; N18.6 End stage renal disease; Z99.2 Dependence on renal dialysis; I50.9 Heart failure, unspecified; I25.2 Old myocardial infarction
CPT/HCPCS: 36415; 80053; 82550; 82553; 83690; 84484; 85025; 85610; 85730; 99284

== ENCOUNTER 2022-08-16 10:15 | Observation (INO) | payer MEDICARE, OTHER ==
[~2022-08-16] VITALS: Ht 175.3 cm; Wt 99.8 kg
[2022-08-16 11:02] LABS: BASOPHILS % 0.4 % (0.0-1.0); EOSINOPHILS # (AUTO) 0.1 (0.0-0.4); EOSINOPHILS % 1.3 % (0.0-6.0); HEMATOCRIT 38.9 % (38.2-49.6); HEMOGLOBIN 11.9 g/dL (14.0-18.0); MEAN CORPUSCULAR HEMOGLOBIN 30.7 pg (28-32); MEAN CORPUSCULAR HGB CONC 30.6 g/dL (31-35); MEAN CORPUSCULAR VOLUME 100.5 fL (81-99); MONOCYTES # (AUTO) 0.5 (0.2-0.8); MONOCYTES % 4.8 % (4.4-11.3); NEUTROPHILS # (AUTO) 8.6 (2.1-6.9); NEUTROPHILS % 83.2 % (38.7-80.0); PLATELET COUNT 240 x10e3/uL (140-360); RED BLOOD COUNT 3.87 x10e6/uL (4.3-5.7); RED CELL DISTRIBUTION WIDTH 13.3 % (11.7-14.4)
[2022-08-16 11:13] LABS: INR 1.25; PROTHROMBIN TIME 15.9 seconds (11.9-14.5)
[2022-08-16 11:14] LABS: PARTIAL THROMBOPLASTIN TIME 38.1 seconds (23.8-35.5)
[2022-08-16 11:16] LABS: ALBUMIN 4.3 g/dL (3.5-5.0); POTASSIUM 3.5 mmol/L (3.5-5.1)
[2022-08-16 11:35] LABS: ALBUMIN/GLOBULIN RATIO 1.2 (0.8-2.0); ANION GAP 19.5 mmol/L (8-16); CALCIUM 10.6 mg/dL (8.4-10.2); CREATININE, SERUM 5.71 mg/dL (0.72-1.25); MAGNESIUM 2.1 MG/DL (1.3-2.1)
[2022-08-16 11:57] LABS: CREATINE KINASE MB 3.6 ng/mL (0-5.0)
[2022-08-16] MEDS ORDERED: ONDANSETRON HCL INJ 2MG/ML 2ML 2 MG/ML VIAL IV PRN (12:15)
[2022-08-16] MEDS ORDERED: BENZONATATE100 MG PO (12:33)
[2022-08-16 18:27] LABS: CREATINE KINASE MB 2.2 ng/mL (0-5.0)
[2022-08-16 20:00] VITALS: BP 150/76
[2022-08-17] MEDS ORDERED: ELIQUIS5 MG PO (00:26)
[2022-08-17 01:13] VITALS: BP 153/78
[2022-08-17 03:37] LABS: CREATINE KINASE MB 1.1 ng/mL (0-5.0)
[2022-08-17 04:35] VITALS: BP 148/76
[2022-08-17 05:53] LABS: BASOPHILS # (AUTO) 0.1 (0.0-0.1); BASOPHILS % 0.8 % (0.0-1.0); EOSINOPHILS # (AUTO) 0.2 (0.0-0.4); EOSINOPHILS % 2.3 % (0.0-6.0); HEMATOCRIT 31.1 % (38.2-49.6); HEMOGLOBIN 10.1 g/dL (14.0-18.0); LYMPHOCYTES % 15.2 % (18.0-39.1); MEAN CORPUSCULAR HEMOGLOBIN 30.8 pg (28-32); MEAN CORPUSCULAR HGB CONC 32.5 g/dL (31-35); MEAN CORPUSCULAR VOLUME 94.8 fL (81-99); MONOCYTES # (AUTO) 0.5 (0.2-0.8); MONOCYTES % 8.2 % (4.4-11.3); NEUTROPHILS # (AUTO) 4.8 (2.1-6.9); NEUTROPHILS % 73.2 % (38.7-80.0); PLATELET COUNT 205 x10e3/uL (140-360); RED BLOOD COUNT 3.28 x10e6/uL (4.3-5.7); RED CELL DISTRIBUTION WIDTH 13.6 % (11.7-14.4)
[2022-08-17 06:40] LABS: ALBUMIN 3.4 g/dL (3.5-5.0); ANION GAP 15.5 mmol/L (8-16); CREATININE, SERUM 7.35 mg/dL (0.72-1.25); POTASSIUM 3.5 mmol/L (3.5-5.1)
[2022-08-17 07:02] LABS: CREATINE KINASE MB 1.5 ng/mL (0-5.0)
[2022-08-17] MEDS ORDERED: SODIUM CHLORIDE 0.9% 1000ML 2,000 ML ONE (07:55)
[2022-08-17 08:29] VITALS: BP 148/77
[2022-08-17 08:50] VITALS: BP 148/77
[2022-08-17 12:05] VITALS: BP 148/78
[2022-08-17] MEDS ORDERED: COLACE100 MG/10 PO (13:17)
[2022-08-17] MEDS ORDERED: ONDANSETRON HCL 4 MG ORAL DISINTEGRATING TAB PO PRN (13:30)
== END 2022-08-17 13:48 | disposition home or self-care (01) ==
LOC: ER 10:35 → ERHOLD 12:15 → MED/SURG2 20:41
PROVIDERS: ADMIT Internal Medicine; ATTEND Internal Medicine
DX: E87.70 Fluid overload, unspecified (principal); I13.2 Hypertensive heart and chronic kidney disease with heart failure and with stage 5 chronic kidney disease, or end stage renal disease; I50.9 Heart failure, unspecified; N18.6 End stage renal disease; E11.22 Type 2 diabetes mellitus with diabetic chronic kidney disease; I25.2 Old myocardial infarction; Z89.422 Acquired absence of other left toe(s); Z20.822 Contact with and (suspected) exposure to COVID-19; Z95.810 Presence of automatic (implantable) cardiac defibrillator; Z99.2 Dependence on renal dialysis; D63.1 Anemia in chronic kidney disease; Z79.4 Long term (current) use of insulin
CPT/HCPCS: 36415 ×2; 71045; 80053 ×2; 82550 ×2; 82553 ×2; 82948 ×2; 83735; 83880; 84484 ×2; 85025 ×2; 85610; 85730; 90935; 93005; 96365; 99284; G0378 ×2; J7030; U0002

== ENCOUNTER 2023-02-12 08:12 | Inpatient (IN) | payer MEDICARE, OTHER ==
[~2023-02-12] VITALS: Ht 175.3 cm; Wt 99.8 kg
[2023-02-12] VITALS (11 sets, daily range): BP systolic 83–119; BP diastolic 49–69; PULSE 59–98; RESP 18–26; TEMP 98.3–99.4; O2SAT 94–100
[~2023-02-12 08:12] MED LIST changes: +COLACE100 MG/10 PO
[2023-02-12] MEDS ORDERED: CEFTRIAXONE 1 GM VIAL IV SCH (08:30)
[2023-02-12 08:49] LABS: BASOPHILS % 0.2 % (0.0-1.0); HEMATOCRIT 34.3 % (38.2-49.6); LYMPHOCYTES # (AUTO) 0.2 (1.0-3.2); LYMPHOCYTES % 2.6 % (18.0-39.1); MEAN CORPUSCULAR HEMOGLOBIN 30.6 pg (28-32); MEAN CORPUSCULAR HGB CONC 32.1 g/dL (31-35); MEAN CORPUSCULAR VOLUME 95.3 fL (81-99); MONOCYTES # (AUTO) 0.1 (0.2-0.8); MONOCYTES % 1.5 % (4.4-11.3); NEUTROPHILS # (AUTO) 5.8 (2.1-6.9); NEUTROPHILS % 95.2 % (38.7-80.0); PLATELET COUNT 167 x10e3/uL (140-360); RED CELL DISTRIBUTION WIDTH 13.6 % (11.7-14.4)
[2023-02-12] MEDS ORDERED: ACETAMINOPHEN 325 MG TAB PO ONE (09:00)
[2023-02-12 09:03] LABS: INR 2.26; PROTHROMBIN TIME 25.4 seconds (11.9-14.5)
[2023-02-12 09:04] LABS: PARTIAL THROMBOPLASTIN TIME 47.7 seconds (23.8-35.5)
[2023-02-12 09:27] LABS: ALBUMIN 3.2 g/dL (3.5-5.0); ALBUMIN/GLOBULIN RATIO 0.8 (0.8-2.0); ANION GAP 18.2 mmol/L (8-16); CREATININE, SERUM 5.99 mg/dL (0.72-1.25); POTASSIUM 3.2 mmol/L (3.5-5.1)
[2023-02-12] MEDS ORDERED: SODIUM CHLORIDE 0.9% 500ML 500 ML IV ONE ×3 (09:45→13:15)
[2023-02-12] MEDS ORDERED: SODIUM CHLORIDE FLUSH 10 ML SYR INJ PRN (11:30)
[2023-02-12] MEDS ORDERED: ONDANSETRON HCL INJ 2MG/ML 2ML 2 MG/ML VIAL IV PRN ×2 (11:30→11:45)
[2023-02-12] MEDS ORDERED: BENZONATATE 100 MG CAP PO PRN (11:45)
[2023-02-12] MEDS ORDERED: DOCUSATE SODIUM 100 MG CAP PO PRN (11:45)
[2023-02-12] MEDS ORDERED: SIMETHICONE 80 MG CHEW PO PRN (11:45)
[2023-02-12] MEDS ORDERED: ALBUTEROL/IPRATROPIUM 3 ML NEB NEB PRN (11:45)
[2023-02-12] MEDS ORDERED: MELATONIN 5 MG TABLET PO PRN (11:45)
[2023-02-12] MEDS ORDERED: ACETAMINOPHEN 325 MG TAB PO PRN (11:45)
[2023-02-12] MEDS ORDERED: LIDOCAINE 4% PATCH TP PRN (11:45)
[2023-02-12] MEDS ORDERED: HYDRALAZINE HCL 20 MG/ML VIAL IV PRN (11:45)
[2023-02-12] MEDS ORDERED: DIPHENHYDRAMINE HCL 25 MG CAP PO PRN (11:45)
[2023-02-12] MEDS ORDERED: DEXTROSE 50% SYRINGE 50 ML IV PRN ×2 (11:45→12:15)
[2023-02-12] MEDS: MIDODRINE HCL 5 MG TABLET PO SCH ×2 (12:19→21:08)
[2023-02-12] MEDS ORDERED: AURYXIA210 MG PO ×2 (15:08)
[2023-02-12] MEDS: INSULIN LISPRO 100 UNIT/1 ML 3ML VIAL SQ SCH ×2 (18:26→20:17)
[2023-02-12] MEDS ORDERED: IOPAMIDOL 370 MG/ML 100 ML INFUS..BTL INJ ONE (18:51)
[2023-02-12] MEDS: HEPARIN SOD (PORCINE) 5,000 UNIT/ML VIAL SC SCH (20:16)
[2023-02-12] MEDS ORDERED: Vancomycin IV 500 MG in SODIUM CHLORIDE 0.9% 100 ML IV SCH (20:30)
[2023-02-13] VITALS (18 sets, daily range): BP systolic 108–134; BP diastolic 57–73; PULSE 59–69; RESP 12–23; TEMP 97.5–98.5; O2SAT 96–100
[2023-02-13] MEDS: MIDODRINE HCL 5 MG TABLET PO SCH ×3 (05:11→16:05)
[2023-02-13 05:50] LABS: BASOPHILS % 0.2 % (0.0-1.0); EOSINOPHILS # (AUTO) 0.1 (0.0-0.4); EOSINOPHILS % 0.6 % (0.0-6.0); HEMATOCRIT 30.6 % (38.2-49.6); HEMOGLOBIN 9.6 g/dL (14.0-18.0); LYMPHOCYTES # (AUTO) 0.7 (1.0-3.2); LYMPHOCYTES % 6.5 % (18.0-39.1); MEAN CORPUSCULAR HEMOGLOBIN 30.2 pg (28-32); MEAN CORPUSCULAR HGB CONC 31.4 g/dL (31-35); MEAN CORPUSCULAR VOLUME 96.2 fL (81-99); MONOCYTES # (AUTO) 0.8 (0.2-0.8); MONOCYTES % 8.1 % (4.4-11.3); NEUTROPHILS # (AUTO) 8.5 (2.1-6.9); NEUTROPHILS % 84.2 % (38.7-80.0); PLATELET COUNT 135 x10e3/uL (140-360); RED BLOOD COUNT 3.18 x10e6/uL (4.3-5.7); RED CELL DISTRIBUTION WIDTH 14.2 % (11.7-14.4)
[2023-02-13 06:11] LABS: ALBUMIN 2.7 g/dL (3.5-5.0); ALBUMIN/GLOBULIN RATIO 0.7 (0.8-2.0); ANION GAP 15.6 mmol/L (8-16); CALCIUM 9.8 mg/dL (8.4-10.2); CREATININE, SERUM 7.18 mg/dL (0.72-1.25); PHOSPHORUS 3.6 MG/DL (2.3-4.7); POTASSIUM 3.6 mmol/L (3.5-5.1)
[2023-02-13 06:31] LABS: THYROID STIMULATING HORMONE 0.449 uIU/mL (0.350-4.940)
[2023-02-13] MEDS: PANTOPRAZOLE SOD 40 MG TABEC PO SCH (07:36)
[2023-02-13] MEDS: INSULIN LISPRO 100 UNIT/1 ML 3ML VIAL SQ SCH ×4 (07:39→20:01)
[2023-02-13] MEDS: HEPARIN SOD (PORCINE) 5,000 UNIT/ML VIAL SC SCH ×2 (07:40→20:05)
[2023-02-13] MEDS ORDERED: SODIUM CHLORIDE 0.9% 1000ML 1,000 ML ONE (12:44)
[2023-02-14 05:17] VITALS: BP 108/55; PULSE 65; RESP 17; TEMP 97.5; O2SAT 98
[2023-02-14 05:36] LABS: BASOPHILS # (AUTO) 0.1 (0.0-0.1); BASOPHILS % 0.7 % (0.0-1.0); EOSINOPHILS # (AUTO) 0.2 (0.0-0.4); EOSINOPHILS % 2.4 % (0.0-6.0); HEMATOCRIT 30.8 % (38.2-49.6); HEMOGLOBIN 9.7 g/dL (14.0-18.0); LYMPHOCYTES # (AUTO) 0.5 (1.0-3.2); LYMPHOCYTES % 7.4 % (18.0-39.1); MEAN CORPUSCULAR HEMOGLOBIN 30.3 pg (28-32); MEAN CORPUSCULAR HGB CONC 31.5 g/dL (31-35); MEAN CORPUSCULAR VOLUME 96.3 fL (81-99); MONOCYTES # (AUTO) 0.8 (0.2-0.8); NEUTROPHILS # (AUTO) 5.6 (2.1-6.9); NEUTROPHILS % 78.1 % (38.7-80.0); PLATELET COUNT 141 x10e3/uL (140-360); RED CELL DISTRIBUTION WIDTH 13.7 % (11.7-14.4)
[2023-02-14 06:19] LABS: ALBUMIN 2.8 g/dL (3.5-5.0); ALBUMIN/GLOBULIN RATIO 0.7 (0.8-2.0); ANION GAP 15.5 mmol/L (8-16); CALCIUM 10.3 mg/dL (8.4-10.2); CREATININE, SERUM 5.29 mg/dL (0.72-1.25); POTASSIUM 3.5 mmol/L (3.5-5.1)
[2023-02-14 07:47] VITALS: BP 131/60; PULSE 61; RESP 17; TEMP 98; O2SAT 99
[2023-02-14 07:49] VITALS: BP 131/60; PULSE 61; RESP 17; TEMP 98; O2SAT 99
[2023-02-14 08:11] VITALS: BP 131/60; PULSE 65; RESP 17; TEMP 98; O2SAT 99
[2023-02-14] MEDS: MIDODRINE HCL 5 MG TABLET PO SCH (08:30)
[2023-02-14] MEDS: PANTOPRAZOLE SOD 40 MG TABEC PO SCH (08:30)
[2023-02-14] MEDS: HEPARIN SOD (PORCINE) 5,000 UNIT/ML VIAL SC SCH (08:34)
[2023-02-14] MEDS: INSULIN LISPRO 100 UNIT/1 ML 3ML VIAL SQ SCH ×2 (08:44→11:30)
[2023-02-14] MEDS ORDERED: CEFTRIAXONE 2 GM in SODIUM CHLORIDE 0.9% 100 ML IV SCH (11:00)
[2023-02-14 11:30] VITALS: BP 137/67; PULSE 61; RESP 16; TEMP 98.1; O2SAT 98
== END 2023-02-14 12:35 | disposition home or self-care (01) | DRG 871 ==
LOC: ER 08:19 → ERHOLD 11:24 → ICU 14:05 → MED/SURG3 02-13 12:30
PROVIDERS: ADMIT Internal Medicine; ATTEND Internal Medicine
PROC: 02HV33Z Insertion of Infusion Device into Superior Vena Cava, Percutaneous Approach (ICD-10-PCS; principal; 2023-02-12)
PROC: B5181ZA Fluoroscopy of Superior Vena Cava using Low Osmolar Contrast, Guidance (ICD-10-PCS; 2023-02-12)
PROC: 5A1D70Z Performance of Urinary Filtration, Intermittent, Less than 6 Hours Per Day (ICD-10-PCS; 2023-02-13)
DX: A41.51 Sepsis due to Escherichia coli [E. coli] (principal); N18.6 End stage renal disease; N12 Tubulo-interstitial nephritis, not specified as acute or chronic; Z16.24 Resistance to multiple antibiotics; I50.22 Chronic systolic (congestive) heart failure; I13.2 Hypertensive heart and chronic kidney disease with heart failure and with stage 5 chronic kidney disease, or end stage renal disease; E11.22 Type 2 diabetes mellitus with diabetic chronic kidney disease; E11.42 Type 2 diabetes mellitus with diabetic polyneuropathy; Z99.2 Dependence on renal dialysis; Z79.4 Long term (current) use of insulin; R07.89 Other chest pain; R11.2 Nausea with vomiting, unspecified; R19.7 Diarrhea, unspecified; I95.9 Hypotension, unspecified; R16.2 Hepatomegaly with splenomegaly, not elsewhere classified; D63.1 Anemia in chronic kidney disease; G40.909 Epilepsy, unspecified, not intractable, without status epilepticus; Z95.810 Presence of automatic (implantable) cardiac defibrillator
CPT/HCPCS: 36415; 36556; 71046; 71260; 74177; 74470; 76937; 77001; 80048; 80053; 82948; 83036; 83605; 83690; 83735; 83880; 84100; 84443; 84484; 85025; 85610; 85730; 86704; 86706; 87040; 87071; 87186; 87205; 87340; 93005; 94799; 99285; C1769; J0692; J0696; J1644; J7030; J7040; J7050; Q9967

== ENCOUNTER 2024-06-30 07:30 | Day surgery (SDC) | payer MEDICARE, OTHER ==
[2024-06-26 14:48] LABS: BASOPHILS % 0.3 % (0.0-1.0); EOSINOPHILS # (AUTO) 0.1 (0.0-0.4); EOSINOPHILS % 0.7 % (0.0-6.0); HEMATOCRIT 33.2 % (38.2-49.6); HEMOGLOBIN 10.5 g/dL (14.0-18.0); LYMPHOCYTES % 9.9 % (18.0-39.1); MEAN CORPUSCULAR HEMOGLOBIN 32.1 pg (28-32); MEAN CORPUSCULAR HGB CONC 31.6 g/dL (31-35); MEAN CORPUSCULAR VOLUME 101.5 fL (81-99); MONOCYTES # (AUTO) 0.9 (0.2-0.8); MONOCYTES % 8.7 % (4.4-11.3); PLATELET COUNT 223 x10e3/uL (140-360); RED BLOOD COUNT 3.27 x10e6/uL (4.3-5.7); WHITE BLOOD COUNT 9.95 x10e3/uL (4.8-10.8)
[2024-06-26 15:01] LABS: INR 1.3; PROTHROMBIN TIME 16.8 seconds (11.9-14.5)
[2024-06-26 15:11] LABS: ALBUMIN 3.2 g/dL (3.5-5.0); ALBUMIN/GLOBULIN RATIO 0.7 (0.8-2.0); ANION GAP 16.2 mmol/L (8-16); BILIRUBIN,TOTAL 0.8 mg/dL (0.2-1.2); CALCIUM 10.1 mg/dL (8.4-10.2); CHOL/HDL RATIO 3.7 (3.9-4.7); CREATININE, SERUM 3.95 mg/dL (0.72-1.25); POTASSIUM 3.2 mmol/L (3.5-5.1)
[2024-06-30] VITALS (10 sets, daily range): BP systolic 103–150; BP diastolic 47–75; PULSE 70–94; RESP 15–24; TEMP 98.8–99.5; O2SAT 95–100
[~2024-06-30] VITALS: Ht 175.3 cm; Wt 86.2 kg
[~2024-06-30 07:30] MED LIST changes: +ANUSOL-HC25 MG RC; +AURYXIA210 MG PO; +COLACE100 M1 PO; +FARXIGA5 MG PO; +FENTANYL CITRATE/PF 100MCG/2 ML INJ ONE; +HEPARIN SOD (PORCINE) 1000 UNIT/ML 30ML ONE; +HEPARIN SOD/SOD CHLORIDE 2,000 ML ONE; +IOPAMIDOL 370 MG/ML 100 ML INFUS..BTL INJ ONE; +LIDOCAINE HCL 2% LOCAL 20 ML VIAL ONE; +MIDAZOLAM HCL 2 MG/2 ML VIAL ONE; +NITROGLYCERIN/D5W 200 MCG/ML 250 ML ONE; +SODIUM CHLORIDE 0.9% 1000ML 1,000 ML ONE; +VERAPAMIL HCL 2.5 MG/ML 2 ML VIAL ONE
[2024-06-30] MEDS ORDERED: SODIUM CHLORIDE 0.9% 1000ML 1,000 ML ONE (07:35)
[2024-06-30] MEDS ORDERED: MIDAZOLAM HCL 2 MG/2 ML VIAL ONE (08:31)
[2024-06-30] MEDS ORDERED: IOPAMIDOL 370 MG/ML 100 ML INFUS..BTL INJ ONE (08:46)
[2024-06-30] MEDS ORDERED: CLOPIDOGREL BISULFATE 75 MG TAB ONE (09:12)
[2024-06-30] MEDS ORDERED: ASPIRIN 325 MG TAB ONE (09:12)
== END 2024-06-30 11:50 | disposition home or self-care (01) ==
LOC: CATH LAB 07:30
PROVIDERS: ATTEND Internal Medicine Cardiovascular Disease
DX: I70.202 Unspecified atherosclerosis of native arteries of extremities, left leg (principal); I73.89 Other specified peripheral vascular diseases; I48.0 Paroxysmal atrial fibrillation; I25.10 Atherosclerotic heart disease of native coronary artery without angina pectoris; I44.2 Atrioventricular block, complete; I13.2 Hypertensive heart and chronic kidney disease with heart failure and with stage 5 chronic kidney disease, or end stage renal disease; N18.6 End stage renal disease; I50.22 Chronic systolic (congestive) heart failure; E78.5 Hyperlipidemia, unspecified; R07.2 Precordial pain; Z01.812 Encounter for preprocedural laboratory examination; Z99.2 Dependence on renal dialysis; Z79.4 Long term (current) use of insulin; Z79.899 Other long term (current) drug therapy; Z98.61 Coronary angioplasty status; Z95.0 Presence of cardiac pacemaker; Z86.74 Personal history of sudden cardiac arrest
CPT/HCPCS: 36415 ×2; 37229; 75625; 76937; 80053; 80061; 82948; 85025; 85610; C1724; C1725 ×2; C1769 ×4; C1894; J1644; J2003; J2250; J3010; J7030; Q9967; 36247; 37228; 37232; 37233; 75716; 99152; 99153

== ENCOUNTER 2024-07-04 14:43 | Inpatient (IN) | payer OTHER, MEDICARE ==
[~2024-07-04] VITALS: Ht 175.3 cm; Wt 86.2 kg
[~2024-07-04 14:43] MED LIST changes: -FENTANYL CITRATE/PF 100MCG/2 ML INJ ONE; -HEPARIN SOD (PORCINE) 1000 UNIT/ML 30ML ONE; -HEPARIN SOD/SOD CHLORIDE 2,000 ML ONE; -IOPAMIDOL 370 MG/ML 100 ML INFUS..BTL INJ ONE; -LIDOCAINE HCL 2% LOCAL 20 ML VIAL ONE; -MIDAZOLAM HCL 2 MG/2 ML VIAL ONE; -NITROGLYCERIN/D5W 200 MCG/ML 250 ML ONE; -SODIUM CHLORIDE 0.9% 1000ML 1,000 ML ONE; -VERAPAMIL HCL 2.5 MG/ML 2 ML VIAL ONE
[2024-07-04 15:53] LABS: BASOPHILS % 0.3 % (0.0-1.0); EOSINOPHILS # (AUTO) 0.1 (0.0-0.4); HEMATOCRIT 29.1 % (38.2-49.6); HEMOGLOBIN 9.1 g/dL (14.0-18.0); LYMPHOCYTES # (AUTO) 0.8 (1.0-3.2); LYMPHOCYTES % 5.9 % (18.0-39.1); MEAN CORPUSCULAR HEMOGLOBIN 31.9 pg (28-32); MEAN CORPUSCULAR HGB CONC 31.3 g/dL (31-35); MEAN CORPUSCULAR VOLUME 102.1 fL (81-99); MONOCYTES # (AUTO) 1.1 (0.2-0.8); MONOCYTES % 7.4 % (4.4-11.3); NEUTROPHILS # (AUTO) 11.9 (2.1-6.9); NEUTROPHILS % 84.1 % (38.7-80.0); PLATELET COUNT 306 x10e3/uL (140-360); RED BLOOD COUNT 2.85 x10e6/uL (4.3-5.7); WHITE BLOOD COUNT 14.15 x10e3/uL (4.8-10.8)
[2024-07-04 16:03] LABS: INR 1.44; PROTHROMBIN TIME 18.3 seconds (11.9-14.5)
[2024-07-04 16:04] LABS: PARTIAL THROMBOPLASTIN TIME 46.5 seconds (23.8-35.5)
[2024-07-04 16:11] LABS: ALBUMIN 2.8 g/dL (3.5-5.0); ALBUMIN/GLOBULIN RATIO 0.5 (0.8-2.0); ANION GAP 18.9 mmol/L (8-16); BILIRUBIN,TOTAL 0.6 mg/dL (0.2-1.2); CALCIUM 10.7 mg/dL (8.4-10.2); CREATININE, SERUM 6.27 mg/dL (0.72-1.25); TOTAL PROTEIN 8.1 g/dL (6.5-8.1)
[2024-07-04] MEDS: ACETAMINOPHEN 325 MG TAB PO ONE (16:16)
[2024-07-04 16:25] LABS: POTASSIUM 2.9 mmol/L (3.5-5.1)
[2024-07-04] MEDS: Vancomycin IV 500 MG in SODIUM CHLORIDE 0.9% 100 ML IV ONE (16:28)
[2024-07-04 17:08] VITALS: PULSE 72; RESP 18
[2024-07-04] MEDS ORDERED: ONDANSETRON HCL INJ 2MG/ML 2ML 2 MG/ML VIAL IV PRN ×2 (17:30→18:00)
[2024-07-04] MEDS ORDERED: Morphine 2mg Syringe 2 MG/ML SYR IV PRN (17:30)
[2024-07-04] MEDS ORDERED: SODIUM CHLORIDE FLUSH 10 ML SYR INJ PRN (17:30)
[2024-07-04 17:43] VITALS: TEMP 100.3
[2024-07-04] MEDS: Vancomycin IV 1 GM in SODIUM CHLORIDE 0.9% 250ML 250 ML IV ONE (17:45)
[2024-07-04] MEDS ORDERED: LIDOCAINE 4% PATCH TP PRN (18:00)
[2024-07-04] MEDS ORDERED: DOCUSATE SODIUM 100 MG CAP PO PRN (18:00)
[2024-07-04] MEDS ORDERED: Morphine 4mg INJECTION 4 MG/ML INJ IV PRN (18:00)
[2024-07-04] MEDS ORDERED: SIMETHICONE 80 MG CHEW PO PRN (18:00)
[2024-07-04] MEDS ORDERED: HYDRALAZINE HCL 20 MG/ML VIAL IV PRN (18:00)
[2024-07-04] MEDS ORDERED: DEXTROSE 50% SYRINGE 50 ML IV PRN ×2 (18:00→18:15)
[2024-07-04] MEDS ORDERED: POTASSIUM CHLORIDE 20 MEQ TAB CR PO PRN (18:00)
[2024-07-04] MEDS ORDERED: MELATONIN 5 MG TABLET PO PRN (18:00)
[2024-07-04] MEDS ORDERED: ALBUTEROL/IPRATROPIUM 3 ML NEB NEB PRN (18:00)
[2024-07-04] MEDS ORDERED: BENZONATATE 100 MG CAP PO PRN (18:00)
[2024-07-04] MEDS ORDERED: DIPHENHYDRAMINE HCL 25 MG CAP PO PRN (18:00)
[2024-07-04] MEDS ORDERED: HYDROCODONE/APAP 5MG-325MG TAB PO PRN (18:00)
[2024-07-04] MEDS: POTASSIUM CHLORIDE 20 MEQ TAB CR PO STA (18:49)
[2024-07-04 20:02] VITALS: BP 128/60; PULSE 65; RESP 18; TEMP 98.1; O2SAT 100
[2024-07-04] MEDS: INSULIN LISPRO 100 UNIT/1 ML 3ML VIAL SQ SCH (20:03)
[2024-07-04] MEDS: HEPARIN SOD (PORCINE) 5,000 UNIT/ML VIAL SC SCH (20:06)
[2024-07-04 21:17] VITALS: BP 128/60; PULSE 65; RESP 18; TEMP 98.1; O2SAT 100
[2024-07-04 23:57] VITALS: BP 143/65; PULSE 68; RESP 16; TEMP 98; O2SAT 98
[2024-07-05] VITALS (7 sets, daily range): BP systolic 133–159; BP diastolic 47–96; PULSE 62–84; RESP 18; TEMP 97.3–100.8; O2SAT 95–100
[2024-07-05] MEDS: ACETAMINOPHEN 325 MG TAB PO PRN (06:00)
[2024-07-05 07:04] LABS: ALBUMIN 2.4 g/dL (3.5-5.0); ALBUMIN/GLOBULIN RATIO 0.5 (0.8-2.0); ANION GAP 17.1 mmol/L (8-16); BILIRUBIN,TOTAL 0.6 mg/dL (0.2-1.2); CALCIUM 10.3 mg/dL (8.4-10.2); CREATININE, SERUM 7.33 mg/dL (0.72-1.25)
[2024-07-05 07:05] LABS: CHOL/HDL RATIO 5.7 (3.9-4.7); POTASSIUM 3.1 mmol/L (3.5-5.1)
[2024-07-05 07:26] LABS: THYROID STIMULATING HORMONE 1.005 uIU/mL (0.350-4.940)
[2024-07-05] MEDS: PANTOPRAZOLE SOD 40 MG TABEC PO SCH (08:07)
[2024-07-05 08:12] LABS: BASOPHILS # (AUTO) 0.1 (0.0-0.1); BASOPHILS % 0.4 % (0.0-1.0); EOSINOPHILS # (AUTO) 0.2 (0.0-0.4); EOSINOPHILS % 1.4 % (0.0-6.0); HEMATOCRIT 26.4 % (38.2-49.6); HEMOGLOBIN 8.1 g/dL (14.0-18.0); LYMPHOCYTES # (AUTO) 0.9 (1.0-3.2); LYMPHOCYTES % 7.2 % (18.0-39.1); MEAN CORPUSCULAR HEMOGLOBIN 31.8 pg (28-32); MEAN CORPUSCULAR HGB CONC 30.7 g/dL (31-35); MEAN CORPUSCULAR VOLUME 103.5 fL (81-99); MONOCYTES # (AUTO) 0.8 (0.2-0.8); MONOCYTES % 6.2 % (4.4-11.3); NEUTROPHILS # (AUTO) 10.4 (2.1-6.9); NEUTROPHILS % 83.2 % (38.7-80.0); PLATELET COUNT 276 x10e3/uL (140-360); RED BLOOD COUNT 2.55 x10e6/uL (4.3-5.7); RED CELL DISTRIBUTION WIDTH 13.1 % (11.7-14.4); WHITE BLOOD COUNT 12.45 x10e3/uL (4.8-10.8)
[2024-07-06] VITALS (10 sets, daily range): BP systolic 121–144; BP diastolic 56–66; PULSE 68–90; RESP 18–20; TEMP 97.3–99.9; O2SAT 94–100
[2024-07-06 05:30] LABS: BASOPHILS # (AUTO) 0.1 (0.0-0.1); BASOPHILS % 0.4 % (0.0-1.0); EOSINOPHILS # (AUTO) 0.3 (0.0-0.4); EOSINOPHILS % 1.9 % (0.0-6.0); HEMATOCRIT 26.1 % (38.2-49.6); HEMOGLOBIN 8.1 g/dL (14.0-18.0); LYMPHOCYTES # (AUTO) 1.3 (1.0-3.2); LYMPHOCYTES % 8.8 % (18.0-39.1); MEAN CORPUSCULAR HEMOGLOBIN 31.9 pg (28-32); MEAN CORPUSCULAR VOLUME 102.8 fL (81-99); MONOCYTES # (AUTO) 0.7 (0.2-0.8); MONOCYTES % 5.2 % (4.4-11.3); NEUTROPHILS # (AUTO) 11.7 (2.1-6.9); NEUTROPHILS % 81.9 % (38.7-80.0); PLATELET COUNT 278 x10e3/uL (140-360); RED BLOOD COUNT 2.54 x10e6/uL (4.3-5.7); RED CELL DISTRIBUTION WIDTH 13.2 % (11.7-14.4); WHITE BLOOD COUNT 14.23 x10e3/uL (4.8-10.8)
[2024-07-06 05:48] LABS: ANION GAP 20.3 mmol/L (8-16); CALCIUM 10.1 mg/dL (8.4-10.2); CREATININE, SERUM 8.92 mg/dL (0.72-1.25)
[2024-07-06 05:52] LABS: POTASSIUM 3.3 mmol/L (3.5-5.1)
[2024-07-06] MEDS ORDERED: IOPAMIDOL 370 MG/ML 100 ML INFUS..BTL INJ ONE (15:31)
[2024-07-06] MEDS: EPOETIN ALFA-EPBX 10,000 UNIT/ML VIAL SC SCH (17:13)
[2024-07-06] MEDS ORDERED: POVIDONE IODINE 10% 120 ML BTL EXT PRN (19:30)
[2024-07-06] MEDS: SODIUM CHLORIDE 0.9% 1000ML 1,000 ML ONE (20:05)
[2024-07-06] MEDS: MUPIROCIN 2% OINT 22 GM TUBE TOP SCH (21:48)
[2024-07-07] VITALS (10 sets, daily range): BP systolic 108–154; BP diastolic 55–63; PULSE 67–86; RESP 16–19; TEMP 98–100.4; O2SAT 91–100
[2024-07-07 07:38] LABS: BASOPHILS # (AUTO) 0.1 (0.0-0.1); BASOPHILS % 0.5 % (0.0-1.0); EOSINOPHILS # (AUTO) 0.2 (0.0-0.4); EOSINOPHILS % 1.7 % (0.0-6.0); HEMATOCRIT 24.1 % (38.2-49.6); HEMOGLOBIN 7.5 g/dL (14.0-18.0); LYMPHOCYTES # (AUTO) 1.2 (1.0-3.2); LYMPHOCYTES % 8.7 % (18.0-39.1); MEAN CORPUSCULAR HEMOGLOBIN 32.2 pg (28-32); MEAN CORPUSCULAR HGB CONC 31.1 g/dL (31-35); MEAN CORPUSCULAR VOLUME 103.4 fL (81-99); MONOCYTES # (AUTO) 0.7 (0.2-0.8); MONOCYTES % 5.2 % (4.4-11.3); NEUTROPHILS # (AUTO) 10.8 (2.1-6.9); NEUTROPHILS % 81.8 % (38.7-80.0); PLATELET COUNT 313 x10e3/uL (140-360); RED BLOOD COUNT 2.33 x10e6/uL (4.3-5.7); RED CELL DISTRIBUTION WIDTH 13.5 % (11.7-14.4); WHITE BLOOD COUNT 13.21 x10e3/uL (4.8-10.8)
[2024-07-07 07:59] LABS: ANION GAP 16.5 mmol/L (8-16); CALCIUM 10.4 mg/dL (8.4-10.2); CREATININE, SERUM 5.8 mg/dL (0.72-1.25); POTASSIUM 3.5 mmol/L (3.5-5.1)
[2024-07-08] VITALS (12 sets, daily range): BP systolic 118–149; BP diastolic 45–71; PULSE 71–85; RESP 16–21; TEMP 98.5–99.7; O2SAT 95–100
[2024-07-08 05:17] LABS: HEPATITIS B CORE AB TOTAL Negative; HEPATITIS B SURFACE AG (P) Negative
[2024-07-08 06:15] LABS: BASOPHILS # (AUTO) 0.1 (0.0-0.1); BASOPHILS % 0.4 % (0.0-1.0); EOSINOPHILS # (AUTO) 0.2 (0.0-0.4); EOSINOPHILS % 1.1 % (0.0-6.0); HEMATOCRIT 23.6 % (38.2-49.6); LYMPHOCYTES # (AUTO) 1.2 (1.0-3.2); LYMPHOCYTES % 7.8 % (18.0-39.1); MEAN CORPUSCULAR HEMOGLOBIN 32.3 pg (28-32); MEAN CORPUSCULAR HGB CONC 31.4 g/dL (31-35); MEAN CORPUSCULAR VOLUME 103.1 fL (81-99); MONOCYTES # (AUTO) 0.9 (0.2-0.8); MONOCYTES % 5.7 % (4.4-11.3); NEUTROPHILS # (AUTO) 13.1 (2.1-6.9); NEUTROPHILS % 82.2 % (38.7-80.0); PLATELET COUNT 304 x10e3/uL (140-360); RED BLOOD COUNT 2.29 x10e6/uL (4.3-5.7); RED CELL DISTRIBUTION WIDTH 13.7 % (11.7-14.4); WHITE BLOOD COUNT 15.87 x10e3/uL (4.8-10.8)
[2024-07-08 06:21] LABS: HEMOGLOBIN 7.4 g/dL (14.0-18.0)
[2024-07-08 06:41] LABS: ANION GAP 18.2 mmol/L (8-16); CALCIUM 10.4 mg/dL (8.4-10.2); CREATININE, SERUM 7.98 mg/dL (0.72-1.25); MAGNESIUM 1.9 MG/DL (1.3-2.1); PHOSPHORUS 4.4 MG/DL (2.3-4.7)
[2024-07-08 06:46] LABS: POTASSIUM 3.2 mmol/L (3.5-5.1)
[2024-07-08] MEDS ORDERED: SODIUM CHLORIDE 0.9% 1000ML 2,000 ML IV PRN (09:00)
[2024-07-08] MEDS: POTASSIUM CHLORIDE 20 MEQ TAB CR PO ONE ×2 (19:44→20:12)
[2024-07-09] VITALS (9 sets, daily range): BP systolic 122–155; BP diastolic 56–64; PULSE 71–82; RESP 18–20; TEMP 98.4–100.3; O2SAT 96–100
[2024-07-09 05:47] LABS: BASOPHILS # (AUTO) 0.1 (0.0-0.1); BASOPHILS % 0.3 % (0.0-1.0); EOSINOPHILS # (AUTO) 0.3 (0.0-0.4); EOSINOPHILS % 1.8 % (0.0-6.0); HEMATOCRIT 25.8 % (38.2-49.6); HEMOGLOBIN 7.9 g/dL (14.0-18.0); LYMPHOCYTES # (AUTO) 1.1 (1.0-3.2); LYMPHOCYTES % 7.4 % (18.0-39.1); MEAN CORPUSCULAR HEMOGLOBIN 32.1 pg (28-32); MEAN CORPUSCULAR HGB CONC 30.6 g/dL (31-35); MEAN CORPUSCULAR VOLUME 104.9 fL (81-99); MONOCYTES # (AUTO) 0.8 (0.2-0.8); MONOCYTES % 5.4 % (4.4-11.3); NEUTROPHILS # (AUTO) 11.8 (2.1-6.9); NEUTROPHILS % 81.2 % (38.7-80.0); PLATELET COUNT 299 x10e3/uL (140-360); RED BLOOD COUNT 2.46 x10e6/uL (4.3-5.7); RED CELL DISTRIBUTION WIDTH 13.8 % (11.7-14.4)
[2024-07-09 06:14] LABS: ANION GAP 18.7 mmol/L (8-16); CALCIUM 10.5 mg/dL (8.4-10.2); CREATININE, SERUM 5.5 mg/dL (0.72-1.25); POTASSIUM 3.7 mmol/L (3.5-5.1)
[2024-07-09] MEDS ORDERED: PROPOFOL IV EMULSION 10 MG/ML 20 ML VIAL ONE (09:31)
[2024-07-09] MEDS ORDERED: SEVOFLURANE INHAL SOLN 250 ML PEN BTL ONE (09:31)
[2024-07-09] MEDS ORDERED: LIDOCAINE HCL 2% LOCAL INJ 5 ML SDV VIAL INJ ONE (09:31)
[2024-07-09] MEDS ORDERED: FENTANYL CITRATE/PF 100MCG/2 ML INJ ONE (18:57)
[2024-07-09] MEDS ORDERED: MIDAZOLAM HCL 2 MG/2 ML VIAL ONE (18:57)
[2024-07-10] VITALS (10 sets, daily range): BP systolic 114–146; BP diastolic 49–71; PULSE 62–79; RESP 17–20; TEMP 97.9–99.8; O2SAT 95–100
[2024-07-10 05:47] LABS: BASOPHILS # (AUTO) 0.1 (0.0-0.1); BASOPHILS % 0.5 % (0.0-1.0); EOSINOPHILS # (AUTO) 0.3 (0.0-0.4); EOSINOPHILS % 1.8 % (0.0-6.0); HEMATOCRIT 23.5 % (38.2-49.6); HEMOGLOBIN 7.1 g/dL (14.0-18.0); LYMPHOCYTES # (AUTO) 1.2 (1.0-3.2); LYMPHOCYTES % 7.9 % (18.0-39.1); MEAN CORPUSCULAR HEMOGLOBIN 31.8 pg (28-32); MEAN CORPUSCULAR HGB CONC 30.2 g/dL (31-35); MEAN CORPUSCULAR VOLUME 105.4 fL (81-99); MONOCYTES # (AUTO) 0.9 (0.2-0.8); MONOCYTES % 6.1 % (4.4-11.3); NEUTROPHILS # (AUTO) 11.6 (2.1-6.9); NEUTROPHILS % 79.2 % (38.7-80.0); PLATELET COUNT 250 x10e3/uL (140-360); RED BLOOD COUNT 2.23 x10e6/uL (4.3-5.7); RED CELL DISTRIBUTION WIDTH 14.1 % (11.7-14.4); WHITE BLOOD COUNT 14.62 x10e3/uL (4.8-10.8)
[2024-07-10 06:12] LABS: ANION GAP 19.6 mmol/L (8-16); CALCIUM 10.4 mg/dL (8.4-10.2); CREATININE, SERUM 7.39 mg/dL (0.72-1.25); POTASSIUM 3.6 mmol/L (3.5-5.1)
[2024-07-10] MEDS: EPOETIN ALFA-EPBX 10,000 UNIT/ML VIAL SC SCH (15:35)
[2024-07-11] VITALS (8 sets, daily range): BP systolic 113–135; BP diastolic 53–62; PULSE 70–83; RESP 18–20; TEMP 98.1–98.6; O2SAT 96–100
[2024-07-11 06:21] LABS: BASOPHILS % 0.4 % (0.0-1.0); EOSINOPHILS # (AUTO) 0.2 (0.0-0.4); EOSINOPHILS % 2.1 % (0.0-6.0); LYMPHOCYTES # (AUTO) 1.1 (1.0-3.2); LYMPHOCYTES % 9.7 % (18.0-39.1); MEAN CORPUSCULAR HEMOGLOBIN 31.9 pg (28-32); MEAN CORPUSCULAR VOLUME 106.5 fL (81-99); MONOCYTES # (AUTO) 0.8 (0.2-0.8); MONOCYTES % 6.7 % (4.4-11.3); NEUTROPHILS # (AUTO) 8.6 (2.1-6.9); NEUTROPHILS % 76.5 % (38.7-80.0); PLATELET COUNT 262 x10e3/uL (140-360); RED BLOOD COUNT 2.16 x10e6/uL (4.3-5.7); RED CELL DISTRIBUTION WIDTH 14.2 % (11.7-14.4)
[2024-07-11 06:42] LABS: ANION GAP 15.3 mmol/L (8-16); CALCIUM 9.8 mg/dL (8.4-10.2); CREATININE, SERUM 4.89 mg/dL (0.72-1.25); POTASSIUM 3.3 mmol/L (3.5-5.1)
[2024-07-11 06:45] LABS: HEMOGLOBIN 6.9 g/dL (14.0-18.0)
[2024-07-11] MEDS: SODIUM CHLORIDE 0.9% 250ML 250 ML IV ONE (09:01)
[2024-07-11] MEDS: SODIUM CHLORIDE 0.9% 250ML 250 ML ONE (12:59)
[2024-07-11] MEDS: SODIUM FERRIC GLUCONATE COMPLX 125 MG in SODIUM CHLORIDE 0.9% 100 ML IV SCH (17:33)
[2024-07-12] VITALS (10 sets, daily range): BP systolic 114–154; BP diastolic 57–80; PULSE 61–79; RESP 16–20; TEMP 97.9–99; O2SAT 96–100
[2024-07-12 05:29] LABS: BASOPHILS # (AUTO) 0.1 (0.0-0.1); BASOPHILS % 0.4 % (0.0-1.0); EOSINOPHILS # (AUTO) 0.3 (0.0-0.4); EOSINOPHILS % 2.1 % (0.0-6.0); HEMATOCRIT 26.4 % (38.2-49.6); HEMOGLOBIN 7.9 g/dL (14.0-18.0); LYMPHOCYTES # (AUTO) 1.1 (1.0-3.2); LYMPHOCYTES % 9.1 % (18.0-39.1); MEAN CORPUSCULAR HEMOGLOBIN 30.9 pg (28-32); MEAN CORPUSCULAR HGB CONC 29.9 g/dL (31-35); MEAN CORPUSCULAR VOLUME 103.1 fL (81-99); MONOCYTES # (AUTO) 0.8 (0.2-0.8); MONOCYTES % 6.4 % (4.4-11.3); NEUTROPHILS # (AUTO) 9.3 (2.1-6.9); NEUTROPHILS % 76.1 % (38.7-80.0); PLATELET COUNT 264 x10e3/uL (140-360); RED BLOOD COUNT 2.56 x10e6/uL (4.3-5.7); RED CELL DISTRIBUTION WIDTH 17.8 % (11.7-14.4); WHITE BLOOD COUNT 12.24 x10e3/uL (4.8-10.8)
[2024-07-12 05:47] LABS: ANION GAP 19.4 mmol/L (8-16); CALCIUM 10.4 mg/dL (8.4-10.2); CREATININE, SERUM 6.95 mg/dL (0.72-1.25)
[2024-07-12 05:52] LABS: POTASSIUM 3.4 mmol/L (3.5-5.1)
[2024-07-12 08:27] LABS: EOSINOPHILS % (MANUAL) 2 % (0-7); LYMPHOCYTES % (MANUAL) 10 % (19-48); MONOCYTES % (MANUAL) 5 % (3.4-9.0); NEUTROPHILS % (MANUAL) 83 % (40-74)
[2024-07-12 08:28] LABS: HYPOCHROMASIA SLIGHT; PLATELET ESTIMATE ADEQUATE; PLATELET MORPHOLOGY COMMENT NORMAL; RBC MORPHOLOGY COMMENT NORMAL
[2024-07-13] VITALS (9 sets, daily range): BP systolic 114–151; BP diastolic 60–76; PULSE 61–90; RESP 17–20; TEMP 97.9–98.7; O2SAT 95–100
[2024-07-13 06:46] LABS: BASOPHILS % 0.3 % (0.0-1.0); EOSINOPHILS # (AUTO) 0.3 (0.0-0.4); EOSINOPHILS % 2.7 % (0.0-6.0); HEMATOCRIT 25.7 % (38.2-49.6); HEMOGLOBIN 7.8 g/dL (14.0-18.0); LYMPHOCYTES # (AUTO) 1.1 (1.0-3.2); LYMPHOCYTES % 9.5 % (18.0-39.1); MEAN CORPUSCULAR HEMOGLOBIN 31.5 pg (28-32); MEAN CORPUSCULAR HGB CONC 30.4 g/dL (31-35); MEAN CORPUSCULAR VOLUME 103.6 fL (81-99); MONOCYTES # (AUTO) 0.8 (0.2-0.8); MONOCYTES % 6.5 % (4.4-11.3); NEUTROPHILS # (AUTO) 8.9 (2.1-6.9); NEUTROPHILS % 75.2 % (38.7-80.0); PLATELET COUNT 286 x10e3/uL (140-360); RED BLOOD COUNT 2.48 x10e6/uL (4.3-5.7); RED CELL DISTRIBUTION WIDTH 17.3 % (11.7-14.4); WHITE BLOOD COUNT 11.82 x10e3/uL (4.8-10.8)
[2024-07-13 07:07] LABS: ANION GAP 19.3 mmol/L (8-16); CALCIUM 10.6 mg/dL (8.4-10.2); CREATININE, SERUM 8.59 mg/dL (0.72-1.25); PHOSPHORUS 5.7 MG/DL (2.3-4.7)
[2024-07-13 07:08] LABS: POTASSIUM 3.3 mmol/L (3.5-5.1)
[2024-07-13] MEDS: POTASSIUM CHLORIDE 20 MEQ TAB CR PO ONE (11:47)
[2024-07-14] VITALS (9 sets, daily range): BP systolic 123–148; BP diastolic 58–69; PULSE 63–78; RESP 16–18; TEMP 98–98.6; O2SAT 97–100
[2024-07-14] MEDS: EPOETIN ALFA-EPBX 10,000 UNIT/ML VIAL SC SCH (02:20)
[2024-07-14 08:15] LABS: CALCIUM 9.7 mg/dL (8.7-10.2)
[2024-07-14] MEDS ORDERED: SODIUM CHLORIDE 0.9% 100 ML ONE (23:30)
[2024-07-15] VITALS: BP_SYST 138; BP_SYST 156; BP_DIAS 60; BP_DIAS 65; PULSE 61; PULSE 75; RESP 18; TEMP 97.8; TEMP 98.2; O2SAT 100; O2SAT 99
[2024-07-15 06:49] LABS: BASOPHILS % 0.3 % (0.0-1.0); EOSINOPHILS # (AUTO) 0.3 (0.0-0.4); EOSINOPHILS % 2.3 % (0.0-6.0); HEMATOCRIT 28.4 % (38.2-49.6); HEMOGLOBIN 8.3 g/dL (14.0-18.0); LYMPHOCYTES # (AUTO) 1.2 (1.0-3.2); LYMPHOCYTES % 10.8 % (18.0-39.1); MEAN CORPUSCULAR HEMOGLOBIN 30.7 pg (28-32); MEAN CORPUSCULAR HGB CONC 29.2 g/dL (31-35); MEAN CORPUSCULAR VOLUME 105.2 fL (81-99); MONOCYTES # (AUTO) 0.9 (0.2-0.8); MONOCYTES % 8.2 % (4.4-11.3); NEUTROPHILS % 75.1 % (38.7-80.0); PLATELET COUNT 254 x10e3/uL (140-360); RED CELL DISTRIBUTION WIDTH 16.8 % (11.7-14.4)
[2024-07-15 07:17] LABS: ANION GAP 21.8 mmol/L (8-16); CALCIUM 10.8 mg/dL (8.4-10.2); CREATININE, SERUM 7.05 mg/dL (0.72-1.25); PHOSPHORUS 6.5 MG/DL (2.3-4.7); POTASSIUM 3.8 mmol/L (3.5-5.1)
[2024-07-15 08:42] VITALS: BP 165/62; PULSE 74; RESP 20; TEMP 97.8; O2SAT 100
[2024-07-15 11:25] VITALS: BP 165/62; PULSE 74; RESP 20; TEMP 97.8; O2SAT 100
[2024-07-15 12:26] VITALS: BP 135/60; PULSE 63; RESP 20; TEMP 98.1; O2SAT 100
[2024-07-15] MEDS: SEVELAMER CARBONATE 800 MG TAB PO SCH (13:24)
[2024-07-15 14:11] VITALS: PULSE 81; RESP 16; O2SAT 97
[2024-07-15 15:48] VITALS: BP 141/59; PULSE 65; RESP 20; TEMP 98.7; O2SAT 100
== END 2024-07-15 18:50 | disposition home or self-care (01) | DRG 853 ==
LOC: ER 15:22 → ERHOLD 17:27 → MED/SURG2 18:14
PROVIDERS: ADMIT Internal Medicine; ATTEND Internal Medicine
PROC: 5A1D70Z Performance of Urinary Filtration, Intermittent, Less than 6 Hours Per Day (ICD-10-PCS; principal; 2024-07-06)
PROC: 5A1D70Z Performance of Urinary Filtration, Intermittent, Less than 6 Hours Per Day (ICD-10-PCS; 2024-07-08)
PROC: 0KBW0ZZ Excision of Left Foot Muscle, Open Approach (ICD-10-PCS; 2024-07-09)
PROC: 0Q9M0ZZ Drainage of Left Tarsal, Open Approach (ICD-10-PCS; 2024-07-09)
PROC: 0J9R0ZZ Drainage of Left Foot Subcutaneous Tissue and Fascia, Open Approach (ICD-10-PCS; 2024-07-09)
PROC: 5A1D70Z Performance of Urinary Filtration, Intermittent, Less than 6 Hours Per Day (ICD-10-PCS; 2024-07-10)
PROC: 5A1D70Z Performance of Urinary Filtration, Intermittent, Less than 6 Hours Per Day (ICD-10-PCS; 2024-07-10)
DX: A41.9 Sepsis, unspecified organism (principal); N18.6 End stage renal disease; M00.872 Arthritis due to other bacteria, left ankle and foot; L02.612 Cutaneous abscess of left foot; L03.116 Cellulitis of left lower limb; B96.89 Other specified bacterial agents as the cause of diseases classified elsewhere; E11.22 Type 2 diabetes mellitus with diabetic chronic kidney disease; E11.69 Type 2 diabetes mellitus with other specified complication; Z99.2 Dependence on renal dialysis; Z71.3 Dietary counseling and surveillance; Z68.28 Body mass index [BMI] 28.0-28.9, adult; E83.52 Hypercalcemia; E11.51 Type 2 diabetes mellitus with diabetic peripheral angiopathy without gangrene; Z89.422 Acquired absence of other left toe(s)
CPT/HCPCS: 36415; 80048; 80053; 80061; 82948; 83605; 83735; 83970; 84100; 84443; 85025; 85610; 85730; 86704; 86706; 86850; 86900; 86920; 87040; 87071; 87075; 87205; 87340; 94799; 96372; 97605; 97606; 99252; 99284; J0690; J1644; J2003; J2250; J2543; J2916; J3370; J7030; J7050; P9016; Q9967

== ENCOUNTER → 2024-08-04 | Outpatient (REF) | payer MEDICARE, OTHER | LOC: RAD 09:26 | PROVIDERS: ATTEND Nurse Practitioner Family | DX: Z01.818 Encounter for other preprocedural examination (principal); E11.621 Type 2 diabetes mellitus with foot ulcer; L97.426 Non-pressure chronic ulcer of left heel and midfoot with bone involvement without evidence of necrosis; L97.424 Non-pressure chronic ulcer of left heel and midfoot with necrosis of bone; L97.422 Non-pressure chronic ulcer of left heel and midfoot with fat layer exposed | CPT/HCPCS: 71046; 93005; 93306 ==

== ENCOUNTER → 2024-10-01 | Outpatient (REF) | payer MEDICARE, OTHER ==
[2024-10-01 10:58] LABS: BASOPHILS # (AUTO) 0.1 (0.0-0.1); BASOPHILS % 0.8 % (0.0-1.0); EOSINOPHILS # (AUTO) 0.2 (0.0-0.4); HEMATOCRIT 37.4 % (38.2-49.6); LYMPHOCYTES # (AUTO) 0.9 (1.0-3.2); LYMPHOCYTES % 12.1 % (18.0-39.1); MEAN CORPUSCULAR HEMOGLOBIN 29.8 pg (28-32); MEAN CORPUSCULAR HGB CONC 29.4 g/dL (31-35); MEAN CORPUSCULAR VOLUME 101.4 fL (81-99); MONOCYTES # (AUTO) 0.6 (0.2-0.8); MONOCYTES % 8.2 % (4.4-11.3); NEUTROPHILS # (AUTO) 5.8 (2.1-6.9); NEUTROPHILS % 75.6 % (38.7-80.0); PLATELET COUNT 238 x10e3/uL (140-360); RED BLOOD COUNT 3.69 x10e6/uL (4.3-5.7); RED CELL DISTRIBUTION WIDTH 13.8 % (11.7-14.4); WHITE BLOOD COUNT 7.71 x10e3/uL (4.8-10.8)
[2024-10-01 11:40] LABS: ALANINE AMINOTRANSFERASE 10 IU/L (0-55); ALBUMIN 3.3 g/dL (3.5-5.0); ALBUMIN/GLOBULIN RATIO 0.7 (0.8-2.0); ALKALINE PHOSPHATASE 93 IU/L (40-150); ANION GAP 18.9 mmol/L (8-16); BILIRUBIN,TOTAL 0.8 mg/dL (0.2-1.2); BLOOD UREA NITROGEN 19 mg/dL (7-26); BUN/CREATININE RATIO 4 (6-25); CALCIUM 10.2 mg/dL (8.4-10.2); CARBON DIOXIDE 28 mmol/L (22-29); CHLORIDE 96 mmol/L (98-107); CREATINE KINASE 32 IU/L (30-200); CREATININE, SERUM 4.84 mg/dL (0.72-1.25); EST GLOMERULAR FILTRATION RATE 13 ML/MIN (>=60); GLUCOSE 192 mg/dL (74-118); POTASSIUM 3.9 mmol/L (3.5-5.1); SODIUM 139 mmol/L (136-145); TOTAL PROTEIN 7.9 g/dL (6.5-8.1)
[2024-10-01 11:43] LABS: VANCOMYCIN,TROUGH < 1.1 ug/mL (5.0-10.0)
[2024-10-01 12:13] LABS: ERYTHROCYTE SEDIMENTATION RATE 87 mm/hr (0-13)
[2024-10-27 09:44] LABS: BASOPHILS # (AUTO) 0.1 (0.0-0.1); BASOPHILS % 0.8 % (0.0-1.0); EOSINOPHILS # (AUTO) 0.3 (0.0-0.4); EOSINOPHILS % 3.2 % (0.0-6.0); HEMATOCRIT 34.8 % (38.2-49.6); LYMPHOCYTES # (AUTO) 1.1 (1.0-3.2); LYMPHOCYTES % 13.9 % (18.0-39.1); MEAN CORPUSCULAR HEMOGLOBIN 30.3 pg (28-32); MEAN CORPUSCULAR HGB CONC 31.6 g/dL (31-35); MEAN CORPUSCULAR VOLUME 95.9 fL (81-99); MONOCYTES # (AUTO) 0.8 (0.2-0.8); MONOCYTES % 10.3 % (4.4-11.3); NEUTROPHILS # (AUTO) 5.6 (2.1-6.9); NEUTROPHILS % 71.4 % (38.7-80.0); PLATELET COUNT 222 x10e3/uL (140-360); RED BLOOD COUNT 3.63 x10e6/uL (4.3-5.7); RED CELL DISTRIBUTION WIDTH 14.4 % (11.7-14.4); WHITE BLOOD COUNT 7.87 x10e3/uL (4.8-10.8)
[2024-10-27 10:28] LABS: ERYTHROCYTE SEDIMENTATION RATE 75 mm/hr (0-13)
[2024-10-27 10:38] LABS: ALBUMIN 3.4 g/dL (3.5-5.0); ALBUMIN/GLOBULIN RATIO 0.7 (0.8-2.0); ANION GAP 16.6 mmol/L (8-16); BILIRUBIN,TOTAL 0.7 mg/dL (0.2-1.2); CALCIUM 10.2 mg/dL (8.4-10.2); CREATININE, SERUM 6.16 mg/dL (0.72-1.25); POTASSIUM 4.6 mmol/L (3.5-5.1); VANCOMYCIN,RANDOM 1.7 ug/mL
[2024-11-03 13:07] LABS: BASOPHILS % 0.5 % (0.0-1.0); EOSINOPHILS # (AUTO) 0.2 (0.0-0.4); EOSINOPHILS % 2.7 % (0.0-6.0); HEMATOCRIT 35.1 % (38.2-49.6); LYMPHOCYTES # (AUTO) 1.3 (1.0-3.2); LYMPHOCYTES % 17.4 % (18.0-39.1); MEAN CORPUSCULAR HGB CONC 31.3 g/dL (31-35); MEAN CORPUSCULAR VOLUME 95.6 fL (81-99); MONOCYTES # (AUTO) 0.7 (0.2-0.8); MONOCYTES % 9.1 % (4.4-11.3); NEUTROPHILS # (AUTO) 5.4 (2.1-6.9); NEUTROPHILS % 69.8 % (38.7-80.0); PLATELET COUNT 240 x10e3/uL (140-360); RED BLOOD COUNT 3.67 x10e6/uL (4.3-5.7); RED CELL DISTRIBUTION WIDTH 14.7 % (11.7-14.4); WHITE BLOOD COUNT 7.72 x10e3/uL (4.8-10.8)
[2024-11-03 13:50] LABS: ALANINE AMINOTRANSFERASE 9 IU/L (0-55); ALBUMIN 3.5 g/dL (3.5-5.0); ALBUMIN/GLOBULIN RATIO 0.8 (0.8-2.0); ALKALINE PHOSPHATASE 94 IU/L (40-150); ANION GAP 17.7 mmol/L (8-16); BILIRUBIN,TOTAL 0.7 mg/dL (0.2-1.2); BLOOD UREA NITROGEN 29 mg/dL (7-26); BUN/CREATININE RATIO 5 (6-25); CALCIUM 10.4 mg/dL (8.4-10.2); CARBON DIOXIDE 30 mmol/L (22-29); CHLORIDE 99 mmol/L (98-107); CREATINE KINASE 26 IU/L (30-200); CREATININE, SERUM 5.94 mg/dL (0.72-1.25); EST GLOMERULAR FILTRATION RATE 10 ML/MIN (>=60); GLUCOSE 112 mg/dL (74-118); POTASSIUM 4.7 mmol/L (3.5-5.1); SODIUM 142 mmol/L (136-145); TOTAL PROTEIN 7.8 g/dL (6.5-8.1)
[2024-11-03 14:00] LABS: VANCOMYCIN,TROUGH < 1.1 ug/mL (5.0-10.0)
[2024-11-03 14:05] LABS: ERYTHROCYTE SEDIMENTATION RATE 67 mm/hr (0-13)
[2024-11-10 10:30] LABS: BASOPHILS # (AUTO) 0.1 (0.0-0.1); BASOPHILS % 0.7 % (0.0-1.0); EOSINOPHILS # (AUTO) 0.2 (0.0-0.4); EOSINOPHILS % 2.9 % (0.0-6.0); HEMOGLOBIN 10.6 g/dL (14.0-18.0); LYMPHOCYTES % 13.8 % (18.0-39.1); MEAN CORPUSCULAR HEMOGLOBIN 29.9 pg (28-32); MEAN CORPUSCULAR HGB CONC 31.2 g/dL (31-35); MEAN CORPUSCULAR VOLUME 95.8 fL (81-99); MONOCYTES # (AUTO) 0.7 (0.2-0.8); MONOCYTES % 9.9 % (4.4-11.3); NEUTROPHILS # (AUTO) 5.1 (2.1-6.9); NEUTROPHILS % 72.4 % (38.7-80.0); PLATELET COUNT 206 x10e3/uL (140-360); RED BLOOD COUNT 3.55 x10e6/uL (4.3-5.7); RED CELL DISTRIBUTION WIDTH 15.3 % (11.7-14.4); WHITE BLOOD COUNT 6.98 x10e3/uL (4.8-10.8)
[2024-11-10 11:01] LABS: ALANINE AMINOTRANSFERASE 7 IU/L (0-55); ALBUMIN 3.3 g/dL (3.5-5.0); ALBUMIN/GLOBULIN RATIO 0.8 (0.8-2.0); ALKALINE PHOSPHATASE 103 IU/L (40-150); ANION GAP 17.6 mmol/L (8-16); BILIRUBIN,TOTAL 0.8 mg/dL (0.2-1.2); BLOOD UREA NITROGEN 27 mg/dL (7-26); BUN/CREATININE RATIO 5 (6-25); CALCIUM 10.5 mg/dL (8.4-10.2); CARBON DIOXIDE 29 mmol/L (22-29); CHLORIDE 99 mmol/L (98-107); CREATINE KINASE 26 IU/L (30-200); CREATININE, SERUM 5.83 mg/dL (0.72-1.25); EST GLOMERULAR FILTRATION RATE 10 ML/MIN (>=60); GLUCOSE 177 mg/dL (74-118); POTASSIUM 4.6 mmol/L (3.5-5.1); SODIUM 141 mmol/L (136-145); TOTAL PROTEIN 7.4 g/dL (6.5-8.1)
[2024-11-10 11:07] LABS: VANCOMYCIN,RANDOM < 1.1 ug/mL
[2024-11-10 11:41] LABS: ERYTHROCYTE SEDIMENTATION RATE 67 mm/hr (0-13)
[2024-12-03 14:23] LABS: BASOPHILS % 0.5 % (0.0-1.0); EOSINOPHILS # (AUTO) 0.2 (0.0-0.4); EOSINOPHILS % 2.2 % (0.0-6.0); HEMATOCRIT 37.7 % (38.2-49.6); HEMOGLOBIN 11.9 g/dL (14.0-18.0); LYMPHOCYTES # (AUTO) 1.2 (1.0-3.2); LYMPHOCYTES % 15.4 % (18.0-39.1); MEAN CORPUSCULAR HEMOGLOBIN 30.5 pg (28-32); MEAN CORPUSCULAR HGB CONC 31.6 g/dL (31-35); MEAN CORPUSCULAR VOLUME 96.7 fL (81-99); MONOCYTES # (AUTO) 0.7 (0.2-0.8); MONOCYTES % 9.6 % (4.4-11.3); NEUTROPHILS # (AUTO) 5.4 (2.1-6.9); NEUTROPHILS % 71.9 % (38.7-80.0); PLATELET COUNT 222 x10e3/uL (140-360); RED CELL DISTRIBUTION WIDTH 14.9 % (11.7-14.4); WHITE BLOOD COUNT 7.58 x10e3/uL (4.8-10.8)
[2024-12-03 14:41] LABS: ALANINE AMINOTRANSFERASE 8 IU/L (0-55); ALBUMIN 3.7 g/dL (3.5-5.0); ALBUMIN/GLOBULIN RATIO 0.8 (0.8-2.0); ALKALINE PHOSPHATASE 106 IU/L (40-150); ANION GAP 19.5 mmol/L (8-16); BILIRUBIN,TOTAL 0.6 mg/dL (0.2-1.2); BLOOD UREA NITROGEN 25 mg/dL (7-26); BUN/CREATININE RATIO 4 (6-25); CALCIUM 10.1 mg/dL (8.4-10.2); CARBON DIOXIDE 29 mmol/L (22-29); CHLORIDE 99 mmol/L (98-107); CREATINE KINASE 36 IU/L (30-200); CREATININE, SERUM 6.18 mg/dL (0.72-1.25); EST GLOMERULAR FILTRATION RATE 10 ML/MIN (>=60); GLUCOSE 111 mg/dL (74-118); POTASSIUM 4.5 mmol/L (3.5-5.1); SODIUM 143 mmol/L (136-145); TOTAL PROTEIN 8.2 g/dL (6.5-8.1)
[2024-12-03 14:43] LABS: VANCOMYCIN,TROUGH < 1.1 ug/mL (5.0-10.0)
[2024-12-03 14:53] LABS: ERYTHROCYTE SEDIMENTATION RATE 73 mm/hr (0-13)
== END ==
LOC: LAB 10:15
PROVIDERS: ATTEND Internal Medicine Infectious Disease
DX: E11.21 Type 2 diabetes mellitus with diabetic nephropathy (principal); E66.01 Morbid (severe) obesity due to excess calories; I10 Essential (primary) hypertension; N18.6 End stage renal disease; Z99.2 Dependence on renal dialysis
CPT/HCPCS: 36415; 80053; 80202; 82550; 85025; 85651; 86140

== ENCOUNTER → 2024-10-16 | Outpatient (RCR) | payer MEDICARE, OTHER ==
[~2024-10-16] MED LIST changes: +COLLAGENASE OINTMENT 30 GM TUBE ONE; +MINERAL OIL/PETROLAT/GLYCERI 6OZ BTL ONE
== END ==
LOC: WCC 09-17 14:42
PROVIDERS: ATTEND Nurse Practitioner Family
DX: E11.621 Type 2 diabetes mellitus with foot ulcer (principal); M86.172 Other acute osteomyelitis, left ankle and foot; L97.424 Non-pressure chronic ulcer of left heel and midfoot with necrosis of bone
CPT/HCPCS: 36415 ×10; 82948 ×10; 87071; 87075; 87186; 87205; 97602 ×2; 97605 ×5; 97606 ×3; 99212 ×7; 99213; G0277 ×10

== ENCOUNTER → 2024-11-13 | Outpatient (RCR) | payer MEDICARE, OTHER ==
[2024-10-20 09:53] LABS: BASOPHILS % 0.6 % (0.0-1.0); EOSINOPHILS # (AUTO) 0.2 (0.0-0.4); EOSINOPHILS % 2.4 % (0.0-6.0); HEMATOCRIT 35.1 % (38.2-49.6); LYMPHOCYTES # (AUTO) 1.1 (1.0-3.2); LYMPHOCYTES % 15.2 % (18.0-39.1); MEAN CORPUSCULAR HEMOGLOBIN 30.3 pg (28-32); MEAN CORPUSCULAR HGB CONC 31.3 g/dL (31-35); MEAN CORPUSCULAR VOLUME 96.7 fL (81-99); MONOCYTES # (AUTO) 0.6 (0.2-0.8); MONOCYTES % 8.9 % (4.4-11.3); NEUTROPHILS # (AUTO) 5.1 (2.1-6.9); NEUTROPHILS % 72.6 % (38.7-80.0); PLATELET COUNT 209 x10e3/uL (140-360); RED BLOOD COUNT 3.63 x10e6/uL (4.3-5.7); RED CELL DISTRIBUTION WIDTH 14.6 % (11.7-14.4); WHITE BLOOD COUNT 7.06 x10e3/uL (4.8-10.8)
[2024-10-20 10:22] LABS: ALBUMIN 3.4 g/dL (3.5-5.0); ALBUMIN/GLOBULIN RATIO 0.7 (0.8-2.0); ANION GAP 19.1 mmol/L (8-16); BILIRUBIN,TOTAL 0.7 mg/dL (0.2-1.2); CALCIUM 10.1 mg/dL (8.4-10.2); CREATININE, SERUM 6.26 mg/dL (0.72-1.25); POTASSIUM 4.1 mmol/L (3.5-5.1); VANCOMYCIN,RANDOM 3.9 ug/mL
[2024-10-20 10:35] LABS: ERYTHROCYTE SEDIMENTATION RATE 80 mm/hr (0-13)
[~2024-11-13] MED LIST changes: +MUPIROCIN 2% OINT 22 GM TUBE ONE
== END ==
LOC: WCC 10-19 11:24
PROVIDERS: ATTEND Internal Medicine Infectious Disease
DX: E11.621 Type 2 diabetes mellitus with foot ulcer (principal); M86.172 Other acute osteomyelitis, left ankle and foot; L97.422 Non-pressure chronic ulcer of left heel and midfoot with fat layer exposed; L97.424 Non-pressure chronic ulcer of left heel and midfoot with necrosis of bone
CPT/HCPCS: 36415 ×16; 80053; 80202; 82550; 82948 ×17; 85025; 85651; 86140; 97602 ×2; 97605 ×5; 99212 ×2; 99213 ×13; G0277 ×17

== ENCOUNTER → 2024-11-16 | Outpatient (REF) | payer MEDICARE, OTHER ==
[~2024-11-16] MED LIST changes: -COLLAGENASE OINTMENT 30 GM TUBE ONE; -MINERAL OIL/PETROLAT/GLYCERI 6OZ BTL ONE; -MUPIROCIN 2% OINT 22 GM TUBE ONE
== END ==
LOC: CT 12:36
PROVIDERS: ATTEND Nurse Practitioner Family
DX: E11.621 Type 2 diabetes mellitus with foot ulcer (principal); L97.521 Non-pressure chronic ulcer of other part of left foot limited to breakdown of skin

== ENCOUNTER → 2024-11-19 | Outpatient (REF) | payer MEDICARE, OTHER ==
[2024-11-19 07:28] LABS: BASOPHILS # (AUTO) 0.1 (0.0-0.1); BASOPHILS % 0.7 % (0.0-1.0); EOSINOPHILS # (AUTO) 0.2 (0.0-0.4); EOSINOPHILS % 3.3 % (0.0-6.0); HEMATOCRIT 35.3 % (38.2-49.6); HEMOGLOBIN 11.2 g/dL (14.0-18.0); LYMPHOCYTES # (AUTO) 1.1 (1.0-3.2); LYMPHOCYTES % 16.7 % (18.0-39.1); MEAN CORPUSCULAR HEMOGLOBIN 29.9 pg (28-32); MEAN CORPUSCULAR HGB CONC 31.7 g/dL (31-35); MEAN CORPUSCULAR VOLUME 94.4 fL (81-99); MONOCYTES # (AUTO) 0.7 (0.2-0.8); MONOCYTES % 11.1 % (4.4-11.3); NEUTROPHILS # (AUTO) 4.5 (2.1-6.9); NEUTROPHILS % 67.9 % (38.7-80.0); PLATELET COUNT 198 x10e3/uL (140-360); RED BLOOD COUNT 3.74 x10e6/uL (4.3-5.7); RED CELL DISTRIBUTION WIDTH 14.8 % (11.7-14.4); WHITE BLOOD COUNT 6.69 x10e3/uL (4.8-10.8)
[2024-11-19 08:01] LABS: ALANINE AMINOTRANSFERASE 8 IU/L (0-55); ALBUMIN 3.4 g/dL (3.5-5.0); ALBUMIN/GLOBULIN RATIO 0.8 (0.8-2.0); ALKALINE PHOSPHATASE 120 IU/L (40-150); BILIRUBIN,TOTAL 0.7 mg/dL (0.2-1.2); BLOOD UREA NITROGEN 20 mg/dL (7-26); BUN/CREATININE RATIO 4 (6-25); CALCIUM 10.5 mg/dL (8.4-10.2); CARBON DIOXIDE 30 mmol/L (22-29); CHLORIDE 97 mmol/L (98-107); CREATINE KINASE 27 IU/L (30-200); CREATININE, SERUM 4.73 mg/dL (0.72-1.25); EST GLOMERULAR FILTRATION RATE 13 ML/MIN (>=60); GLUCOSE 135 mg/dL (74-118); SODIUM 140 mmol/L (136-145); TOTAL PROTEIN 7.8 g/dL (6.5-8.1); VANCOMYCIN,TROUGH < 1.1 ug/mL (5.0-10.0)
[2024-11-19 09:18] LABS: ERYTHROCYTE SEDIMENTATION RATE 74 mm/hr (0-13)
== END ==
LOC: LAB 07:12
PROVIDERS: ATTEND Internal Medicine Infectious Disease
DX: E11.21 Type 2 diabetes mellitus with diabetic nephropathy (principal); I10 Essential (primary) hypertension; N18.6 End stage renal disease; Z99.2 Dependence on renal dialysis; E66.01 Morbid (severe) obesity due to excess calories
CPT/HCPCS: 36415; 80053; 80202; 82550; 85025; 85651; 86140

== ENCOUNTER → 2024-11-24 | Outpatient (REF) | payer MEDICARE, OTHER ==
[2024-11-24 09:11] LABS: BASOPHILS # (AUTO) 0.1 (0.0-0.1); BASOPHILS % 1.1 % (0.0-1.0); EOSINOPHILS # (AUTO) 0.1 (0.0-0.4); HEMATOCRIT 35.9 % (38.2-49.6); HEMOGLOBIN 11.5 g/dL (14.0-18.0); LYMPHOCYTES % 15.6 % (18.0-39.1); MEAN CORPUSCULAR HEMOGLOBIN 30.7 pg (28-32); MEAN CORPUSCULAR VOLUME 95.7 fL (81-99); MONOCYTES # (AUTO) 0.6 (0.2-0.8); MONOCYTES % 9.5 % (4.4-11.3); NEUTROPHILS # (AUTO) 4.8 (2.1-6.9); NEUTROPHILS % 71.3 % (38.7-80.0); PLATELET COUNT 225 x10e3/uL (140-360); RED BLOOD COUNT 3.75 x10e6/uL (4.3-5.7); RED CELL DISTRIBUTION WIDTH 14.7 % (11.7-14.4); WHITE BLOOD COUNT 6.66 x10e3/uL (4.8-10.8)
[2024-11-24 09:41] LABS: ALANINE AMINOTRANSFERASE 12 IU/L (0-55); ALBUMIN 3.6 g/dL (3.5-5.0); ALBUMIN/GLOBULIN RATIO 0.9 (0.8-2.0); ALKALINE PHOSPHATASE 83 IU/L (40-150); ANION GAP 18.1 mmol/L (8-16); BILIRUBIN,TOTAL 0.7 mg/dL (0.2-1.2); BLOOD UREA NITROGEN 20 mg/dL (7-26); BUN/CREATININE RATIO 4 (6-25); CALCIUM 10.1 mg/dL (8.4-10.2); CARBON DIOXIDE 29 mmol/L (22-29); CHLORIDE 97 mmol/L (98-107); CREATINE KINASE 26 IU/L (30-200); CREATININE, SERUM 5.59 mg/dL (0.72-1.25); EST GLOMERULAR FILTRATION RATE 11 ML/MIN (>=60); GLUCOSE 110 mg/dL (74-118); POTASSIUM 4.1 mmol/L (3.5-5.1); SODIUM 140 mmol/L (136-145); TOTAL PROTEIN 7.8 g/dL (6.5-8.1)
[2024-11-24 09:53] LABS: VANCOMYCIN,TROUGH < 1.1 ug/mL (5.0-10.0)
[2024-11-24 10:15] LABS: ERYTHROCYTE SEDIMENTATION RATE 70 mm/hr (0-13)
== END ==
LOC: LAB 08:53
PROVIDERS: ATTEND Internal Medicine Infectious Disease
DX: E11.21 Type 2 diabetes mellitus with diabetic nephropathy (principal); I10 Essential (primary) hypertension; N18.6 End stage renal disease; Z99.2 Dependence on renal dialysis; E66.01 Morbid (severe) obesity due to excess calories
CPT/HCPCS: 36415; 80053; 80202; 82550; 85025; 85651; 86140

== ENCOUNTER → 2024-12-03 | Outpatient (REF) | payer MEDICARE, OTHER | LOC: LAB 13:30 | PROVIDERS: ATTEND Internal Medicine Infectious Disease | DX: E11.21 Type 2 diabetes mellitus with diabetic nephropathy (principal); I10 Essential (primary) hypertension; N18.6 End stage renal disease; Z99.2 Dependence on renal dialysis; E66.01 Morbid (severe) obesity due to excess calories ==

== ENCOUNTER → 2024-12-08 | Outpatient (REF) | payer MEDICARE, OTHER ==
[2024-12-08 11:01] LABS: BASOPHILS # (AUTO) 0.1 (0.0-0.1); BASOPHILS % 0.8 % (0.0-1.0); EOSINOPHILS # (AUTO) 0.1 (0.0-0.4); EOSINOPHILS % 2.1 % (0.0-6.0); HEMATOCRIT 36.1 % (38.2-49.6); HEMOGLOBIN 11.7 g/dL (14.0-18.0); LYMPHOCYTES % 15.6 % (18.0-39.1); MEAN CORPUSCULAR HEMOGLOBIN 30.8 pg (28-32); MEAN CORPUSCULAR HGB CONC 32.4 g/dL (31-35); MONOCYTES # (AUTO) 0.5 (0.2-0.8); MONOCYTES % 7.9 % (4.4-11.3); NEUTROPHILS # (AUTO) 4.8 (2.1-6.9); NEUTROPHILS % 73.3 % (38.7-80.0); PLATELET COUNT 217 x10e3/uL (140-360); RED CELL DISTRIBUTION WIDTH 14.2 % (11.7-14.4); WHITE BLOOD COUNT 6.55 x10e3/uL (4.8-10.8)
[2024-12-08 11:22] LABS: ALANINE AMINOTRANSFERASE 10 IU/L (0-55); ALBUMIN 3.6 g/dL (3.5-5.0); ALBUMIN/GLOBULIN RATIO 0.9 (0.8-2.0); ALKALINE PHOSPHATASE 91 IU/L (40-150); BILIRUBIN,TOTAL 0.9 mg/dL (0.2-1.2); BLOOD UREA NITROGEN 29 mg/dL (7-26); BUN/CREATININE RATIO 4 (6-25); CALCIUM 10.2 mg/dL (8.4-10.2); CARBON DIOXIDE 30 mmol/L (22-29); CHLORIDE 97 mmol/L (98-107); CREATINE KINASE 26 IU/L (30-200); CREATININE, SERUM 6.45 mg/dL (0.72-1.25); EST GLOMERULAR FILTRATION RATE 9 ML/MIN (>=60); GLUCOSE 195 mg/dL (74-118); SODIUM 140 mmol/L (136-145); TOTAL PROTEIN 7.6 g/dL (6.5-8.1)
[2024-12-08 11:25] LABS: VANCOMYCIN,TROUGH < 1.1 ug/mL (5.0-10.0)
[2024-12-08 11:59] LABS: ERYTHROCYTE SEDIMENTATION RATE 70 mm/hr (0-13)
== END ==
LOC: LAB 10:46
PROVIDERS: ATTEND Internal Medicine Infectious Disease
DX: M86.372 Chronic multifocal osteomyelitis, left ankle and foot (principal)
CPT/HCPCS: 36415; 80053; 80202; 82550; 85025; 85651; 86140

== ENCOUNTER → 2024-12-14 | Outpatient (RCR) | payer MEDICARE, OTHER | LOC: EDSTATUS 11-16 11:33 → WCC 11-18 10:00 | PROVIDERS: ATTEND Nurse Practitioner Family | DX: E11.621 Type 2 diabetes mellitus with foot ulcer (principal); M86.172 Other acute osteomyelitis, left ankle and foot; L97.424 Non-pressure chronic ulcer of left heel and midfoot with necrosis of bone; L97.422 Non-pressure chronic ulcer of left heel and midfoot with fat layer exposed | CPT/HCPCS: 36415 ×14; 82948 ×14; 97605 ×12; 99212 ×8; 99213 ×4; G0277 ×16 ==

== ENCOUNTER → 2024-12-15 | Outpatient (REF) | payer MEDICARE, OTHER ==
[2024-12-15 11:17] LABS: BASOPHILS # (AUTO) 0.1 (0.0-0.1); BASOPHILS % 0.7 % (0.0-1.0); EOSINOPHILS # (AUTO) 0.2 (0.0-0.4); EOSINOPHILS % 2.2 % (0.0-6.0); HEMATOCRIT 33.5 % (38.2-49.6); HEMOGLOBIN 10.7 g/dL (14.0-18.0); LYMPHOCYTES % 14.6 % (18.0-39.1); MEAN CORPUSCULAR HEMOGLOBIN 30.6 pg (28-32); MEAN CORPUSCULAR HGB CONC 31.9 g/dL (31-35); MEAN CORPUSCULAR VOLUME 95.7 fL (81-99); MONOCYTES # (AUTO) 0.6 (0.2-0.8); MONOCYTES % 9.3 % (4.4-11.3); NEUTROPHILS % 72.9 % (38.7-80.0); PLATELET COUNT 200 x10e3/uL (140-360); RED CELL DISTRIBUTION WIDTH 13.7 % (11.7-14.4); WHITE BLOOD COUNT 6.85 x10e3/uL (4.8-10.8)
[2024-12-15 11:50] LABS: ALANINE AMINOTRANSFERASE 8 IU/L (0-55); ALBUMIN 3.5 g/dL (3.5-5.0); ALBUMIN/GLOBULIN RATIO 0.9 (0.8-2.0); ALKALINE PHOSPHATASE 90 IU/L (40-150); BILIRUBIN,TOTAL 0.9 mg/dL (0.2-1.2); BLOOD UREA NITROGEN 22 mg/dL (7-26); BUN/CREATININE RATIO 4 (6-25); CALCIUM 10.3 mg/dL (8.4-10.2); CARBON DIOXIDE 28 mmol/L (22-29); CHLORIDE 99 mmol/L (98-107); CREATINE KINASE 36 IU/L (30-200); CREATININE, SERUM 5.43 mg/dL (0.72-1.25); EST GLOMERULAR FILTRATION RATE 11 ML/MIN (>=60); GLUCOSE 135 mg/dL (74-118); SODIUM 140 mmol/L (136-145); TOTAL PROTEIN 7.6 g/dL (6.5-8.1)
[2024-12-15 11:51] LABS: VANCOMYCIN,TROUGH < 1.1 ug/mL (5.0-10.0)
[2024-12-15 12:02] LABS: ERYTHROCYTE SEDIMENTATION RATE 63 mm/hr (0-13)
== END ==
LOC: LAB 11:01
PROVIDERS: ATTEND Internal Medicine Infectious Disease
DX: E11.21 Type 2 diabetes mellitus with diabetic nephropathy (principal); I10 Essential (primary) hypertension; N18.6 End stage renal disease; Z99.2 Dependence on renal dialysis; E66.01 Morbid (severe) obesity due to excess calories
CPT/HCPCS: 36415; 80053; 80202; 82550; 85025; 85651; 86140

== ENCOUNTER → 2024-12-22 | Outpatient (REF) | payer MEDICARE, OTHER ==
[2024-12-22 10:59] LABS: BASOPHILS % 0.6 % (0.0-1.0); EOSINOPHILS # (AUTO) 0.1 (0.0-0.4); EOSINOPHILS % 1.9 % (0.0-6.0); HEMATOCRIT 33.6 % (38.2-49.6); HEMOGLOBIN 10.8 g/dL (14.0-18.0); LYMPHOCYTES # (AUTO) 1.2 (1.0-3.2); LYMPHOCYTES % 15.8 % (18.0-39.1); MEAN CORPUSCULAR HGB CONC 32.1 g/dL (31-35); MEAN CORPUSCULAR VOLUME 96.6 fL (81-99); MONOCYTES # (AUTO) 0.7 (0.2-0.8); MONOCYTES % 10.2 % (4.4-11.3); NEUTROPHILS # (AUTO) 5.2 (2.1-6.9); NEUTROPHILS % 71.1 % (38.7-80.0); PLATELET COUNT 227 x10e3/uL (140-360); RED BLOOD COUNT 3.48 x10e6/uL (4.3-5.7); RED CELL DISTRIBUTION WIDTH 13.9 % (11.7-14.4); WHITE BLOOD COUNT 7.27 x10e3/uL (4.8-10.8)
[2024-12-22 11:25] LABS: ALANINE AMINOTRANSFERASE 10 IU/L (0-55); ALBUMIN 3.6 g/dL (3.5-5.0); ALBUMIN/GLOBULIN RATIO 0.9 (0.8-2.0); ALKALINE PHOSPHATASE 103 IU/L (40-150); ANION GAP 18.8 mmol/L (8-16); BILIRUBIN,TOTAL 0.7 mg/dL (0.2-1.2); BLOOD UREA NITROGEN 26 mg/dL (7-26); BUN/CREATININE RATIO 4 (6-25); CALCIUM 10.2 mg/dL (8.4-10.2); CARBON DIOXIDE 28 mmol/L (22-29); CHLORIDE 100 mmol/L (98-107); CREATINE KINASE 36 IU/L (30-200); CREATININE, SERUM 5.92 mg/dL (0.72-1.25); EST GLOMERULAR FILTRATION RATE 10 ML/MIN (>=60); GLUCOSE 205 mg/dL (74-118); POTASSIUM 3.8 mmol/L (3.5-5.1); SODIUM 143 mmol/L (136-145); TOTAL PROTEIN 7.7 g/dL (6.5-8.1)
[2024-12-22 11:28] LABS: VANCOMYCIN,TROUGH < 1.1 ug/mL (5.0-10.0)
== END ==
LOC: LAB 10:52
PROVIDERS: ATTEND Internal Medicine Infectious Disease
DX: E11.21 Type 2 diabetes mellitus with diabetic nephropathy (principal); I10 Essential (primary) hypertension; N18.6 End stage renal disease; Z99.2 Dependence on renal dialysis; E66.01 Morbid (severe) obesity due to excess calories
CPT/HCPCS: 36415; 80053; 80202; 82550; 85025; 86140

== ENCOUNTER 2024-12-23 11:36 | Outpatient (RCR) | payer MEDICARE, OTHER | END 2025-01-13 | LOC: WCC 11:36 | PROVIDERS: ATTEND Nurse Practitioner Family | DX: E11.621 Type 2 diabetes mellitus with foot ulcer (principal); M86.172 Other acute osteomyelitis, left ankle and foot; L97.422 Non-pressure chronic ulcer of left heel and midfoot with fat layer exposed; L97.424 Non-pressure chronic ulcer of left heel and midfoot with necrosis of bone ==

== ENCOUNTER → 2024-12-29 | Outpatient (REF) | payer MEDICARE, OTHER ==
[2024-12-29 11:07] LABS: BASOPHILS # (AUTO) 0.1 (0.0-0.1); BASOPHILS % 0.8 % (0.0-1.0); EOSINOPHILS # (AUTO) 0.2 (0.0-0.4); EOSINOPHILS % 2.4 % (0.0-6.0); HEMATOCRIT 32.2 % (38.2-49.6); HEMOGLOBIN 10.4 g/dL (14.0-18.0); LYMPHOCYTES % 15.4 % (18.0-39.1); MEAN CORPUSCULAR HEMOGLOBIN 30.9 pg (28-32); MEAN CORPUSCULAR HGB CONC 32.3 g/dL (31-35); MEAN CORPUSCULAR VOLUME 95.5 fL (81-99); MONOCYTES # (AUTO) 0.6 (0.2-0.8); MONOCYTES % 8.9 % (4.4-11.3); NEUTROPHILS # (AUTO) 4.6 (2.1-6.9); NEUTROPHILS % 72.2 % (38.7-80.0); PLATELET COUNT 205 x10e3/uL (140-360); RED BLOOD COUNT 3.37 x10e6/uL (4.3-5.7); RED CELL DISTRIBUTION WIDTH 13.7 % (11.7-14.4); WHITE BLOOD COUNT 6.31 x10e3/uL (4.8-10.8)
[2024-12-29 11:47] LABS: ANION GAP 17.6 mmol/L (8-16); BLOOD UREA NITROGEN 23 mg/dL (7-26); CARBON DIOXIDE 27 mmol/L (22-29); CHLORIDE 97 mmol/L (98-107); POTASSIUM 3.6 mmol/L (3.5-5.1); SODIUM 138 mmol/L (136-145)
[2024-12-29 11:48] LABS: ALANINE AMINOTRANSFERASE 7 IU/L (0-55); ALBUMIN 3.3 g/dL (3.5-5.0); ALBUMIN/GLOBULIN RATIO 0.8 (0.8-2.0); ALKALINE PHOSPHATASE 86 IU/L (40-150); BUN/CREATININE RATIO 4 (6-25); CREATINE KINASE 41 IU/L (30-200); CREATININE, SERUM 5.91 mg/dL (0.72-1.25); EST GLOMERULAR FILTRATION RATE 10 ML/MIN (>=60); GLUCOSE 141 mg/dL (74-118); TOTAL PROTEIN 7.4 g/dL (6.5-8.1); VANCOMYCIN,TROUGH < 1.1 ug/mL (5.0-10.0)
== END ==
LOC: LAB 10:47
PROVIDERS: ATTEND Internal Medicine Infectious Disease
DX: E11.21 Type 2 diabetes mellitus with diabetic nephropathy (principal); I10 Essential (primary) hypertension; N18.6 End stage renal disease; Z99.2 Dependence on renal dialysis; E66.01 Morbid (severe) obesity due to excess calories
CPT/HCPCS: 36415; 80053; 80202; 82550; 85025; 86140

== ENCOUNTER → 2025-01-05 | Outpatient (REF) | payer MEDICARE, OTHER ==
[2025-01-05 10:42] LABS: BASOPHILS # (AUTO) 0.1 (0.0-0.1); BASOPHILS % 0.9 % (0.0-1.0); EOSINOPHILS # (AUTO) 0.1 (0.0-0.4); EOSINOPHILS % 1.8 % (0.0-6.0); HEMATOCRIT 33.4 % (38.2-49.6); HEMOGLOBIN 10.8 g/dL (14.0-18.0); LYMPHOCYTES # (AUTO) 1.1 (1.0-3.2); LYMPHOCYTES % 14.7 % (18.0-39.1); MEAN CORPUSCULAR HGB CONC 32.3 g/dL (31-35); MONOCYTES # (AUTO) 0.5 (0.2-0.8); MONOCYTES % 6.6 % (4.4-11.3); NEUTROPHILS # (AUTO) 5.9 (2.1-6.9); NEUTROPHILS % 75.6 % (38.7-80.0); PLATELET COUNT 215 x10e3/uL (140-360); RED BLOOD COUNT 3.48 x10e6/uL (4.3-5.7); RED CELL DISTRIBUTION WIDTH 13.6 % (11.7-14.4); WHITE BLOOD COUNT 7.74 x10e3/uL (4.8-10.8)
[2025-01-05 11:53] LABS: ALANINE AMINOTRANSFERASE 7 IU/L (0-55); ALBUMIN 3.3 g/dL (3.5-5.0); ALBUMIN/GLOBULIN RATIO 0.8 (0.8-2.0); ALKALINE PHOSPHATASE 77 IU/L (40-150); ANION GAP 16.5 mmol/L (8-16); BILIRUBIN,TOTAL 0.7 mg/dL (0.2-1.2); BLOOD UREA NITROGEN 15 mg/dL (7-26); BUN/CREATININE RATIO 3 (6-25); CALCIUM 9.9 mg/dL (8.4-10.2); CARBON DIOXIDE 29 mmol/L (22-29); CHLORIDE 96 mmol/L (98-107); CREATINE KINASE 35 IU/L (30-200); CREATININE, SERUM 5.25 mg/dL (0.72-1.25); EST GLOMERULAR FILTRATION RATE 12 ML/MIN (>=60); GLUCOSE 199 mg/dL (74-118); POTASSIUM 3.5 mmol/L (3.5-5.1); SODIUM 138 mmol/L (136-145); TOTAL PROTEIN 7.5 g/dL (6.5-8.1)
[2025-01-05 12:20] LABS: VANCOMYCIN,TROUGH < 1.1 ug/mL (5.0-10.0)
[2025-01-14 10:07] LABS: BASOPHILS % 0.6 % (0.0-1.0); EOSINOPHILS # (AUTO) 0.2 (0.0-0.4); EOSINOPHILS % 2.9 % (0.0-6.0); HEMATOCRIT 34.2 % (38.2-49.6); LYMPHOCYTES % 14.3 % (18.0-39.1); MEAN CORPUSCULAR HEMOGLOBIN 30.8 pg (28-32); MEAN CORPUSCULAR HGB CONC 32.2 g/dL (31-35); MEAN CORPUSCULAR VOLUME 95.8 fL (81-99); MONOCYTES # (AUTO) 0.6 (0.2-0.8); MONOCYTES % 8.6 % (4.4-11.3); NEUTROPHILS # (AUTO) 5.1 (2.1-6.9); NEUTROPHILS % 73.3 % (38.7-80.0); PLATELET COUNT 209 x10e3/uL (140-360); RED BLOOD COUNT 3.57 x10e6/uL (4.3-5.7); RED CELL DISTRIBUTION WIDTH 13.5 % (11.7-14.4); WHITE BLOOD COUNT 6.97 x10e3/uL (4.8-10.8)
[2025-01-14 11:10] LABS: ALANINE AMINOTRANSFERASE 9 IU/L (0-55); ALBUMIN 3.5 g/dL (3.5-5.0); ALBUMIN/GLOBULIN RATIO 0.8 (0.8-2.0); ALKALINE PHOSPHATASE 83 IU/L (40-150); ANION GAP 18.1 mmol/L (8-16); BILIRUBIN,TOTAL 0.8 mg/dL (0.2-1.2); BLOOD UREA NITROGEN 20 mg/dL (7-26); BUN/CREATININE RATIO 4 (6-25); CALCIUM 9.4 mg/dL (8.4-10.2); CARBON DIOXIDE 28 mmol/L (22-29); CHLORIDE 95 mmol/L (98-107); CREATINE KINASE 38 IU/L (30-200); CREATININE, SERUM 5.33 mg/dL (0.72-1.25); EST GLOMERULAR FILTRATION RATE 12 ML/MIN (>=60); GLUCOSE 109 mg/dL (74-118); POTASSIUM 4.1 mmol/L (3.5-5.1); SODIUM 137 mmol/L (136-145); TOTAL PROTEIN 7.9 g/dL (6.5-8.1)
[2025-01-14 11:12] LABS: VANCOMYCIN,TROUGH < 1.1 ug/mL (5.0-10.0)
[2025-01-19 10:59] LABS: BASOPHILS # (AUTO) 0.1 (0.0-0.1); BASOPHILS % 0.8 % (0.0-1.0); EOSINOPHILS # (AUTO) 0.2 (0.0-0.4); EOSINOPHILS % 2.2 % (0.0-6.0); HEMATOCRIT 30.9 % (38.2-49.6); HEMOGLOBIN 9.9 g/dL (14.0-18.0); LYMPHOCYTES % 13.9 % (18.0-39.1); MEAN CORPUSCULAR HEMOGLOBIN 30.7 pg (28-32); MONOCYTES # (AUTO) 0.6 (0.2-0.8); MONOCYTES % 8.2 % (4.4-11.3); NEUTROPHILS # (AUTO) 5.4 (2.1-6.9); NEUTROPHILS % 74.5 % (38.7-80.0); PLATELET COUNT 198 x10e3/uL (140-360); RED BLOOD COUNT 3.22 x10e6/uL (4.3-5.7); RED CELL DISTRIBUTION WIDTH 13.5 % (11.7-14.4); WHITE BLOOD COUNT 7.21 x10e3/uL (4.8-10.8)
[2025-01-19 11:29] LABS: ALANINE AMINOTRANSFERASE 6 IU/L (0-55); ALBUMIN 3.2 g/dL (3.5-5.0); ALBUMIN/GLOBULIN RATIO 0.8 (0.8-2.0); ALKALINE PHOSPHATASE 73 IU/L (40-150); ANION GAP 18.5 mmol/L (8-16); BILIRUBIN,TOTAL 0.6 mg/dL (0.2-1.2); BLOOD UREA NITROGEN 19 mg/dL (7-26); BUN/CREATININE RATIO 4 (6-25); CALCIUM 9.3 mg/dL (8.4-10.2); CARBON DIOXIDE 28 mmol/L (22-29); CHLORIDE 97 mmol/L (98-107); CREATINE KINASE 46 IU/L (30-200); CREATININE, SERUM 5.32 mg/dL (0.72-1.25); EST GLOMERULAR FILTRATION RATE 12 ML/MIN (>=60); GLUCOSE 150 mg/dL (74-118); POTASSIUM 4.5 mmol/L (3.5-5.1); SODIUM 139 mmol/L (136-145); TOTAL PROTEIN 7.3 g/dL (6.5-8.1)
[2025-01-19 11:30] LABS: VANCOMYCIN,TROUGH < 1.1 ug/mL (5.0-10.0)
== END ==
LOC: LAB 10:35
PROVIDERS: ATTEND Internal Medicine Infectious Disease
DX: E11.21 Type 2 diabetes mellitus with diabetic nephropathy (principal); I10 Essential (primary) hypertension; Z99.2 Dependence on renal dialysis; E66.01 Morbid (severe) obesity due to excess calories
CPT/HCPCS: 36415; 80053; 80202; 82550; 85025; 86140

== ENCOUNTER → 2025-01-14 | Outpatient (REF) | payer MEDICARE, OTHER | LOC: LAB 09:59 | PROVIDERS: ATTEND Internal Medicine Infectious Disease | DX: E11.21 Type 2 diabetes mellitus with diabetic nephropathy (principal); I10 Essential (primary) hypertension; N18.6 End stage renal disease; Z99.2 Dependence on renal dialysis; E66.01 Morbid (severe) obesity due to excess calories ==

== ENCOUNTER → 2025-01-19 | Outpatient (REF) | payer MEDICARE, OTHER | LOC: LAB 10:59 | PROVIDERS: ATTEND Internal Medicine Infectious Disease | DX: E11.21 Type 2 diabetes mellitus with diabetic nephropathy (principal); I10 Essential (primary) hypertension; N18.6 End stage renal disease; Z99.2 Dependence on renal dialysis; E66.01 Morbid (severe) obesity due to excess calories ==

== ENCOUNTER → 2025-01-26 | Outpatient (REF) | payer MEDICARE, OTHER | LOC: WCC 13:07 | PROVIDERS: ATTEND Nurse Practitioner Family | DX: E11.621 Type 2 diabetes mellitus with foot ulcer (principal); M86.172 Other acute osteomyelitis, left ankle and foot; L97.424 Non-pressure chronic ulcer of left heel and midfoot with necrosis of bone ==

== ENCOUNTER → 2025-01-26 | Outpatient (REF) | payer MEDICARE, OTHER ==
[2025-01-26 11:25] LABS: BASOPHILS % 0.6 % (0.0-1.0); EOSINOPHILS # (AUTO) 0.2 (0.0-0.4); EOSINOPHILS % 2.7 % (0.0-6.0); HEMATOCRIT 31.6 % (38.2-49.6); HEMOGLOBIN 10.1 g/dL (14.0-18.0); LYMPHOCYTES # (AUTO) 0.9 (1.0-3.2); LYMPHOCYTES % 15.1 % (18.0-39.1); MEAN CORPUSCULAR HEMOGLOBIN 30.9 pg (28-32); MEAN CORPUSCULAR VOLUME 96.6 fL (81-99); MONOCYTES # (AUTO) 0.5 (0.2-0.8); MONOCYTES % 8.4 % (4.4-11.3); NEUTROPHILS # (AUTO) 4.5 (2.1-6.9); NEUTROPHILS % 72.9 % (38.7-80.0); PLATELET COUNT 195 x10e3/uL (140-360); RED BLOOD COUNT 3.27 x10e6/uL (4.3-5.7); RED CELL DISTRIBUTION WIDTH 13.9 % (11.7-14.4); WHITE BLOOD COUNT 6.22 x10e3/uL (4.8-10.8)
[2025-01-26 11:51] LABS: ALANINE AMINOTRANSFERASE 8 IU/L (0-55); ALBUMIN 3.4 g/dL (3.5-5.0); BILIRUBIN,TOTAL 0.7 mg/dL (0.2-1.2); BLOOD UREA NITROGEN 24 mg/dL (7-26); BUN/CREATININE RATIO 4 (6-25); CALCIUM 8.9 mg/dL (8.4-10.2); CARBON DIOXIDE 27 mmol/L (22-29); CHLORIDE 98 mmol/L (98-107); CREATININE, SERUM 6.02 mg/dL (0.72-1.25); EST GLOMERULAR FILTRATION RATE 10 ML/MIN (>=60); GLUCOSE 154 mg/dL (74-118); SODIUM 142 mmol/L (136-145); TOTAL PROTEIN 7.4 g/dL (6.5-8.1)
[2025-01-26 11:52] LABS: ALBUMIN/GLOBULIN RATIO 0.9 (0.8-2.0); ALKALINE PHOSPHATASE 90 IU/L (40-150); CREATINE KINASE 57 IU/L (30-200); VANCOMYCIN,TROUGH < 1.1 ug/mL (5.0-10.0)
== END ==
LOC: LAB 11:00
PROVIDERS: ATTEND Internal Medicine Infectious Disease
DX: E11.21 Type 2 diabetes mellitus with diabetic nephropathy (principal); I10 Essential (primary) hypertension; N18.6 End stage renal disease; Z99.2 Dependence on renal dialysis; E66.01 Morbid (severe) obesity due to excess calories
CPT/HCPCS: 36415; 80053; 80202; 82550; 85025; 86140

== ENCOUNTER → 2025-02-02 | Outpatient (REF) | payer MEDICARE, OTHER ==
[2025-02-02 10:44] LABS: BASOPHILS # (AUTO) 0.1 (0.0-0.1); EOSINOPHILS # (AUTO) 0.2 (0.0-0.4); EOSINOPHILS % 2.7 % (0.0-6.0); HEMATOCRIT 32.9 % (38.2-49.6); HEMOGLOBIN 10.3 g/dL (14.0-18.0); LYMPHOCYTES # (AUTO) 0.9 (1.0-3.2); LYMPHOCYTES % 14.9 % (18.0-39.1); MEAN CORPUSCULAR HEMOGLOBIN 30.8 pg (28-32); MEAN CORPUSCULAR HGB CONC 31.3 g/dL (31-35); MEAN CORPUSCULAR VOLUME 98.5 fL (81-99); MONOCYTES # (AUTO) 0.6 (0.2-0.8); MONOCYTES % 9.9 % (4.4-11.3); NEUTROPHILS # (AUTO) 4.5 (2.1-6.9); NEUTROPHILS % 71.2 % (38.7-80.0); PLATELET COUNT 176 x10e3/uL (140-360); RED BLOOD COUNT 3.34 x10e6/uL (4.3-5.7); RED CELL DISTRIBUTION WIDTH 13.5 % (11.7-14.4); WHITE BLOOD COUNT 6.26 x10e3/uL (4.8-10.8)
[2025-02-02 11:21] LABS: ALANINE AMINOTRANSFERASE 9 IU/L (0-55); ALBUMIN 3.5 g/dL (3.5-5.0); ALBUMIN/GLOBULIN RATIO 0.9 (0.8-2.0); ALKALINE PHOSPHATASE 72 IU/L (40-150); ANION GAP 18.5 mmol/L (8-16); BILIRUBIN,TOTAL 0.8 mg/dL (0.2-1.2); BLOOD UREA NITROGEN 21 mg/dL (7-26); BUN/CREATININE RATIO 4 (6-25); CARBON DIOXIDE 26 mmol/L (22-29); CHLORIDE 97 mmol/L (98-107); CREATINE KINASE 47 IU/L (30-200); CREATININE, SERUM 5.15 mg/dL (0.72-1.25); EST GLOMERULAR FILTRATION RATE 12 ML/MIN (>=60); GLUCOSE 130 mg/dL (74-118); POTASSIUM 4.5 mmol/L (3.5-5.1); SODIUM 137 mmol/L (136-145); TOTAL PROTEIN 7.6 g/dL (6.5-8.1)
[2025-02-02 11:24] LABS: VANCOMYCIN,TROUGH < 1.1 ug/mL (5.0-10.0)
== END ==
LOC: LAB 10:15
PROVIDERS: ATTEND Internal Medicine Infectious Disease
DX: E11.21 Type 2 diabetes mellitus with diabetic nephropathy (principal); I10 Essential (primary) hypertension; N18.6 End stage renal disease; Z99.2 Dependence on renal dialysis; E66.01 Morbid (severe) obesity due to excess calories
CPT/HCPCS: 36415; 80053; 80202; 82550; 85025; 86140

== ENCOUNTER → 2025-02-23 | Outpatient (REF) | payer MEDICARE, OTHER ==
[2025-02-23 11:02] LABS: ALANINE AMINOTRANSFERASE 12 IU/L (0-55); ALBUMIN 3.6 g/dL (3.5-5.0); ALBUMIN/GLOBULIN RATIO 0.9 (0.8-2.0); ALKALINE PHOSPHATASE 82 IU/L (40-150); ANION GAP 20.5 mmol/L (8-16); BILIRUBIN,TOTAL 0.7 mg/dL (0.2-1.2); BLOOD UREA NITROGEN 29 mg/dL (7-26); BUN/CREATININE RATIO 5 (6-25); CALCIUM 9.1 mg/dL (8.4-10.2); CARBON DIOXIDE 27 mmol/L (22-29); CHLORIDE 96 mmol/L (98-107); CREATINE KINASE 50 IU/L (30-200); CREATININE, SERUM 5.64 mg/dL (0.72-1.25); EST GLOMERULAR FILTRATION RATE 11 ML/MIN (>=60); GLUCOSE 186 mg/dL (74-118); POTASSIUM 4.5 mmol/L (3.5-5.1); SODIUM 139 mmol/L (136-145); TOTAL PROTEIN 7.6 g/dL (6.5-8.1)
[2025-02-23 11:03] LABS: VANCOMYCIN,TROUGH < 1.1 ug/mL (5.0-10.0)
[2025-02-23 11:10] LABS: BASOPHILS # (AUTO) 0.1 (0.0-0.1); BASOPHILS % 1.1 % (0.0-1.0); EOSINOPHILS # (AUTO) 0.2 (0.0-0.4); EOSINOPHILS % 3.5 % (0.0-6.0); HEMOGLOBIN 11.6 g/dL (14.0-18.0); LYMPHOCYTES # (AUTO) 1.2 (1.0-3.2); LYMPHOCYTES % 17.4 % (18.0-39.1); MEAN CORPUSCULAR HGB CONC 31.4 g/dL (31-35); MEAN CORPUSCULAR VOLUME 98.9 fL (81-99); MONOCYTES # (AUTO) 0.6 (0.2-0.8); MONOCYTES % 9.2 % (4.4-11.3); NEUTROPHILS # (AUTO) 4.5 (2.1-6.9); NEUTROPHILS % 68.5 % (38.7-80.0); PLATELET COUNT 211 x10e3/uL (140-360); RED BLOOD COUNT 3.74 x10e6/uL (4.3-5.7); RED CELL DISTRIBUTION WIDTH 14.2 % (11.7-14.4)
== END ==
LOC: LAB 09:59
PROVIDERS: ATTEND Internal Medicine Infectious Disease
DX: E11.21 Type 2 diabetes mellitus with diabetic nephropathy (principal); I10 Essential (primary) hypertension; N18.6 End stage renal disease; Z99.2 Dependence on renal dialysis; E66.01 Morbid (severe) obesity due to excess calories
CPT/HCPCS: 36415; 80053; 80202; 82550; 85025; 86140

== ENCOUNTER → 2025-03-09 | Outpatient (REF) | payer MEDICARE, OTHER ==
[2025-03-09 10:17] LABS: BASOPHILS # (AUTO) 0.1 (0.0-0.1); BASOPHILS % 0.6 % (0.0-1.0); EOSINOPHILS # (AUTO) 0.2 (0.0-0.4); EOSINOPHILS % 2.2 % (0.0-6.0); HEMATOCRIT 35.7 % (38.2-49.6); HEMOGLOBIN 11.4 g/dL (14.0-18.0); LYMPHOCYTES # (AUTO) 1.1 (1.0-3.2); LYMPHOCYTES % 13.1 % (18.0-39.1); MEAN CORPUSCULAR HEMOGLOBIN 31.1 pg (28-32); MEAN CORPUSCULAR HGB CONC 31.9 g/dL (31-35); MEAN CORPUSCULAR VOLUME 97.3 fL (81-99); MONOCYTES # (AUTO) 0.7 (0.2-0.8); MONOCYTES % 8.3 % (4.4-11.3); NEUTROPHILS # (AUTO) 6.1 (2.1-6.9); NEUTROPHILS % 75.4 % (38.7-80.0); PLATELET COUNT 228 x10e3/uL (140-360); RED BLOOD COUNT 3.67 x10e6/uL (4.3-5.7); RED CELL DISTRIBUTION WIDTH 14.1 % (11.7-14.4); WHITE BLOOD COUNT 8.07 x10e3/uL (4.8-10.8)
[2025-03-09 11:09] LABS: ALANINE AMINOTRANSFERASE 12 IU/L (0-55); ALBUMIN 3.8 g/dL (3.5-5.0); ALBUMIN/GLOBULIN RATIO 0.9 (0.8-2.0); ALKALINE PHOSPHATASE 93 IU/L (40-150); ANION GAP 19.9 mmol/L (8-16); BILIRUBIN,TOTAL 0.7 mg/dL (0.2-1.2); BLOOD UREA NITROGEN 26 mg/dL (7-26); BUN/CREATININE RATIO 4 (6-25); CALCIUM 10.4 mg/dL (8.4-10.2); CARBON DIOXIDE 28 mmol/L (22-29); CHLORIDE 99 mmol/L (98-107); CREATINE KINASE 54 IU/L (30-200); CREATININE, SERUM 5.91 mg/dL (0.72-1.25); EST GLOMERULAR FILTRATION RATE 10 ML/MIN (>=60); GLUCOSE 156 mg/dL (74-118); POTASSIUM 3.9 mmol/L (3.5-5.1); SODIUM 143 mmol/L (136-145); TOTAL PROTEIN 8.2 g/dL (6.5-8.1)
[2025-03-09 11:13] LABS: VANCOMYCIN,TROUGH < 1.1 ug/mL (5.0-10.0)
== END ==
LOC: LAB 10:10
PROVIDERS: ATTEND Internal Medicine Infectious Disease
DX: E11.21 Type 2 diabetes mellitus with diabetic nephropathy (principal); I10 Essential (primary) hypertension; N18.6 End stage renal disease; Z99.2 Dependence on renal dialysis; E66.01 Morbid (severe) obesity due to excess calories
CPT/HCPCS: 36415; 80053; 80202; 82550; 85025; 86140

== ENCOUNTER → 2025-03-18 | Outpatient (REF) | payer MEDICARE, OTHER ==
[2025-03-18 08:35] LABS: BASOPHILS % 0.8 % (0.0-1.0); EOSINOPHILS % 2.4 % (0.0-6.0); LYMPHOCYTES % 19.3 % (18.0-39.1); MONOCYTES % 11.5 % (4.4-11.3); NEUTROPHILS % 65.7 % (38.7-80.0); RED CELL DISTRIBUTION WIDTH 14.5 % (11.7-14.4)
[2025-03-18 09:39] LABS: EST GLOMERULAR FILTRATION RATE 11 ML/MIN (>=60)
== END ==
LOC: LAB 08:12
PROVIDERS: ATTEND Internal Medicine Infectious Disease
DX: E11.21 Type 2 diabetes mellitus with diabetic nephropathy (principal); I10 Essential (primary) hypertension; N18.6 End stage renal disease; Z99.2 Dependence on renal dialysis; E66.01 Morbid (severe) obesity due to excess calories
CPT/HCPCS: 36415; 80053; 80202; 82550; 85025; 86140

== ENCOUNTER → 2025-04-01 | Outpatient (REF) | payer MEDICARE, OTHER ==
[2025-04-01 10:35] LABS: BASOPHILS % 0.6 % (0.0-1.0); EOSINOPHILS % 2.3 % (0.0-6.0); LYMPHOCYTES % 17.6 % (18.0-39.1); MONOCYTES % 8.4 % (4.4-11.3); NEUTROPHILS % 70.8 % (38.7-80.0); RED CELL DISTRIBUTION WIDTH 14.1 % (11.7-14.4)
[2025-04-01 12:12] LABS: EST GLOMERULAR FILTRATION RATE 9.0 ML/MIN (>=60)
== END ==
LOC: LAB 10:09 → RAD 10:09
PROVIDERS: ATTEND Internal Medicine Infectious Disease
DX: M86.372 Chronic multifocal osteomyelitis, left ankle and foot (principal)
CPT/HCPCS: 36415; 80053; 85025; 86140

== ENCOUNTER 2025-04-14 08:00 | Outpatient (RCR) | payer MEDICARE, OTHER ==
[2025-04-15] MEDS ORDERED: BENZONATATE200 MG PO (08:44)
[2025-04-15] MEDS ORDERED: DOXYCYCLINE HY100 MG PO (08:44)
[2025-04-15] MEDS ORDERED: DULERA 200 MCG/13 GM (08:44)
== END 2025-04-15 ==
LOC: WCC 08:00
PROVIDERS: ATTEND Nurse Practitioner Family
DX: E11.621 Type 2 diabetes mellitus with foot ulcer (principal); L97.424 Non-pressure chronic ulcer of left heel and midfoot with necrosis of bone

== ENCOUNTER → 2025-04-15 | Outpatient (REF) | payer MEDICARE, OTHER ==
[~2025-04-15] MED LIST changes: +BENZONATATE200 MG PO; +DOXYCYCLINE HY100 MG PO; +DULERA 200 MCG/13 GM
[2025-04-15 13:06] LABS: BASOPHILS % 0.7 % (0.0-1.0); EOSINOPHILS % 1.8 % (0.0-6.0); LYMPHOCYTES % 13.7 % (18.0-39.1); MONOCYTES % 8.2 % (4.4-11.3); NEUTROPHILS % 75.5 % (38.7-80.0); RED CELL DISTRIBUTION WIDTH 13.9 % (11.7-14.4)
[2025-04-15 13:27] LABS: EST GLOMERULAR FILTRATION RATE 9.0 ML/MIN (>=60)
== END ==
LOC: LAB 12:15
PROVIDERS: ATTEND Internal Medicine Infectious Disease
DX: M86.372 Chronic multifocal osteomyelitis, left ankle and foot (principal)
CPT/HCPCS: 36415; 80053; 85025; 86140

== ENCOUNTER → 2025-04-22 | Day surgery (SDC) | payer MEDICARE, OTHER ==
[~2025-04-22] MED LIST changes: +DEXAMETHASONE SOD PHOS INJ 4 MG/ML SDV ONE; +FENTANYL CITRATE/PF 100MCG/2 ML INJ ONE; +HYDRALAZINE HCL 20 MG/ML VIAL ONE; +LIDOCAINE HCL 2% LOCAL INJ 5 ML SDV VIAL INJ ONE; +MIDAZOLAM HCL 2 MG/2 ML VIAL ONE; +ONDANSETRON HCL INJ 2MG/ML 2ML 2 MG/ML VIAL ONE; +PROPOFOL IV EMULSION 10 MG/ML 20 ML VIAL ONE; +SODIUM CHLORIDE 0.9% 100 ML ONE; +SUCCINYLCHOLINE CHLORIDE 20 MG/ML 10ML VIAL ONE
[2025-04-22 06:19] LABS: BASOPHILS % 0.8 % (0.0-1.0); EOSINOPHILS % 2.6 % (0.0-6.0); LYMPHOCYTES % 16.4 % (18.0-39.1); MONOCYTES % 9.5 % (4.4-11.3); NEUTROPHILS % 70.4 % (38.7-80.0); RED CELL DISTRIBUTION WIDTH 13.8 % (11.7-14.4)
[2025-04-22 06:39] LABS: INR 0.99
[2025-04-22 06:44] LABS: EST GLOMERULAR FILTRATION RATE 12.0 ML/MIN (>=60)
[2025-04-22 08:10] VITALS: TEMP 97.8
[2025-04-22] MEDS: SODIUM CHLORIDE 0.9% 500ML 500 ML ONE (09:20)
[2025-04-22 10:00] VITALS: BP 128/66; PULSE 67; RESP 16; O2SAT 100
== END | disposition home or self-care (01) ==
LOC: OR 05:10
PROVIDERS: ATTEND Podiatrist Foot Surgery
DX: E11.621 Type 2 diabetes mellitus with foot ulcer (principal); L97.522 Non-pressure chronic ulcer of other part of left foot with fat layer exposed; L97.528 Non-pressure chronic ulcer of other part of left foot with other specified severity; E11.51 Type 2 diabetes mellitus with diabetic peripheral angiopathy without gangrene; E11.22 Type 2 diabetes mellitus with diabetic chronic kidney disease; I13.11 Hypertensive heart and chronic kidney disease without heart failure, with stage 5 chronic kidney disease, or end stage renal disease; N18.6 End stage renal disease; Z79.01 Long term (current) use of anticoagulants; Z79.899 Other long term (current) drug therapy; Z79.4 Long term (current) use of insulin; Z89.422 Acquired absence of other left toe(s); Z87.2 Personal history of diseases of the skin and subcutaneous tissue; Z86.73 Personal history of transient ischemic attack (TIA), and cerebral infarction without residual deficits; Z01.810 Encounter for preprocedural cardiovascular examination; Z01.812 Encounter for preprocedural laboratory examination; Z95.0 Presence of cardiac pacemaker; Z99.2 Dependence on renal dialysis
CPT/HCPCS: 15004; 15275; 36415; 80048; 82948; 85025; 85610; 85730; 87071; 87075; 87186; 87205; 93005; J0330; J0360; J1100; J2003; J2250; J2405; J2704; J3010; J7040; J7050; Q4104; Q4118

== ENCOUNTER → 2025-05-05 | Outpatient (REF) | payer MEDICARE, OTHER ==
[~2025-05-05] MED LIST changes: -DEXAMETHASONE SOD PHOS INJ 4 MG/ML SDV ONE; -FENTANYL CITRATE/PF 100MCG/2 ML INJ ONE; -HYDRALAZINE HCL 20 MG/ML VIAL ONE; -LIDOCAINE HCL 2% LOCAL INJ 5 ML SDV VIAL INJ ONE; -MIDAZOLAM HCL 2 MG/2 ML VIAL ONE; -ONDANSETRON HCL INJ 2MG/ML 2ML 2 MG/ML VIAL ONE; -PROPOFOL IV EMULSION 10 MG/ML 20 ML VIAL ONE; -SODIUM CHLORIDE 0.9% 100 ML ONE; -SUCCINYLCHOLINE CHLORIDE 20 MG/ML 10ML VIAL ONE
[2025-05-05 09:16] LABS: BASOPHILS % 0.4 % (0.0-1.0); EOSINOPHILS % 2.4 % (0.0-6.0); LYMPHOCYTES % 12.5 % (18.0-39.1); MONOCYTES % 9.1 % (4.4-11.3); NEUTROPHILS % 75.3 % (38.7-80.0); RED CELL DISTRIBUTION WIDTH 13.6 % (11.7-14.4)
[2025-05-05 09:51] LABS: EST GLOMERULAR FILTRATION RATE 7.0 ML/MIN (>=60)
== END ==
LOC: LAB 08:58
PROVIDERS: ATTEND Internal Medicine Infectious Disease
DX: M86.372 Chronic multifocal osteomyelitis, left ankle and foot (principal)
CPT/HCPCS: 36415; 80053; 85025; 86140

== ENCOUNTER 2025-05-14 08:30 | Outpatient (RCR) | payer MEDICARE, OTHER ==
[~2025-05-14 08:30] MED LIST changes: +MINERAL OIL/PETROLAT/GLYCERI 6OZ BTL ONE
== END 2025-05-16 ==
LOC: WCC 08:30
PROVIDERS: ATTEND Nurse Practitioner Family
DX: E11.621 Type 2 diabetes mellitus with foot ulcer (principal); L97.424 Non-pressure chronic ulcer of left heel and midfoot with necrosis of bone

== ENCOUNTER 2025-06-04 08:30 | Outpatient (RCR) | payer MEDICARE, OTHER ==
[~2025-06-04 08:30] MED LIST changes: -MINERAL OIL/PETROLAT/GLYCERI 6OZ BTL ONE
== END 2025-06-15 ==
LOC: WCC 08:30
PROVIDERS: ATTEND Internal Medicine Infectious Disease
DX: E11.621 Type 2 diabetes mellitus with foot ulcer (principal); L97.424 Non-pressure chronic ulcer of left heel and midfoot with necrosis of bone